=== PATIENT | male | born 1965 | race African-American/Black ===

== ENCOUNTER → 2017-07-27 | Outpatient (CLI) | payer OTHER ==
[~2017-07-27] MED LIST: ASPCH81X PO; CLB/200 PO; FENT50DI19 TD; INSDGI SC; LISI-787 PO; METF-384 PO; NAPR-1169 PO; NVLGI SC; SIMV20TA2 PO; TRAM-10 PO
[2017-07-27 13:02] LABS: ESTIMATED AVERAGE GLUCOSE 214 mg/dl; HA1C FLAG Normal (Normal)
[2017-07-27 13:26] LABS: BLOOD UREA NITROGEN 13 mg/dl (7-18); BUN/CREATININE RATIO 11.4 (10-20); CALCIUM 9.1 mg/dl (8.5-10.1); CARBON DIOXIDE 29 mmol/L (21-32); CHLORIDE 100 mmol/L (98-107); GLUCOSE 325 mg/dl (70-99); POTASSIUM 4.3 mmol/L (3.5-5.1); SODIUM 135 mmol/L (136-145)
== END | disposition home or self-care (01) ==
LOC: C.LABPVFM 09:07
PROVIDERS: ATTEND Nurse Practitioner
DX: E11.65 Type 2 diabetes mellitus with hyperglycemia (principal); I10 Essential (primary) hypertension

== ENCOUNTER → 2017-08-10 | Outpatient (CLI) | payer OTHER ==
[~2017-08-10] VITALS: Ht 170.2 cm; Wt 92.4 kg
[2017-08-10 15:05] VITALS: Ht 170.2 cm; Wt 92.4 kg
--- NOTE | 2017-08-10 15:28 | PAT Medication Instructions ---
Service Date Aug 10, 2017. 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 Instructions For Your Scheduled Surgery - Hold the following medications 48 hours prior to surgery: Metformin Hcl (Glucophage), 1,000 MG PO BID - Hold the following medications the morning of surgery: Celecoxib (CeleBREX), 200 MG PO QAM (otherwise okay to continue per surgeon) Insulin Aspart (Novolog), 1 DOSE SC AC PRN for SLIDING SCALE Lisinopril/Hctz (Zestoretic 20MG/12.5MG), 1 TAB PO QAM - Take the following medications the morning of surgery with a sip of water OTHERWISE NOTHING TO EAT OR DRINK AFTER MIDNIGHT: Tramadol (Ultram), 100 MG PO Q6H PRN (may take if needed up to 4 hours prior to surgery) Simvastatin (Zocor), 20 MG PO QAM - For Insulin Dependent Diabetic patients: Test blood sugar A.M. of surgery. - If Blood Sugar is GREATER THAN 150, take HALF of your regular dose of: Insulin Glargine (Lantus) - If Blood Sugar is LESS THAN 150, do not take any: Insulin Glargine ( Lantus) - Take the following medications as scheduled the night before surgery: Tramadol (Ultram), 100 MG PO Q6H PRN Insulin Aspart (Novolog), 1 DOSE SC AC PRN for SLIDING SCALE If you have any questions please call us at [phone] or [phone] or [phone]
[2017-08-10 16:15] LABS: BASO % 0.2 %; BASO ABS # 0.02 K/uL (0-0.2); COMPLETE YES; EOS % 1.1 %; HEMATOCRIT 41.5 % (42-52); IG% 0.6 %; LYMPH % 30.1 %; LYMPH ABS # 3.26 K/uL (1.2-3.4); MEAN CORPUSCULAR HEMOGLOBIN 27.9 pg (25-34); MEAN CORPUSCULAR HGB CONC 32.8 g/dl (32-36); MEAN PLATELET VOLUME 10.8 fL (7.4-10.4); MONO % 6.2 %; NEUT % 61.8 %; PLATELET COUNT 278 K/uL (130-400); RED BLOOD COUNT 4.88 M/uL (4.7-6.1); WHITE BLOOD COUNT 10.82 K/uL (4.8-10.8)
[2017-08-10 16:28] LABS: PARTIAL THROMBOPLASTIN RATIO 1.1; PROTHROMBIN TIME (PATIENT) 10.5 SECONDS (9.0-12.0)
--- NOTE | 2017-08-10 19:30 | DIAGNOSTIC IMAGING REPORT ---
CHEST 2 VIEWS ROUTINE HISTORY: Preop. COMPARISON: Chest 03/03/2016. FINDINGS: The lungs are clear. Cardiac silhouette is normal in size. No pleural effusions. No pneumothorax. IMPRESSION: No acute process. Electronically signed by: Christian Mitchell M.D. 08/10/2017 7:28 PM Dictated Date/Time: 08/10/2017 4:05 PM
[2017-08-11 06:12] LABS: ESTIMATED AVERAGE GLUCOSE 200 mg/dl; HA1C FLAG Normal (Normal)
--- NOTE | 2017-10-05 09:22 | CODING QUERY MEDICAL NECESSITY ---
SUPPORTING DIAGNOSIS NEEDED A supporting diagnosis is required for the test/procedure performed on this patient in order for us to be reimbursed by the patient's insurance. Please provide a supporting diagnosis for the following test/procedure listed below next to the test name along with your signature. *If there is no additional diagnosis for this patient that would support the following test/procedure please document that below next to the test/procedure. Test(s)/Procedure(s) that require a supporting diagnosis: * HEMOGLOBIN A1C DIAGNOSIS: Provider Signature: Date: Thank you Mitra Jarquin [employer] Once completed, please kindly fax back to [phone] For questions please call [phone]
== END | disposition home or self-care (01) ==
LOC: C.LAB 08:00 → EDSTATUS 08-19 13:00
DX: Z01.810 Encounter for preprocedural cardiovascular examination (principal); Z01.811 Encounter for preprocedural respiratory examination; Z01.812 Encounter for preprocedural laboratory examination; M17.12 Unilateral primary osteoarthritis, left knee; R94.31 Abnormal electrocardiogram [ECG] [EKG]

== ENCOUNTER 2017-11-27 16:44 | Emergency (ER) | payer OTHER ==
[~2017-11-27] VITALS: Ht 170.2 cm; Wt 89.4 kg
[~2017-11-27 16:44] MED LIST changes: -ASPCH81X PO; -FENT50DI19 TD; -NAPR-1169 PO
[2017-11-27 16:53] VITALS: TEMP 36.7; Ht 170.2 cm; Wt 89.4 kg
[2017-11-27] MEDS ORDERED: INSDGIPEN SQ (17:04)
[2017-11-27] MEDS ORDERED: SIMV-151 (17:04)
[2017-11-27] MEDS ORDERED: NVLGI/PEN SQ (17:04)
[2017-11-27] MEDS ORDERED: AMPICILLIN/SULBACTAM SOD INJ 3,000 MG in SODIUM CHLORIDE 0.9% 100ML 100 ML IV STA (17:13)
[2017-11-27] MEDS ORDERED: KETOROLAC TROMETHAMINE 30 MG/ML VIAL IV STA (17:13)
[2017-11-27] MEDS ORDERED: LIDOCAINE/EPINEPH/TETRACAINE 1 EA SYR EXT STA (17:23)
--- NOTE | 2017-11-27 17:24 | EMERGENCY ROOM VISIT NOTE ---
ED Visit Note First contact with patient: 16:57 CHIEF COMPLAINT: Toothache HISTORY OF PRESENT ILLNESS: This 52-year-old male patient presented to the emergency department with a progressive toothache for past 1 week. The patient believes it is coming from the upper left teeth. The pain is now steady and severe and radiates to the face. The patient states he has "bad teeth and they need to be pulled" but does not have a dentist appointment set up and states he has been having trouble getting set up because of problems with his insurance. They rate their pain a 8/10. He states he has not tried any [id number] medications for the pain, but does admit to taking "a pain pill that someone gave me, I know it's illegal, but I just needed something for the pain" He reports the past 2 days that he has had a "bad taste" in his mouth and has noticed pus drainage from around the painful teeth. He has also noticed some increased swelling of his upper lip and cheek. He denies any fevers, chills, headache, vision changes, neck pain or stiffness, difficulty swallowing, sore throat, ear pain, cough, congestion, chest pain, SOB, nausea or vomiting, urinary symptoms, or rash. Patient is a diabetic, on metformin and insulin, and states that he does not check his blood sugars often, but states "they are always high." REVIEW OF SYSTEMS: A complete 10 point review of systems was reviewed with the patient with pertinent positives and negatives as per history of present illness. All else were negative. ALLERGIES: No known allergies MEDICATIONS: Reviewed in chart PMH: Insulin-dependent diabetic, hypertension, hyperlipidemia, chronic pain SOCIAL HISTORY: Lives at home. Current every day smoker. PHYSICAL EXAM: Vitals are noted on the nurse's note and reviewed by myself. Vital signs stable , afebrile. CONSTITUTIONAL: Pleasant and cooperative. No acute distress, but does appear to be in pain. Mild dehydrated. Disheveled appearance with strong smell of cigarette smoke. HEENT: Normocephalic, atraumatic. Pupils equal, round and reactive to light, EOMI, normal conjunctiva bilaterally. TMs normal. Pharynx normal. Dry mucous membranes. MOUTH: Poor dentition noted throughout the mouth with several broken and carious teeth. 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 No discharge noted. The airway is patent. There is mild left upper lip swelling, with tenderness extending up toward the cheek. NECK: Supple, full active range of motion without discomfort.There is no cervical or submandibular lymphadenopathy. RESPIRATORY: Clear to auscultation bilaterally with no wheezing, crackles, rhonchi or stridor. Equal expansion bilaterally. CARDIOVASCULAR: Regular rate and rhythm with no murmurs, rubs or gallops. Normal peripheral perfusion. No edema. GASTROINTESTINAL: Soft, nontender, nondistended. No palpable masses or HSM. Bowel sounds present in all quadrants. MUSCULOSKELETAL: Full range of motion of all joints without discomfort. INTEGUMENTARY: No rash or other significant dermatologic conditions noted. NEUROLOGIC: Alert and oriented X 4 with normal affect. Cranial nerves II-XII grossly intact. No focal neurologic deficits noted. Normal strength and sensation of all 4 extremities. Normal gait observed. Normal speech. Finger- nose-finger testing normal. ED COURSE: I examined the patient. Differential diagnosis includes dental pain , gingivitis, dental caries, periapical abscess, dental fracture, facial cellulitis, hyperglycemia, DKA, poor compliance with medications, among others. Patient has very poor dentition throughout the mouth. There is evidence of a moderate left upper periapical abscess near teeth #11 and 12. There is mild swelling and tenderness of the upper lip, there is no significant facial pain or swelling. Given patient's history of diabetes, labs were assessed, noting significant hyperglycemia with associated hyponatremia/hypochloremia. Labs are otherwise consistent with previous baseline. Patient was given Toradol for pain. 1 L normal saline IV and 10 units regular insulin subcutaneous treat his hyperglycemia. On repeat check, patients' blood glucose was 411. The patient states his blood sugars always this high and he declined any further insulin treatment at this time. The patient was strongly encouraged to monitor his blood sugar at home and take his sliding scale as directed, as well as follow- up with his primary care provider regarding his blood sugars. I discussed risks and benefits of the procedure with the patient, he verbalized understanding. Verbal consent was obtained prior to performing the procedure. The abscess was numbed with LET gel, cleansed with saline and Betadine. A #15 blade scalpel, the abscess drained large amount of bloody and purulent drainage. The abscess cavity was then irrigated with saline, and a gauze roll was placed between the lip and the teeth to apply pressure, with good hemostasis achieved. The patient tolerated the procedure well with no known complications. Medication Reconciliation: I attest that I have personally reviewed the patient' s current medication list. Blood pressure screening: The patient was found to have an elevated blood pressure and was referred to their primary doctor for recheck and further treatment. Patient was discussed with Dr. Crabtree, who also independently examined the patient and agreed with my assessment and plan. Problem List Medical Problems: (1) Arthroscopy of knee joint Status: Resolved (2) Chronic low back pain Status: Chronic (3) Diabetes mellitus, adult onset, with hyperosmolar coma Status: Resolved Current/Historical Medications Scheduled Amoxicillin & Pot Clavulanate (Augmentin 875-125 mg), 1 TAB PO BID Celecoxib (CeleBREX), 200 MG PO QAM Insulin Glargine (Lantus Solostar), 50 UNITS SQ DAILY Lisinopril/Hctz (Zestoretic 20MG/12.5MG), 1 TAB PO QAM Metformin Hcl (Glucophage), 1,000 MG PO BID Simvastatin (Zocor), 20 MG PO QAM Scheduled PRN Insulin Aspart (Novolog Flexpen), SQ AC PRN for HYPERGLYCEMIA Allergies Coded Allergies: No Known Allergies (Unverified , 11/27/17) Vital Signs Date Time Temp Pulse Resp B/P (MAP) Pulse Ox O2 Delivery O2 Flow Rate FiO2 11/27/17 20:16 11/27/17 20:04 85 18 139/94 94 Room Air 11/27/17 18:34 92 154/101 95 Room Air 11/27/17 16:53 36.7 94 18 171/105 97 Room Air Laboratory Results 11/27/17 17:33 Red Blood Count 5.46, Mean Corpuscular Volume 81.5, Mean Corpuscular Hemoglobin 26.6, Mean Corpuscular Hemoglobin Concent 32.6, Mean Platelet Volume 11.3, Neutrophils (%) (Auto) 72.4, Lymphocytes (%) (Auto) 21.9, Monocytes (%) (Auto) 4.6, Eosinophils (%) (Auto) 0.5, Basophils (%) (Auto) 0.2, Neutrophils # (Auto) 6.14, Lymphocytes # (Auto) 1.86, Monocytes # (Auto) 0.39, Eosinophils # (Auto) 0.04, Basophils # (Auto) 0.02 11/27/17 17:33 Test 11/27/17 17:33 11/27/17 19:46 White Blood Count 8.48 K/uL (4.8-10.8) Red Blood Count 5.46 M/uL (4.7-6.1) Hemoglobin 14.5 g/dL (14.0-18.0) Hematocrit 44.5 % (42-52) Mean Corpuscular Volume 81.5 fL (80-100) Mean Corpuscular Hemoglobin 26.6 pg (25-34) Mean Corpuscular Hemoglobin Concent 32.6 g/dl (32-36) Platelet Count 250 K/uL (130-400) Mean Platelet Volume 11.3 fL (7.4-10.4) Neutrophils (%) (Auto) 72.4 % Lymphocytes (%) (Auto) 21.9 % Monocytes (%) (Auto) 4.6 % Eosinophils (%) (Auto) 0.5 % Basophils (%) (Auto) 0.2 % Neutrophils # (Auto) 6.14 K/uL (1.4-6.5) Lymphocytes # (Auto) 1.86 K/uL (1.2-3.4) Monocytes # (Auto) 0.39 K/uL (0.11-0.59) Eosinophils # (Auto) 0.04 K/uL (0-0.5) Basophils # (Auto) 0.02 K/uL (0-0.2) RDW Standard Deviation 35.4 fL (36.4-46.3) RDW Coefficient of Variation 12.0 % (11.5-14.5) Immature Granulocyte % (Auto) 0.4 % Immature Granulocyte # (Auto) 0.03 K/uL (0.00-0.02) Anion Gap 7.0 mmol/L (3-11) Est Creatinine Clear Calc Drug Dose 55.3 ml/min Estimated GFR () 54.5 Estimated GFR (Non- 47.1 BUN/Creatinine Ratio 12.2 (10-20) Lactic Acid Level 1.4 mmol/L (0.4-2.0) Calcium Level 9.1 mg/dl (8.5-10.1) Beta-Hydroxybutyric Acid 4.35 mg/dL (0.2-2.81) Bedside Glucose 411 mg/dl (70-99) Medications Administered Medications (Trade) Dose Ordered Sig/Brittaney Route Start Time Stop Time Status Last Admin Dose Admin Ampicillin Sodium/ Sulbactam Sodium 3000 mg/Sodium Chloride 108 ml @ 200 mls/hr NOW STAT IV 11/27/17 17:13 11/27/17 17:45 DC 11/27/17 17:47 200 MLS/HR Ketorolac Tromethamine (Toradol Inj) 15 mg NOW STAT IV 11/27/17 17:13 11/27/17 17:18 DC 11/27/17 17:45 15 MG Tetracaine/ Epinephrine/ Lidocaine (L.e.t. Gel 4%/ 1:100/0.5%) 1 ea UD STAT EXT 11/27/17 17:23 11/27/17 17:24 DC 11/27/17 18:32 1 EA Sodium Chloride 1,000 ml @ 999 mls/hr Q1H1M STAT IV 11/27/17 17:37 11/27/17 18:37 DC 11/27/17 17:37 999 MLS/HR Insulin Human Regular (novoLIN-R) 10 units NOW STAT SC 11/27/17 17:37 11/27/17 17:41 DC 11/27/17 17:37 10 UNITS Amoxicillin/ Clavulanate Potassium (Augmentin Tab) 875 mg BID PO 11/27/17 21:00 11/27/17 21:00 DC 11/27/17 20:08 875 MG Departure Information Impression Primary Impression: Abscess, dental Additional Impressions: Poor dentition Hyperglycemia Dispostion Home / Self-Care Condition GOOD Prescriptions Amoxicillin & Pot Clavulanate (Augmentin 875-125 mg) 1 Tab Tab 1 TAB PO BID for 9 Days, #18 TAB Prov: Becca Conner CRNP 11/27/17 Referrals Mine Maxwell C.R.N.P (PCP) Mark Hampton D.M.D Patient Instructions ED Abscess Dental, [facility] Additional Instructions You have been seen in the emergency department for your dental abscess. You were also found to have a very high blood sugar today. You were prescribed Augmentin to be taken twice a day for 10 days. This is an antibiotic to treat your dental infection. All antibiotics have the potential to cause diarrhea, you should eat yogurt or take it daily probiotic to help prevent this. Stop this medication and contact a medical provider if you were to develop any significant adverse side effects including: wheezing, shortness of breath, passing out, vomiting, or a diffuse rash. Always take antibiotics as directed and COMPLETE the ENTIRE course regardless of the improvement of your symptoms. For pain control, you may take the following ixiq-gmi-zjnfrha medications: - Extra strength Tylenol (500 mg) 1-2 tablets every 6-8 hours as needed for pain. Do not take more than 3000 mg of Tylenol in 24 hours. - Ibuprofen (200 mg) 2-3 tablets every 6-8 hours as needed for pain. Do not take more than 2400 mg of ibuprofen in 24 hours. - For this pain results, you may alternate between ibuprofen and Tylenol every 3 -4 hours. Swish and spit with warm saltwater 4 times a day for the next 3 days. Call the dentist (information provided to you today) first thing Wednesday to get set up with an appointment for follow-up. Follow up with your PCP in the next week to have your blood sugar rechecked. Take your insulin as prescribed. Please return to the emergency department immediately for any worsening symptoms , including severe worsening pain, increased facial swelling, redness, difficulty swallowing or breathing, severe headaches, vision changes, persistent nausea or vomiting, fever/chills/feeling ill, or any other concerns. Problem Qualifiers
[2017-11-27] MEDS ORDERED: INSULIN HUMAN REGULAR SC STA (17:37)
[2017-11-27] MEDS ORDERED: SODIUM CHLORIDE 0.9% 1000ML 1,000 ML IV STA (17:37)
--- NOTE | 2017-11-27 17:40 | EMERGENCY ROOM VISIT NOTE ---
ED Visit Note First contact with patient: 16:57 This Patient was discussed with the nurse practitioner, Becca Conner NP. The pertinent historical and physical exam findings were confirmed. I agree with the studies ordered and with the interpretations of these studies. I agree with the disposition and care plan.
[2017-11-27 17:54] LABS: BASO % 0.2 %; BASO ABS # 0.02 K/uL (0-0.2); EOS % 0.5 %; EOS ABS # 0.04 K/uL (0-0.5); HEMATOCRIT 44.5 % (42-52); HEMOGLOBIN 14.5 g/dL (14.0-18.0); IG# 0.03 K/uL (0.00-0.02); LYMPH % 21.9 %; LYMPH ABS # 1.86 K/uL (1.2-3.4); MEAN CELL VOLUME 81.5 fL (80-100); MEAN CORPUSCULAR HEMOGLOBIN 26.6 pg (25-34); MEAN CORPUSCULAR HGB CONC 32.6 g/dl (32-36); MEAN PLATELET VOLUME 11.3 fL (7.4-10.4); MONO % 4.6 %; MONO ABS # 0.39 K/uL (0.11-0.59); NEUT % 72.4 %; NEUT ABS # 6.14 K/uL (1.4-6.5); PLATELET COUNT 250 K/uL (130-400); RED CELL DISTRIBUTION WIDTH SD 35.4 fL (36.4-46.3); WHITE BLOOD COUNT 8.48 K/uL (4.8-10.8)
[2017-11-27 18:23] LABS: CALCIUM 9.1 mg/dl (8.5-10.1); CREATININE 1.63 mg/dl (0.60-1.40); POTASSIUM 4.3 mmol/L (3.5-5.1)
[2017-11-27] MEDS ORDERED: AMOX875T PO (20:02)
[2017-11-27 20:04] VITALS: BP 139/94; PULSE 85; O2SAT 94
[2017-11-27] MEDS ORDERED: AMOXICILLIN/CLAVULANATE TAB 875 MG TAB PO SCH (21:00)
== END 2017-11-27 20:17 | disposition home or self-care (01) ==
LOC: C.EDB 16:45 → C.EDC 20:17
DX: K04.7 Periapical abscess without sinus (principal); R73.9 Hyperglycemia, unspecified; E11.9 Type 2 diabetes mellitus without complications; I10 Essential (primary) hypertension; E78.5 Hyperlipidemia, unspecified; F17.200 Nicotine dependence, unspecified, uncomplicated; Z79.4 Long term (current) use of insulin

== ENCOUNTER 2018-01-02 06:46 | Emergency (ER) | payer OTHER ==
[~2018-01-02] VITALS: Ht 170.2 cm; Wt 100.0 kg
[~2018-01-02 06:46] MED LIST changes: -INSDGI SC; +INSDGIPEN SQ; -NVLGI SC; +NVLGI/PEN SQ; -TRAM-10 PO
[2018-01-02 06:49] VITALS: TEMP 37.1; Ht 170.2 cm; Wt 100.0 kg
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
[2018-01-02] MEDS ORDERED: KETO10TA PO (09:45)
[2018-01-02 10:02] VITALS: BP 130/89; PULSE 91; O2SAT 97
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
== END 2018-01-02 10:03 | disposition home or self-care (01) ==
LOC: C.EDB 06:47
DX: M54.2 Cervicalgia (principal); M54.5 Low back pain; M25.551 Pain in right hip; V49.50XA Passenger injured in collision with unspecified motor vehicles in traffic accident, initial encounter; G89.29 Other chronic pain; M16.11 Unilateral primary osteoarthritis, right hip; M85.88 Other specified disorders of bone density and structure, other site; E11.9 Type 2 diabetes mellitus without complications; F17.200 Nicotine dependence, unspecified, uncomplicated; K02.9 Dental caries, unspecified

== ENCOUNTER → 2018-01-07 | Outpatient (CLI) | payer OTHER ==
[~2018-01-07] MED LIST changes: -CLB/200 PO; +KETO10TA PO
[2018-01-07 17:42] LABS: ALBUMIN 3.5 gm/dl (3.4-5.0); ALT/SGPT 33 U/L (12-78); BLOOD UREA NITROGEN 8 mg/dl (7-18); CALCIUM 8.7 mg/dl (8.5-10.1); CARBON DIOXIDE 29 mmol/L (21-32); CHOLESTEROL 213 mg/dl (0-200); CREATININE 1.05 mg/dl (0.60-1.40); GLUCOSE 150 mg/dl (70-99); POTASSIUM 4.5 mmol/L (3.5-5.1); SODIUM 133 mmol/L (136-145)
[2018-01-07 17:45] LABS: ALKALINE PHOSPHATASE 83 U/L (45-117); AST/SGOT 17 U/L (15-37); LDL CHOLESTEROL CALCULATED 153 mg/dl; TOTAL PROTEIN 6.9 gm/dl (6.4-8.2)
[2018-01-08 06:52] LABS: HEMOGLOBIN A1C 11.8 % (4.5-5.6)
== END | disposition home or self-care (01) ==
LOC: C.LABPVFM 11:13
PROVIDERS: ATTEND Nurse Practitioner
DX: E11.65 Type 2 diabetes mellitus with hyperglycemia (principal); I10 Essential (primary) hypertension

== ENCOUNTER → 2018-07-08 | Outpatient (CLI) | payer OTHER ==
[~2018-07-08] MED LIST changes: -KETO10TA PO
== END | disposition home or self-care (01) ==
LOC: C.LAB 22:16
DX: Z02.83 Encounter for blood-alcohol and blood-drug test (principal)

== ENCOUNTER 2019-11-21 14:00 | Inpatient (IN) ==
[2019-11-21] MEDS ORDERED: MoRPHine SULFATE 10 MG/ML CARP/VIAL IV STA (14:35)
--- NOTE | 2019-11-21 14:53 | XRay Report ---
XR chest 1V portable HISTORY: 54 years-old Male Fall, central chest pain acute atypical chest pain with fall COMPARISON: Chest CT 05/29/2019, chest radiographs 10/30/2013 TECHNIQUE: Portable AP view of the chest FINDINGS: Cardiac silhouette is upper limits of normal in size, likely accentuated by technique. Mild hypoinfla tion with right hemidiaphragmatic elevation. Minimal bibasilar opacities suggest atelectasis. No pneu mothorax, large pleural effusion or overt pulmonary edema. Mild degenerative changes of the shoulders and spine. IMPRESSION: No acute process. ACT 112: Negative or not required by law. The above report was generated using voice recognition software. It may contain grammatical, syntax o r spelling errors. Electronically signed by: Yousuf Tavarez M.D. 11/21/2019 2:52 PM
--- NOTE | 2019-11-21 14:54 | XRay Report ---
XR knee LT 3V HISTORY: 54 years-old Male fall, elft knee pain acute left knee pain status post fall COMPARISON: Left knee radiographs 05/29/2019 TECHNIQUE: 3 views of the left knee FINDINGS: Severe medial and patellofemoral with moderate lateral compartment osteoarthritis. No acute fracture, dislocation or opaque foreign body identified. Mild prepatellar soft tissue swelling with small join t effusion suspected. IMPRESSION: 1. No acute fracture or dislocation. 2. Severe osteoarthritis as above. ACT 112: Negative or not required by law. The above report was generated using voice recognition software. It may contain grammatical, syntax o r spelling errors. Electronically signed by: Yousuf Tavarez M.D. 11/21/2019 2:53 PM
--- NOTE | 2019-11-21 14:54 | XRay Report ---
XR hip LT 2V w pelvis CLINICAL HISTORY: fall, left hip pain COMPARISON: CT of the abdomen and pelvis May 29, 2019. Pelvis radiograph January 02, 2018. FINDINGS: Sacroiliac joints and symphysis pubis are intact. There is complete loss of the superior l eft hip joint space with mild sclerosis and extensive subchondral cystic change. This is similar to p rior CT. Moderate right hip osteoarthritis noted. There is no acute fracture or osseous lesion within the pelvis or hips. IMPRESSION: 1. No acute fracture within the pelvis or hips. 2. Severe left hip osteoarthritis. Moderate right hip osteoarthritis. ACT 112: Negative or not required by law. Electronically signed by: Arcadio Godfrey M.D. 11/21/2019 2:53 PM
[2019-11-21 15:23] LABS: Basophils # (auto) 0.01 K/uL (0-0.2); Basophils % (auto) 0.2 %; Eosinophils # (auto) 0.03 K/uL (0-0.5); Eosinophils % (auto) 0.5 %; Hematocrit (blood only) 36.1 % (42-52); Hemoglobin 11.8 g/dL (14.0-18.0); Immature Granulocytes # (auto) 0.05 K/uL (0.00-0.02); Immature Granulocytes % (auto) 0.8 %; Lymphocytes # (auto) 1.66 K/uL (1.2-3.4); Lymphocytes % (auto) 25.4 %; Mean Corpuscular Hemoglobin 28.2 pg (25-34); Mean Corpuscular Hgb Conc 32.7 g/dL (32-36); Mean Corpuscular Volume 86.2 fL (80-100); Mean Platelet Volume 9.9 fL (7.4-10.4); Monocytes # (auto) 0.34 K/uL (0.11-0.59); Monocytes % (auto) 5.2 %; Neutrophils # (auto) 4.45 K/uL (1.4-6.5); Neutrophils % (auto) 67.9 %; Platelet Count 274 K/uL (130-400); RDW Coefficient of Variation 12.3 % (11.5-14.5); RDW Standard Deviation 38.9 fL (36.4-46.3); Red Blood Count 4.19 M/uL (4.7-6.1); White Blood Count 6.54 K/uL (4.8-10.8)
[2019-11-21] MEDS ORDERED: SODIUM CHLORIDE 0.9% 1000ML 1,000 ML IV ONE ×2 (15:28→15:59)
[2019-11-21 15:40] LABS: Alanine Aminotransferase 24 U/L (12-78); Albumin Level 3.6 gm/dl (3.4-5.0); Aspartate Aminotransferase 16 U/L (15-37); BUN Creatinine Ratio 27.4 (10-20); Bilirubin Direct 0.2 mg/dl (0-0.2); Blood Urea Nitrogen 78 mg/dl (7-18); Carbon Dioxide 28 mmol/L (21-32); Chloride 96 mmol/L (98-107); Est GFR (African American) 27.5; Est GFR (Non-African American) 23.7; Glucose 259 mg/dl (70-99); Lipase 129 U/L (73-393); Potassium 5.1 mmol/L (3.5-5.1); Sodium 131 mmol/L (136-145)
[2019-11-21 15:45] LABS: Alkaline Phosphatase 84 U/L (45-117); Bilirubin,Total 0.7 mg/dl (0.2-1); Total Protein 7.8 gm/dl (6.4-8.2); Troponin I < 0.015 ng/ml (0-0.045)
[2019-11-21 17:13] LABS: Appearance Urine Clear (Clear); Bilirubin Urine Negative (Negative); Blood Urine Negative (Negative); Color Urine Yellow; Glucose Urine UA 2+ (Negative); Ketones Urine Negative (Negative); Leukocyte Esterase Urine Negative (Negative); Nitrite Urine Negative (Negative); Protein Urine Negative (Negative); Specific Gravity Urine 1.012 (1.000-1.030); Urobilinogen Urine Negative (Negative); pH Urine 5.5 (4.5-7.5)
--- NOTE | 2019-11-21 17:27 | History & Physical Report ---
Date of Service November 21, 2019 Assessment & Plan (1) Acute kidney injury: Suspect this is multifactorial, including recent viral syndrome with decreased p.o. intake, medications (hydrochlorothiazide, lisinopril, Celebrex), along with a degree of chronic renal insufficiency per lab work. Plan to continue gentle IV hydration. Hold off on medications as noted. Check renal ultrasound. Bladder scan to ensure no urine retention. (2) Uncontrolled diabetes mellitus: Recheck hemoglobin A1c. Continue Basaglar per outpatient medications, patient does note that he is not always compliant with this. Start sliding scale insulin. Will hold metformin till renal function improves. (3) Hypertension: Blood pressure mildly elevated, may need to adjust medications depending on improvement in renal function. (4) Osteoarthritis: Hold off on NSAIDs. Will try tramadol along with Tylenol. PT/OT evaluation. Patient does have plans to discuss with joint replacement with orthopedics near future, but he is working on his poor dentition first History of Present Illness Primary Care Provider: VANNESSA Wolfe This is a 54-year-old male with past medical history of uncontrolled insulin- dependent diabetes and severe left knee and hip osteoarthritis that presents today complaining of pain. Patient is accompanied by and son, all are good historians. Patient tells me that he recently recovered from a flulike syndrome that lasted approximately 48 hours. Patient with including significant nausea and vomiting along with decreased p.o. intake. Patient did not seek medical attention at this time but he recovered. However, he has been having ongoing weakness since this. He has been compliant with his medications. Last night he states that due to his weakness he fell down some stairs. He struck his left side but not his head. He had no loss of consciousness. He felt that his knee hip is giving out on him. The pain is been persistent which prompted him to seek medical attention today. In the ER, x-rays were essentially negative for significant trauma. However, patient was found to be in worsening renal failure when compared to old lab work. While patient admits to generalized weakness, he denies any dysuria, hematuria, urinary retention, flank pain, fever, or other symptoms. Patient did have some trouble adjusting himself in the ER stretcher secondary to this pain. He does note that he is previously narcotics was because approximately year ago as he was running out early. He has been using Celebrex at home as needed. Allergies Allergy/AdvReac Type Severity Reaction Status Date / Time NovoLOG SOLN Allergy Unknown Cramping Uncoded 11/21/19 15:28 of the Muscles Home Medications Home Medications Medication Instructions Recorded Confirmed Type lisinopril-hydrochlorothiazide 1 tab PO DAILY 05/29/19 11/21/19 History metformin 1,000 mg PO BID 05/29/19 11/21/19 History cyclobenzaprine 10 mg tablet 10 mg PO TID PRN #60 tab 08/31/19 11/21/19 Rx Accu-Chek Fastclix Lancet Drum #300 ea NS 11/09/19 Rx blood-glucose meter #1 ea 11/09/19 Rx insulin glargine [Basaglmichael JacksonikPen 56 unit SUBCUT QAM 11/21/19 11/21/19 History U-100 Insulin] Past Med/Surg History Medical History (Updated 11/21/19 @ 17:52 by Jc Hale MD) Chronic back pain (Chronic) Chronic hip pain (Chronic) Chronic knee pain (Chronic) Diabetes mellitus Hyperlipidemia (Chronic) Hypertension (Chronic) Surgical History History of surgical removal of meniscus of knee Family History Other Diabetes Hypertension Social History Preferred Language: Jamaican Communication Ability: Effective Safety Companion Required: No Beliefs That Will Affect Care: None marital status: Current Living Situation: Spouse and Family Other Information That Helps Us Care for You: No Feels Safe at Home: Yes Safety Concerns: Feels Safe At This Time Smoking Status: Current every day smoker Tobacco Type: cigarettes ; Cigarettes Per Day: 20 ; Do You Dip or Chew Tobacco: No ; Smoking End Date: quit and restarted ; Second Hand Exposure: No ; Tobacco Cessation Education Requested by Patient: No Hx Alcohol Use: No Hx Substance Use: No Review of Systems Constitutional: + body aches, + fatigue and + anorexia; no fever Ear, Nose, Mouth, Throat: as per Subjective / HPI Respiratory: no cough, no change in sputum, no dyspnea and no wheezing Cardiovascular: no chest pain, no dyspnea, no orthopnea and no lightheadedness Gastrointestinal: + nausea and + vomiting; no coffee ground emesis, no dysphagia, no constipation and no diarrhea/loose stools Genitourinary: no dysuria, no difficulty urinating, no urinary frequency, no urinary hesitancy, no decreased urination, no hematuria and no flank pain Musculoskeletal: + joint pain Integumentary: as per Subjective / HPI Neurologic: as per Subjective / HPI Psychiatric: as per Subjective / HPI Endocrine: no fatigue, no polydipsia, no polyphagia and no polyuria Physical Exam Constitutional: well nourished; no acute distress ENMT: Mouth: + dry oral mucous membranes; no lip abnormality, no oral mucosal abnormality and no tongue abnormality Neck: trachea midline, no thyromegaly Respiratory: Auscultation: lungs clear to auscultation bilaterally; no crackles, no rales and no wheezes Cardiovascular: Rate/Rhythm: regular rate and regular rhythm Heart Sounds: normal S1 and normal S2 Vessels: no JVD Gastrointestinal (Abdomen): Inspection/Auscultation: abdomen normal to inspection Percussion/Palpation: abdomen soft; abdomen nontender and no guarding Musculoskeletal: Extremities: extremities normal to inspection Skin: no rashes, warm and dry Neurologic: PERRL, EOMI, accommodation nl, no face palsy, no dysarthria Psychiatric: A+Ox3, euthymic affect Results & Data Vital Signs (Past 12 Hours) Vital Signs Temp Pulse Resp BP Pulse Ox 11/21/19 16:31 92 H 18 95 11/21/19 16:30 94 H 25 H 140/80 90 11/21/19 16:10 97 H 32 H 117/76 97 11/21/19 16:01 87 14 94/67 L 11/21/19 16:00 86 24 11/21/19 15:37 93 H 27 H 96 11/21/19 15:30 89 17 93/59 L 95 11/21/19 14:08 36.5 C 69 18 97/70 L 98 Laboratory Results Labs reviewed. Patient is mildly anemic with a hemoglobin of 0.8, hematocrit of 36.1. Sodium is 131. Creatinine is 2.84 with a BUN of 78, both significantly elevated from 12/06/2018 labs of 10/1.34. Glucose is 259. Last hemoglobin A1c is from 12/06/2018 which was 10.8. LFTs are normal, UA shows glucose but is otherwise bland. Diagnostic Findings XR chest 1V portable HISTORY: 54 years-old Male Fall, central chest pain acute atypical chest pain with fall COMPARISON: Chest CT 05/29/2019, chest radiographs 10/30/2013 TECHNIQUE: Portable AP view of the chest FINDINGS: Cardiac silhouette is upper limits of normal in size, likely accentuated by technique. Mild hypoinflation with right hemidiaphragmatic elevation. Minimal bibasilar opacities suggest atelectasis. No pneumothorax, large pleural effusion or overt pulmonary edema. Mild degenerative changes of the shoulders and spine. IMPRESSION: No acute process. -- XR hip LT 2V w pelvis CLINICAL HISTORY: fall, left hip pain COMPARISON: CT of the abdomen and pelvis May 29, 2019. Pelvis radiograph January 02, 2018. FINDINGS: Sacroiliac joints and symphysis pubis are intact. There is complete loss of the superior left hip joint space with mild sclerosis and extensive subchondral cystic change. This is similar to prior CT. Moderate right hip osteoarthritis noted. There is no acute fracture or osseous lesion within the pelvis or hips. IMPRESSION: 1. No acute fracture within the pelvis or hips. 2. Severe left hip osteoarthritis. Moderate right hip osteoarthritis. --- XR knee LT 3V HISTORY: 54 years-old Male fall, elft knee pain acute left knee pain status post fall COMPARISON: Left knee radiographs 05/29/2019 TECHNIQUE: 3 views of the left knee FINDINGS: Severe medial and patellofemoral with moderate lateral compartment osteoarthritis. No acute fracture, dislocation or opaque foreign body identified. Mild prepatellar soft tissue swelling with small joint effusion suspected. IMPRESSION: 1. No acute fracture or dislocation. 2. Severe osteoarthritis as above. PG Care Time/CCT Total # of Minutes Spent Total Time Spent with Patient: Total time spent is greater than 50% in coordination of care (as documented) at patient's floor/unit and/or counseling patient:
--- NOTE | 2019-11-21 17:53 | Emergency Department Note ---
Entered by Sirena Zepeda acting as a scribe for ED Provider Note Name: NGA SHAVER Age: 54 Arrives Via: Walk-In Informant: Patient CC: Fall HPI: 54M arrives for evaluation of an episode of a fall occurring yesterday. The patient reports that his left hip gave out and he tumbled down some steps. He states that he is unsure if he hit his chest and head, but he notes that she started experiencing substernal chest pain immediately. He indicates that his pain worsens with eating, coughing, and sneezing. The patient otherwise denies any headaches, neck pain, shoulder pain, abdominal pain, back pain, nausea, and knee swelling. He mentions that he is in need of a left hip and left knee r eplacement and that they are always painful. He adds that Dr. Monson is his PCP, although he has not seen him in a while. ROS: See above HPI for pertinent positives & negatives. A total of 10 systems reviewed and were otherwise negative. Past Medical History:Hypertension, hyperlipidemia, chronic back pain, chronic hip pain, chronic knee pain, diabetes Past Surgical History:Bilateral meniscus surgery Family History:Hypertension, diabetes Social History:Marshallese, , smoker Home Medications:Cyclobenzaprine, insulin glargine, Lisinopril- Hydrochlorothiazide, Metformin Allergies: Novolog Vitals:BP 97/70, P 69, R 18, T 97.7F, O2 Sat 98 Physical Exam: GENERAL: Patient is uncomfortable appearing and in moderate distress. Dehydrated appearing EYES: No scleral icterus, unremarkable pupils. ENT: Mucous membranes dry, no nasal congestion. NECK: No masses appreciated, nomeningismus, trachea is midline. CHEST: Mild tenderness over the mid lower chest. RESPIRATORY: No dyspnea. Clear to auscultation and equal bilaterally. No wheeze, no rhonchi. CARDIOVASCULAR: Regular rate and rhythm.No murmurs, rubs, gallops appreciated. GASTROINTESTINAL: Abdomen soft, non-tender, no peritonitis.Bowel sounds positive.No masses appreciated. BACK: No midline tenderness, no CVA tenderness EXTREMITIES: Normal motion all extremities, no cyanosis, no edema. Tenderness over the left knee and left hip. NEUROLOGIC: Alert and oriented, no acute motor or sensory deficits, no focal weakness, cranial nerves grossly intact. SKIN: No rash, no jaundice, no diaphoresis. ED Course: Prior Medical Record, Triage/Nursing Notes, Medications, Allergies reviewed by Aldo erwin Vital Signs: reviewed and remarkable for hypotension Labs:Reviewed and remarkable for elevated Cr Interventions: Saline lock, morphine 8mg IV, NSS Bolus 2L IV Imaging:See below EKG:Per My Interpretation: Indication Chest Pain: NSR 91 bpm, qtc 400. No Ectopy. No Ischemia. No previous for comparison Reassessments/Times: 1427: The patient was evaluated in room B7, and a complete history and physical examination were performed. 1632: The [facility] hospitalist was paged at this time. 1656: I reviewed the patient's case with Dr. Guerrero - Hospitalist, [facility]. Dr. Guerrero will evaluate the patient for further management. Blood pressure:Hypotension Disposition:Hospitalization Differentials:Contusion, Fracture, Dehydration, sepsis, ACS, PE, Dissection, amongst other pathologies. Medical Decision Makin yr old male with DM, HTN, DLP history with long osteoporisis arrives after fall down stairs without head/neck injury. He is quite dehydrated on arrival and uncomfortable. CXR and leg xrays negative acute findings. He is hypotensive on arrival and thus fluids ordered while awaiting labs. No evidence ACS. Symptoms note consistent with Dissection nor PE. He has evidence of acute renal failure by labs. This is likely cause of hypotension secondary to dehydration. BSG mildly elevated though not in DKA. Hospitalist in to evaluate further. I do not feel there is any significant injury besides superficial contusion to chest. No indication for CT nor trauma eval at this time. Impression: Acute Renal Failure Acute Dehydration Fall Chest Wall Contusion The scribe's documentation has been prepared under my direction and personally reviewed by me in its entirety. I confirm that the note above accurately reflects all work, treatment, procedures, and medical decision making performed by me. Jc Hale MD Impression & Plan Acute renal failure, Acute dehydration, Fall, Chest wall contusion Past Med/Surg History Medical History (Updated 11/21/19 @ 17:52 by Jc Hale MD) Chronic back pain (Chronic) Chronic hip pain (Chronic) Chronic knee pain (Chronic) Diabetes mellitus Hyperlipidemia (Chronic) Hypertension (Chronic) Surgical History History of surgical removal of meniscus of knee Family History Other Diabetes Hypertension Social History Preferred Language: Marshallese Communication Ability: Effective School Nurse Required: No Beliefs That Will Affect Care: None marital status: Current Living Situation: Spouse and Family Other Information That Helps Us Care for You: No Feels Safe at Home: Yes Safety Concerns: Feels Safe At This Time Smoking Status: Current every day smoker Tobacco Type: cigarettes ; Cigarettes Per Day: 20 ; Do You Dip or Chew Tobacco: No ; Smoking End Date: quit and restarted ; Second Hand Exposure: No ; Tobacco Cessation Education Requested by Patient: No Hx Alcohol Use: No Hx Substance Use: No Results & Data Vital Signs Vital Signs - 24 hr 11/21/19 14:08 11/21/19 15:30 11/21/19 15:37 Temperature 36.5 C Temperature Source Oral Pulse Rate 69 89 93 H Pulse Rate from SpO2 Sensor 89 93 H Pulse Rhythm Regular Respiratory Rate 18 17 27 H Respiratory Effort / Characteristics Non-Labored Respiratory Depth Normal Respiratory Pattern Regular Blood Pressure 97/70 L 93/59 L Blood Pressure Mean 79 63 Blood Pressure Position Sitting Pulse Oximetry 98 95 96 Oxygen Delivery Method Room Air Sepsis Recent Fever Within 48 Hours No Sepsis New/Unexplained Change in Mental Status No Sepsis Action Taken by Nursing No Action Required 11/21/19 16:00 11/21/19 16:01 11/21/19 16:10 Temperature Temperature Source Pulse Rate 86 87 97 H Pulse Rate from SpO2 Sensor 98 H Pulse Rhythm Respiratory Rate 24 14 32 H Respiratory Effort / Characteristics Respiratory Depth Respiratory Pattern Blood Pressure 94/67 L 117/76 Blood Pressure Mean 80 81 Blood Pressure Position Pulse Oximetry 97 Oxygen Delivery Method Sepsis Recent Fever Within 48 Hours Sepsis New/Unexplained Change in Mental Status Sepsis Action Taken by Nursing 11/21/19 16:30 11/21/19 16:31 Temperature Temperature Source Pulse Rate 94 H 92 H Pulse Rate from SpO2 Sensor 93 H 94 H Pulse Rhythm Respiratory Rate 25 H 18 Respiratory Effort / Characteristics Respiratory Depth Respiratory Pattern Blood Pressure 140/80 Blood Pressure Mean 93 Blood Pressure Position Pulse Oximetry 90 95 Oxygen Delivery Method Sepsis Recent Fever Within 48 Hours Sepsis New/Unexplained Change in Mental Status Sepsis Action Taken by Intermediate Medications Current Medication List: was personally reviewed by me Laboratory Data Attestation: I reviewed the patient's lab results. Result diagrams: 11/21/19 15:14 11/21/19 15:14 Lab Results 11/21/19 11/21/19 11/21/19 Range/Units 15:14 15:14 17:02 WBC 6.54 (4.8-10.8) K/uL RBC 4.19 L (4.7-6.1) M/uL Hgb 11.8 L (14.0-18.0) g/dL Hct 36.1 L (42-52) % MCV 86.2 (80-100) fL MCH 28.2 (25-34) pg MCHC 32.7 (32-36) g/dL RDW Std Deviation 38.9 (36.4-46.3) fL RDW Coeff of Mayur 12.3 (11.5-14.5) % Plt Count 274 (130-400) K/uL MPV 9.9 (7.4-10.4) fL Immature Gran % (Auto) 0.8 % Neut % (Auto) 67.9 % Lymph % (Auto) 25.4 % Christian % (Auto) 5.2 % Eos % (Auto) 0.5 % Baso % (Auto) 0.2 % Immature Gran # (Auto) 0.05 H (0.00-0.02) K/uL Neut # (Auto) 4.45 (1.4-6.5) K/uL Lymph # (Auto) 1.66 (1.2-3.4) K/uL Christian # (Auto) 0.34 (0.11-0.59) K/uL Eos # (Auto) 0.03 (0-0.5) K/uL Baso # (Auto) 0.01 (0-0.2) K/uL Sodium 131 L (136-145) mmol/L Potassium 5.1 (3.5-5.1) mmol/L Chloride 96 L (98-107) mmol/L Carbon Dioxide 28 (21-32) mmol/L Anion Gap 7.0 (3-11) BUN 78 H (7-18) mg/dl Creatinine 2.84 H (0.6-1.4) mg/dl Est Cr Clr Drug Dosing Not Reportable Est GFR ( Amer) 27.5 Est GFR (Non-Af Amer) 23.7 BUN/Creatinine Ratio 27.4 H (10-20) Glucose 259 H (70-99) mg/dl Calcium 9.0 (8.5-10.1) mg/dl Total Bilirubin 0.7 (0.2-1) mg/dl Direct Bilirubin 0.2 (0-0.2) mg/dl AST 16 (15-37) U/L ALT 24 (12-78) U/L Alkaline Phosphatase 84 (45-117) U/L Troponin I < 0.015 (0-0.045) ng/ml Total Protein 7.8 (6.4-8.2) gm/dl Albumin 3.6 (3.4-5.0) gm/dl Lipase 129 (73-393) U/L Urine Color Yellow Urine Appearance Clear (Clear) Urine pH 5.5 (4.5-7.5) Ur Specific [place] 1.012 (1.000-1.030) Urine Protein Negative (Negative) Urine Glucose (UA) 2+ H (Negative) Urine Ketones Negative (Negative) Urine Blood Negative (Negative) Urine Nitrite Negative (Negative) Urine Bilirubin Negative (Negative) Urine Urobilinogen Negative (Negative) Ur Leukocyte Esterase Negative (Negative) Administered Medications Discontinued Medications Sodium Chloride (Nss 1000ml) 1,000 mls @ 999 mls/hr IV .Q1H1M ONE Stop: 11/21/19 16:28 Last Infusion: 11/21/19 16:40 Dose: 0 mls/hr Documented by: [id number] Admin: 11/21/19 15:46 Dose: 999 mls/hr Documented by: [id number] Sodium Chloride (Nss 1000ml) 1,000 mls @ 999 mls/hr IV .Q1H1M ONE Stop: 11/21/19 16:59 Last Infusion: 11/21/19 17:32 Dose: 0 mls/hr Documented by: [id number] Admin: 11/21/19 16:37 Dose: 999 mls/hr Documented by: [id number] Morphine Sulfate (Morphine Sulfate) 8 mg IV NOW STA Stop: 11/21/19 14:36 Last Admin: 11/21/19 16:37 Dose: 8 mg Documented by: [id number] Imaging Data Radiologist's Impression: Radiology results as stated below per my review and the radiologist's interpretation: XR chest 1V portable HISTORY: 54 years-old Male Fall, central chest pain acute atypical chest pain with fall COMPARISON: Chest CT 05/29/2019, chest radiographs 10/30/2013 TECHNIQUE: Portable AP view of the chest FINDINGS: Cardiac silhouette is upper limits of normal in size, likely accentuated by technique. Mild hypoinflation with right hemidiaphragmatic elevation. Minimal bibasilar opacities suggest atelectasis. No pneumothorax, large pleural effusion or overt pulmonary edema. Mild degenerative changes of the shoulders and spine. IMPRESSION: No acute process. ACT 112: Negative or not required by law. The above report was generated using voice recognition software. It may contain grammatical, syntax or spelling errors. Electronically signed by: Yousuf Tavarez M.D. 11/21/2019 2:52 PM XR hip LT 2V w pelvis CLINICAL HISTORY: fall, left hip pain COMPARISON: CT of the abdomen and pelvis May 29, 2019. Pelvis radiograph January 02, 2018. FINDINGS: Sacroiliac joints and symphysis pubis are intact. There is complete loss of the superior left hip joint space with mild sclerosis and extensive subchondral cystic change. This is similar to prior CT. Moderate right hip osteoarthritis noted. There is no acute fracture or osseous lesion within the pelvis or hips. IMPRESSION: 1. No acute fracture within the pelvis or hips. 2. Severe left hip osteoarthritis. Moderate right hip osteoarthritis. ACT 112: Negative or not required by law. Electronically signed by: Arcadio Godfrey M.D. 11/21/2019 2:53 PM XR knee LT 3V HISTORY: 54 years-old Male fall, elft knee pain acute left knee pain status post fall COMPARISON: Left knee radiographs 05/29/2019 TECHNIQUE: 3 views of the left knee FINDINGS: Severe medial and patellofemoral with moderate lateral compartment osteo arthritis. No acute fracture, dislocation or opaque foreign body identified. Mild prepatellar soft tissue swelling with small joint effusion suspected. IMPRESSION: 1. No acute fracture or dislocation. 2. Severe osteoarthritis as above. ACT 112: Negative or not required by law. The above report was generated using voice recognition software. It may contain grammatical, syntax or spelling errors. Electronically signed by: Yousuf Tavarez M.D. 11/21/2019 2:53 PM Discharge Plan Visit Data Chief Complaint: Fall Stated Complaint: CHEST AND LEG PAIN ED Provider: Jc Hale Discharge Problem: Acute renal failure, Acute dehydration, Fall, Chest wall contusion Patient Disposition: Admitted As Inpatient Forms Stand Alone Forms: My [facility] Prescriptions Prescriptions: No Action cyclobenzaprine 10 mg tablet 10 mg PO TID PRN (Reason: Muscle Spasm) Qty: 60 RF: 2 (DME) blood-glucose meter [Accu-Chek Guide Glucose Meter] misc See Rx Instructions .ROUTE .MEDSUPPLY Qty: 1 RF: 0 (DME) lancets [Accu-Chek Fastclix Lancet Drum] misc See Rx Instructions .ROUTE .MEDSUPPLY Qty: 300 RF: 1 lisinopril-hydrochlorothiazide 20-12.5 mg tablet 1 tab PO DAILY RF: 0 metformin 1,000 mg tablet 1,000 mg PO BID RF: 0 Basaglar KwikPen U-100 Insulin 100 unit/mL (3 mL) insulin pen 56 unit subcut QAM RF: 0 Referrals Referrals: Mine Maxwell CRNP [Primary Care Provider] - Discharge Problem: Acute renal failure Qualifiers: Acute renal failure type: unspecified Qualified Code(s): N17.9 - Acute kidney failure, unspecified Fall Qualifiers: Encounter type: initial encounter Qualified Code(s): W19.XXXA - Unspecified fall, initial encounter Chest wall contusion Qualifiers: Encounter type: initial encounter Laterality: unspecified laterality Qualified Code(s): S20.219A - Contusion of unspecified front wall of thorax, initial encounter The scribe's documentation has been prepared under my direction and personally reviewed by me in its entirety. I confirm that the note above accurately reflects all work, treatment, procedures, and medical decision making performed by me.
[2019-11-21] MEDS ORDERED: CYCLOBENZAPRINE HCL 10 MG TAB PO PRN (18:41)
[2019-11-21] MEDS ORDERED: CARBOHYDRATES FOR HYPOGLYCEMIA PO PRN (19:11)
[2019-11-21] MEDS ORDERED: GLUCAGON FOR INJ 1 MG VIAL SQ PRN (19:11)
[2019-11-21] MEDS ORDERED: ACETAMINOPHEN 325 MG TAB PO PRN (19:11)
[2019-11-21] MEDS ORDERED: GLUCOSE 40% GEL 15 GM TUBE PO PRN (19:11)
[2019-11-21] MEDS ORDERED: DEXTROSE 50% 50 ML SYRINGE IV PRN (19:11)
[2019-11-21] MEDS ORDERED: GLUCOSE 10 TABS/TUBE PO PRN (19:11)
[2019-11-21] MEDS ORDERED: PHARMACY GLYCEMIC MGMT CONSULT PRN (19:23)
[2019-11-21] MEDS: SODIUM CHLORIDE 0.9% 1000ML 1,000 ML IV SCH (19:30)
[2019-11-21] MEDS ORDERED: INSULIN ASPART 100 UNITS/ML 3 ML PEN SC SCH (19:45)
--- NOTE | 2019-11-21 20:00 | Pharmacy Report ---
Glycemic Control Consultation - Date of Service November 21, 2019 - Scope Scope: Glycemic Pharmacist consulted by Dr. Guerrero on 11/21/19 for glycemic control and to write orders per [facility] inpatient glycemic control protocol - Objective Weight: 106.5 kg Accuchecks BSG (last 24hrs): 11/21/19 11/21/19 15:14 19:22 Glucose 259 H POC Glucose 212 H Laboratory Data (last 24hrs): 11/21/19 15:14 Potassium 5.1 Carbon Dioxide 28 Anion Gap 7.0 Creatinine 2.84 H Est Cr Clr Drug Dosing Not Reportable - Recent Pertinent Medications Outpatient Anti-diabetic Regimen: * Metformin 1,000 mg PO BID * Basaglar 56 units SC QAM * A1c = 10.8% on 12/06/18 * A1c ordered for morning of 11/22/19 The patient is currently receiving: * Basal insulin: Lantus 56 units every 24 hours * Correctional Insulin: None * Prandial insulin: None * Pt is maintained on oral antidiabetic agents as an outpatient * Oral agents are not recommended for inpatient use d/t drug interactions, changing PO intake, and difficulty titrating for acute hyper/hypoglycemia. ADA recommends re-initiating outpatient oral agents 1-2 days prior to discharge if/when appropriate if they were held on admission. * Will hold oral agents for admission and utilize SQ basal bolus insulin regimen which is the recommended regimen for inpatient glycemic control. * Will initiate weight based insulin dosing for insulin mac patient and titrate based on BSG trends. Risk Factors for Insulin Resistance: * Infection: * Possibly recovering from viral illness over the past 48 hours * IVF: * NSS at 100 mL/hr * Diet: * T2DM - Assessment & Plan Assessment & Plan: ASSESSMENT: * 54 yo M admitted for acute on chronic pain s/p fall at home * PMHx significant for Chronic pain, T2DM, HTN, HLD * T2DM uncontrolled on outpatient basis according to most recent A1c * Patient admits to some degree of non-compliance * Received Basaglar dose (56 units) at home this AM (11/21) * Listed allergy to Novolog but appears to be "psychological reaction" secondary to high drug cost (Fiasp) * Patient appears to be dehydrated and will be gently fluid resuscitated PLAN FOR INPATIENT GLYCEMIC CONTROL: * Holding outpatient oral diabetes medications * Basal insulin * Lantus 56 units SQ QAM * Bolus insulin * NovoLog per scale ACHS or Q6hrs while NPO * Will add overnight checks tonight to trend BSG closely * Goal Range: Low 110 mg/dL - High 140 mg/dL * Correction Factor: 20 mg/dL/unit * Nutritional / Prandial insulin per carb ratio of 1 unit per 7 grams CHO consumed DISCHARGE RECOMMENDATIONS: * Pending at this time * Given renal dysfunction, may need to reassess outpatient oral antidiabetic regimen * Please note that the plan above was derived based on current level of insulin resistance and hospital stress. These recommendations are appropriate for inpatient admission only. Plan of care upon discharge will need to be reassessed to avoid potential outpatient hypo/hyperglycemia. Thank you.
--- NOTE | 2019-11-21 21:31 | Ultrasound Report ---
ULTRASOUND KIDNEYS AND BLADDER CLINICAL HISTORY: Acute on chronic renal insufficiency. COMPARISON STUDY: Abdominal CT dated 05/29/2019. TECHNIQUE: Real-time, grayscale, and color flow sonography of the kidneys and bladder is performed. I mages are reviewed in the transverse and longitudinal planes. FINDINGS: Kidneys: The kidneys are normal in size and echotexture. The right kidney measures 11.0 cm in length and the left kidney measures 11.1 cm in length. There is mild bilateral hydronephrosis. This persiste d post void. No shadowing renal calculi are identified. A 9 mm cyst is noted in the right lower pole. There is no sonographic evidence of contour deforming renal mass lesion. No perinephric fluid is dayami ntified. Bladder: The bladder is distended. The bladder wall appears thickened and trabeculated indicating chr onic outlet obstruction. The post void residual volume measures 190 cc. Bilateral ureteral jets were seen. IMPRESSION: 1. There is mild bilateral hydronephrosis which persists on the post void imaging. This may be relate d to bladder outlet obstruction. 2. The bladder is distended and there is evidence of chronic outlet obstruction. 3. Both ureteral jets were seen. 4. The post void residual measures 190 cc. ACT 112: Positive. There are findings on this exam that require communication between the performing entity and the patient following Patient Test Result Information Act ([place] Act 112) guidelines. Electronically signed by: Dmitri Farrell M.D. 11/21/2019 9:30 PM
[2019-11-21] MEDS: TRAMADOL HCL 50 MG TABLET PO PRN (21:38)
[2019-11-21] MEDS: INSULIN ASPART 100 UNITS/ML 3 ML PEN SC SCH (22:11)
[2019-11-22] MEDS: INSULIN ASPART 100 UNITS/ML 3 ML PEN SC SCH ×6 (00:25→20:33)
[2019-11-22] MEDS: SODIUM CHLORIDE 0.9% 1000ML 1,000 ML IV SCH ×3 (04:05→23:28)
[2019-11-22 07:11] LABS: Basophils # (auto) 0.02 K/uL (0-0.2); Basophils % (auto) 0.3 %; Eosinophils # (auto) 0.07 K/uL (0-0.5); Eosinophils % (auto) 1.1 %; Hematocrit (blood only) 31.5 % (42-52); Hemoglobin 9.9 g/dL (14.0-18.0); Immature Granulocytes # (auto) 0.03 K/uL (0.00-0.02); Immature Granulocytes % (auto) 0.5 %; Lymphocytes # (auto) 1.46 K/uL (1.2-3.4); Lymphocytes % (auto) 22.6 %; Mean Corpuscular Hemoglobin 27.5 pg (25-34); Mean Corpuscular Hgb Conc 31.4 g/dL (32-36); Mean Corpuscular Volume 87.5 fL (80-100); Mean Platelet Volume 9.8 fL (7.4-10.4); Monocytes # (auto) 0.39 K/uL (0.11-0.59); Neutrophils # (auto) 4.49 K/uL (1.4-6.5); Neutrophils % (auto) 69.5 %; Platelet Count 269 K/uL (130-400); RDW Coefficient of Variation 12.2 % (11.5-14.5); RDW Standard Deviation 39.5 fL (36.4-46.3); White Blood Count 6.46 K/uL (4.8-10.8)
[2019-11-22 07:22] LABS: Estimated Average Glucose 194 mg/dl; Hemoglobin A1C 8.4 % (4.5-5.6)
[2019-11-22 08:25] LABS: BUN Creatinine Ratio 35.5 (10-20); Calcium 8.4 mg/dl (8.5-10.1); Creatinine Clr Calc Pharmacy 60.1 ml/min; Est GFR (African American) 56.3; Est GFR (Non-African American) 48.6; Potassium 4.6 mmol/L (3.5-5.1)
[2019-11-22] MEDS ORDERED: INSULIN GLARGINE SOLOSTAR 100 UNITS/ML 3 ML PEN SQ SCH ×2 (09:00)
[2019-11-22] MEDS: DICLOFENAC SOD 1% GEL 100 GM TUBE EXT SCH ×4 (11:37→20:34)
--- NOTE | 2019-11-22 12:28 | Pharmacy Report ---
Pharmacy Glycemic Short Note 2 - Date of Service November 22, 2019 - Glycemic Short BSG Results (Last 24 hours): 11/21/19 11/21/19 11/22/19 15:14 19:22 00:23 Glucose 259 H POC Glucose 212 H 245 H 11/22/19 11/22/19 11/22/19 03:47 04:02 06:53 Glucose 178 H POC Glucose 56 L* 136 H 11/22/19 11/22/19 07:11 11:27 Glucose POC Glucose 162 H 108 H ASSESSMENT: * Pt had a low BSG overnight, 56mg/dL. 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 Diet continues PLAN FOR INPATIENT GLYCEMIC CONTROL: * Hold outpatient oral diabetes medications * Basal insulin * Lantus 47u daily. I lowered his home Rx by 15% to help mitigate any further lows * Bolus insulin * NovoLog per scale ACHS or Q6hrs while NPO * Goal Range: Low 110 mg/dL - High 140 mg/dL * Correction Factor: 20 mg/dL/unit * Nutritional / Prandial insulin per carb ratio of 1 unit per 7 grams CHO consumed * No further overnight checks
[2019-11-22] MEDS: TAMSULOSIN HCL 0.4 MG CAP PO SCH (13:24)
[2019-11-22] MEDS: TRAMADOL HCL 50 MG TABLET PO PRN ×2 (13:34→23:27)
--- NOTE | 2019-11-22 15:26 | Discharge Summary ---
Date of Service November 22, 2019 Admission HPI Per Admitting Provider This is a 54-year-old male with past medical history of uncontrolled insulin- dependent diabetes and severe left knee and hip osteoarthritis that presents today complaining of pain. Patient is accompanied by and son, all are good historians. Patient tells me that he recently recovered from a flulike syndrome that lasted approximately 48 hours. Patient with including significant nausea and vomiting along with decreased p.o. intake. Patient did not seek medical attention at this time but he recovered. However, he has been having ongoing weakness since this. He has been compliant with his medications. Last night he states that due to his weakness he fell down some stairs. He struck his left side but not his head. He had no loss of consciousness. He felt that his knee hip is giving out on him. The pain is been persistent which prompted him to seek medical attention today. In the ER, x-rays were essentially negative for significant trauma. However, patient was found to be in worsening renal failure when compared to old lab work. While patient admits to generalized weakness, he denies any dysuria, hematuria, urinary retention, flank pain, fever, or other symptoms. Patient did have some trouble adjusting himself in the ER stretcher secondary to this pain. He does note that he is previously narcotics was because approximately year ago as he was running out early. He has been using Celebrex at home as needed. Admission Exam Per Admitting Provider Constitutional: well nourished; no acute distress ENMT: Mouth: + dry oral mucous membranes; no lip abnormality, no oral mucosal abnormality and no tongue abnormality Neck: trachea midline, no thyromegaly Respiratory: Auscultation: lungs clear to auscultation bilaterally; no crackles, no rales and no wheezes Cardiovascular: Rate/Rhythm: regular rate and regular rhythm Heart Sounds: normal S1 and normal S2 Vessels: no JVD Gastrointestinal (Abdomen): Inspection/Auscultation: abdomen normal to inspection Percussion/Palpation: abdomen soft; abdomen nontender and no guarding Musculoskeletal: Extremities: extremities normal to inspection Skin: no rashes, warm and dry Neurologic: PERRL, EOMI, accommodation nl, no face palsy, no dysarthria Psychiatric: A+Ox3, euthymic affect Principal Diagnosis Dehydration Acute Kidney Injury Discharge Exam General: In NAD, pleasant HEENT: somewhat dry oral mucosa Neuro: A&O x 4 Pulm: CTAB equal breath sounds bilaterally CV: RRR, 2/6 systolic murmur, no r/g, R sided chest wall TTP Abdomen:+BS, no TTP in all quadrants, non-distended LE: L knee mildly edematous, no TTP, tenderness reported on flexion and extension; no pretibial edema or calf TTP Discharge Data Allergies Allergy/AdvReac Type Severity Reaction Status Date / Time insulin aspart Allergy Unknown Cramping Verified 11/21/19 19:26 [From Novolog U-100 Insulin of the aspart] Muscles Consultations 11/21/19 16:54 ED Decision to Admit Stat Ordered Studies 11/21/19 19:11 US renal/blad retro comp Routine Hospital Course (1) Acute renal failure: Acute kidney injury: Likely in the setting of recent viral syndrome (nausea/vomiting) with decreased p.o. intake, and being on medications (hydrochlorothiazide-lisinopril, Celebrex), along with a degree of chronic renal insufficiency per lab work. BUN/Cr elevated to 78/2.8 - improved to Renal ultrasound: Mild bilateral hydronephrosis persists post void concerning for chronic bladder outlet obstruction; bladder distention, postvoid residual 190 cc Received IVFs NS 100cc/hr Encouraged to stay well hydrated Diabetes mellitus: HgbA1c 8.4 improved from A1c of 10.8 on 12/06/18 Continue home Basaglar and metformin Hypertension: Patient remained normotensive in the setting of Hydralazine-Lisinopril being held for LORNA Changed Lisinopril-HCTZ 20mg-12.5mg daily to Lisinopril 20mg daily only to reduce renal impact Advised to closely monitor BP at home and follow up with PCP for medication adjustments as needed L knee and hip pain in the setting of severe osteoarthritis: Received tramadol along with Tylenol in the setting of LORNA Started on Diclofenac/voltaren gel 1% QID 6 grams apply to knee and hip Advised to take Celebrex as needed if voltaren not helping with pain Seen ortho and plan for joint replacement in the near future, but he is working on his poor dentition first Concern for BPH Report symptoms consistent with BPH Renal ultrasound: Mild bilateral hydronephrosis persists post void concerning for chronic bladder outlet obstruction; bladder distention, postvoid residual 190 cc Started on Tamsulosin 0.4mg daily Recommend outpt RITA by PCP: pt denied at this time and PSA testing (2) Acute dehydration: (3) Osteoarthritis: (4) Hypertension: (5) Uncontrolled diabetes mellitus: (6) BPH (benign prostatic hyperplasia): Discharge Plan Discharge Items Patient Disposition: Home - Self-Care Reason For Visit: LORNA Discharge Diagnosis: LORNA Dehydration L hip and Knee pain Activity: Resume your previous activity Non-emergency contact: Primary Care Provider Call non-emergency contact if: you have any medication questions, your symptoms worsen and you have a fever Follow-up/Referrals: Mine Maxwell CRNP [Primary Care Provider] - Diet: Carb Consistent or DM2 Addtl Attending Provider Instructions: Mr. Riddle you were admitted for concern of weakness and found to have dehydration and worsening kidney function likely from not being able to eat and drink in light of your recent flu-like symptoms (nausea, vomiting). You received IV fluids and felt better prior to being discharged. Please follow the instructions below after your discharge: -Stay well hydrated. Drink 8 glasses of 8oz water per day -You have been prescribed voltaren gel (diclofenac) to apply to your left knee and hip about 4grams three to four times a day to help with the pain. Diclofenac/Voltaren is a local non-steroidal anti-inflammatory drug like ce lebrex or motrin which does not hurt your kidneys as much. You can continue taking celebrex as needed -You were also precribed Tamsulosin (flomax) 0.4mg daily to help shrink your prostate and empty your bladder completely -We stopped your lisinopril-hydrochlorotiazide combination pill as it can be harder on your kidneys and prescribed you just lisinopril as a blood pressure medication. Follow up with your primary care doctor closely to adjust your blood pressure medications as needed and monitor your blood pressure at home. -Monitor your sugars regularly at least 2-3 times per day and take your home regimen -Continue your remaining home medications as prescribed -Follow up with your primary care doctor in 2-3 days to ensure you are continuing to improve Pending Studies at Discharge: No Stand-Alone Forms: [employer], Smoking Cessation Medications and DC Order Prescriptions: New tamsulosin 0.4 mg Capsule 0.4 mg PO QAM Qty: 30 RF: 1 diclofenac sodium [Voltaren] 1 % Gel 8 g EXT QID Qty: 100 RF: 2 lisinopril 20 mg tablet 20 mg PO DAILY Qty: 30 RF: 1 Continued cyclobenzaprine 10 mg tablet 10 mg PO TID PRN (Reason: Muscle Spasm) Qty: 60 RF: 2 (DME) blood-glucose meter [Accu-Chek Guide Glucose Meter] misc See Rx Instructions .ROUTE .MEDSUPPLY Qty: 1 RF: 0 (DME) lancets [Accu-Chek Fastclix Lancet Drum] misc See Rx Instructions .ROUTE .MEDSUPPLY Qty: 300 RF: 1 metformin 1,000 mg tablet 1,000 mg PO BID RF: 0 Basaglar KwikPen U-100 Insulin 100 unit/mL (3 mL) insulin pen 56 unit subcut QAM RF: 0 Discontinued lisinopril-hydrochlorothiazide 20-12.5 mg tablet 1 tab PO DAILY RF: 0 Admission Data Admit Date/Time: 11/21/19 17:57 Attending Provider: Wilbert Black Admit Provider: Moe Guerrero Primary Care Provider: Mine Maxwell Other Providers: Moe Guerrero Resident Activity Tracking Resident Involvement: Resident Care Provided Care Provided: Adult Hospital Medicine
[2019-11-22 16:39] LABS: Calcium 8.1 mg/dl (8.5-10.1); Creatinine Clr Calc Pharmacy 60.1 ml/min; Est GFR (African American) 56.3; Est GFR (Non-African American) 48.6; Potassium 4.9 mmol/L (3.5-5.1)
[2019-11-22 16:49] LABS: Beta-Hydroxybutyrate 0.89 mg/dl (0.2-2.81)
--- NOTE | 2019-11-22 17:37 | Hospitalist Progress Note ---
Date of Service November 22, 2019 Assessment & Plan (1) Acute renal failure: Acute kidney injury: Likely in the setting of recent viral syndrome (nausea/vomiting) with decreased p.o. intake, and being on medications (hydrochlorothiazide-lisinopril, Celebrex), along with a degree of chronic renal insufficiency per lab work. BUN/Cr elevated to 78/2.8 - improved to 44/1.57 Renal ultrasound: Mild bilateral hydronephrosis persists post void concerning for chronic bladder outlet obstruction; bladder distention, postvoid residual 190 cc Continue IVFs NS 100cc/hr Diabetes mellitus: HgbA1c 8.4 improved from A1c of 10.8 on 12/06/18 Continue glargine and SSI Hold home metformin in the setting of LORNA Hypertension: Patient remains normotensive in the setting of Hydralazine-Lisinopril being held for LORNA Consider changing Lisinopril-HCTZ 20mg-12.5mg daily to Lisinopril 20mg daily only to reduce renal impact on discharge L knee and hip pain in the setting of severe osteoarthritis: On tramadol along with Tylenol PRN in the setting of LORNA Started on Diclofenac/voltaren gel 1% QID 6 grams apply to knee and hip Seen ortho and plan for joint replacement in the near future, but he is working on his poor dentition first Concern for BPH Report symptoms consistent with BPH Renal ultrasound: Mild bilateral hydronephrosis persists post void concerning for chronic bladder outlet obstruction; bladder distention, postvoid residual 190 cc Started on Tamsulosin 0.4mg daily Recommend outpt RITA by PCP: pt denied at this time and PSA testing FEN/GI: DM2 diet, NS 100cc/hr DVT prop: low risk encourage ambulation, SCDs Code: Full Dispo: telemetry (2) Acute dehydration: (3) Osteoarthritis: (4) Hypertension: (5) Uncontrolled diabetes mellitus: (6) BPH (benign prostatic hyperplasia): Supervising Physician Co-Signing Physician Notes Resident Physician Supervision Note: I was present with PGY3 Dr. Al Corley during the history and exam. I discussed the case with the resident and agree with the findings and plan as documented in the note. Any exceptions or clarifications are listed here: none. During bedside rounds pt states he feels much better. Anxious to go home. No nausea/emesis. Eating/drinking fine. c/o left knee pain but no worse than baseline; denies swelling/heat/redness of left knee. Tele stable overnight. VSS afebrile gen - NAD mouth - MMM neck - no JVD heart - RRR, s1 s2 lungs - CTA b/l abd - soft NT ND BS+ no flank tenderness ext - no edema musculo - left knee - crepitus present w/ passive ROM; scant effusion; no warmth/redness skin - eczema type rash over the knees, other locations labs - Cr 1.57 A/P: 1. acute kidney injury - multifactorial - improving. Also element of obstructive uropathy likely from BPH. Agree w/ flomax. Cont gentle fluids. Hold nephrotoxic agents (LOUISE, etc). Repeat bmp am. 2. uncontrolled T2DM - adjust insulin; hold metformin due to LORNA. Pt had cinnamon bun treat in the afternoon driving BSG to 350. Consider channel cementer outsole machine consult. 3. probable BPH - start alpha eva; needs RITA. 4. recent N/V - resolved; has not recurred. 5. ?CKD - cont hydration, see where Cr settles following fluids and alpha blockade. If obstruction was playing large role in elevated creatinine the creatinine may take a little longer than average to improve. Either way BMP in am. 6. left knee OA - voltaren gel qid; ice. No signs of complicating inflammatory process (septic knee, gout, etc) of knee on physical exam. hopefully home tomorrow Documented By: Wilbert Black MD Subjective This AM pt reports having nausea/vomiting only about 4 days ago with decreased P O intake. After the viral episode he felt very weak and fell 2 days ago. He has chronic L hip and knee pain from severe osteoarthritis. He denies hitting his head or losing consciousness. He reports some R sided chest wall discomfort after the fall as well. He reports feeling better now with improved appetite and weakness also improved after receiving IVFs Review of Systems Review of Systems: Mild R sided chest wall discomfort Denies any fever, chills, sob, abdominal pain, nausea, vomiting, diarrhea, hematuria, dysuria Physical Exam Physical Exam: General: In NAD, pleasant HEENT: somewhat dry oral mucosa Neuro: A&O x 4 Pulm: CTAB equal breath sounds bilaterally CV: RRR, 2/6 systolic murmur, no r/g, R sided chest wall TTP Abdomen:+BS, no TTP in all quadrants, non-distended LE: L knee mildly edematous, no TTP, tenderness reported on flexion and extension; no pretibial edema or calf TTP Results & Data Vital Signs (Past 12 Hours) Vital Signs Temp Pulse Pulse Resp BP BP Pulse Ox 11/22/19 15:10 36.7 C 92 H 20 128/76 99 11/22/19 11:38 37 C 87 20 111/72 95 11/22/19 06:57 36.7 C 92 H 19 106/66 94 Laboratory Results Abnormal lab results 11/21/19 11/22/19 11/22/19 Range/Units 19:22 00:23 03:47 RBC (4.7-6.1) M/uL Hgb (14.0-18.0) g/dL Hct (42-52) % MCHC (32-36) g/dL Immature Gran # (Auto) (0.00-0.02) K/uL Sodium (136-145) mmol/L BUN (7-18) mg/dl Creatinine (0.6-1.4) mg/dl BUN/Creatinine Ratio (10-20) Glucose (70-99) mg/dl POC Glucose 212 H 245 H 56 L* (70-99) Hemoglobin A1c (4.5-5.6) % Calcium (8.5-10.1) mg/dl Triglycerides (0-150) mg/dl 11/22/19 11/22/19 11/22/19 Range/Units 04:02 06:53 06:53 RBC 3.60 L (4.7-6.1) M/uL Hgb 9.9 L (14.0-18.0) g/dL Hct 31.5 L (42-52) % MCHC 31.4 L (32-36) g/dL Immature Gran # (Auto) 0.03 H (0.00-0.02) K/uL Sodium 135 L (136-145) mmol/L BUN 56 H (7-18) mg/dl Creatinine 1.57 H D (0.6-1.4) mg/dl BUN/Creatinine Ratio 35.5 H (10-20) Glucose 178 H (70-99) mg/dl POC Glucose 136 H (70-99) Hemoglobin A1c (4.5-5.6) % Calcium 8.4 L (8.5-10.1) mg/dl Triglycerides 179 H (0-150) mg/dl 11/22/19 11/22/19 11/22/19 Range/Units 06:53 07:11 11:27 RBC (4.7-6.1) M/uL Hgb (14.0-18.0) g/dL Hct (42-52) % MCHC (32-36) g/dL Immature Gran # (Auto) (0.00-0.02) K/uL Sodium (136-145) mmol/L BUN (7-18) mg/dl Creatinine (0.6-1.4) mg/dl BUN/Creatinine Ratio (10-20) Glucose (70-99) mg/dl POC Glucose 162 H 108 H (70-99) Hemoglobin A1c 8.4 H (4.5-5.6) % Calcium (8.5-10.1) mg/dl Triglycerides (0-150) mg/dl 11/22/19 11/22/19 11/22/19 Range/Units 15:53 16:14 16:20 RBC (4.7-6.1) M/uL Hgb (14.0-18.0) g/dL Hct (42-52) % MCHC (32-36) g/dL Immature Gran # (Auto) (0.00-0.02) K/uL Sodium 134 L (136-145) mmol/L BUN 44 H (7-18) mg/dl Creatinine 1.57 H (0.6-1.4) mg/dl BUN/Creatinine Ratio 28.0 H (10-20) Glucose 333 H* (70-99) mg/dl POC Glucose 337 H* 350 H* (70-99) Hemoglobin A1c (4.5-5.6) % Calcium 8.1 L (8.5-10.1) mg/dl Triglycerides (0-150) mg/dl Diagnostic Findings ULTRASOUND KIDNEYS AND BLADDER CLINICAL HISTORY: Acute on chronic renal insufficiency. COMPARISON STUDY: Abdominal CT dated 05/29/2019. TECHNIQUE: Real-time, grayscale, and color flow sonography of the kidneys and bladder is performed. Images are reviewed in the transverse and longitudinal planes. FINDINGS: Kidneys: The kidneys are normal in size and echotexture. The right kidney measures 11.0 cm in length and the left kidney measures 11.1 cm in length. There is mild bilateral hydronephrosis. This persisted post void. No shadowing renal calculi are identified. A 9 mm cyst is noted in the right lower pole. There is no sonographic evidence of contour deforming renal mass lesion. No perinephric fluid is identified. Bladder: The bladder is distended. The bladder wall appears thickened and trabeculated indicating chronic outlet obstruction. The post void residual volume measures 190 cc. Bilateral ureteral jets were seen. IMPRESSION: 1. There is mild bilateral hydronephrosis which persists on the post void imagi ng. This may be related to bladder outlet obstruction. 2. The bladder is distended and there is evidence of chronic outlet obstruction. 3. Both ureteral jets were seen. 4. The post void residual measures 190 cc. XR chest 1V portable HISTORY: 54 years-old Male Fall, central chest pain acute atypical chest pain with fall COMPARISON: Chest CT 05/29/2019, chest radiographs 10/30/2013 TECHNIQUE: Portable AP view of the chest FINDINGS: Cardiac silhouette is upper limits of normal in size, likely accentuated by technique. Mild hypoinflation with right hemidiaphragmatic elevation. Minimal bibasilar opacities suggest atelectasis. No pneumothorax, large pleural effusion or overt pulmonary edema. Mild degenerative changes of the shoulders and spine. IMPRESSION: No acute process. XR hip LT 2V w pelvis CLINICAL HISTORY: fall, left hip pain COMPARISON: CT of the abdomen and pelvis May 29, 2019. Pelvis radiograph January 02, 2018. FINDINGS: Sacroiliac joints and symphysis pubis are intact. There is complete loss of the superior left hip joint space with mild sclerosis and extensive subchondral cystic change. This is similar to prior CT. Moderate right hip osteoarthritis noted. There is no acute fracture or osseous lesion within the pelvis or hips. IMPRESSION: 1. No acute fracture within the pelvis or hips. 2. Severe left hip osteoarthritis. Moderate right hip osteoarthritis. XR knee LT 3V HISTORY: 54 years-old Male fall, elft knee pain acute left knee pain status post fall COMPARISON: Left knee radiographs 05/29/2019 TECHNIQUE: 3 views of the left knee FINDINGS: Severe medial and patellofemoral with moderate lateral compartment osteoarthritis. No acute fracture, dislocation or opaque foreign body identified. Mild prepatellar soft tissue swelling with small joint effusion suspected. IMPRESSION: 1. No acute fracture or dislocation. 2. Severe osteoarthritis as above. Resident Activity Tracking Resident Involvement: Resident Care Provided Care Provided: Adult Hospital Medicine (1) Acute renal failure Acute renal failure type: unspecified Qualified Code(s): N17.9 - Acute kidney failure, unspecified
--- NOTE | 2019-11-22 20:33 | Billing Data ---
Date of Service November 22, 2019 Coding Level of Care Code 23807 Subseq Hosp Care Lvl 3
[2019-11-23 06:51] LABS: Basophils # (auto) 0.01 K/uL (0-0.2); Basophils % (auto) 0.2 %; Eosinophils # (auto) 0.06 K/uL (0-0.5); Eosinophils % (auto) 0.9 %; Hemoglobin 10.5 g/dL (14.0-18.0); Immature Granulocytes # (auto) 0.04 K/uL (0.00-0.02); Immature Granulocytes % (auto) 0.6 %; Lymphocytes # (auto) 2.04 K/uL (1.2-3.4); Lymphocytes % (auto) 31.4 %; Mean Corpuscular Hemoglobin 27.7 pg (25-34); Mean Corpuscular Hgb Conc 31.8 g/dL (32-36); Mean Corpuscular Volume 87.1 fL (80-100); Mean Platelet Volume 10.3 fL (7.4-10.4); Monocytes # (auto) 0.39 K/uL (0.11-0.59); Neutrophils # (auto) 3.96 K/uL (1.4-6.5); Neutrophils % (auto) 60.9 %; Platelet Count 280 K/uL (130-400); RDW Coefficient of Variation 12.2 % (11.5-14.5); RDW Standard Deviation 39.3 fL (36.4-46.3); Red Blood Count 3.79 M/uL (4.7-6.1)
[2019-11-23 07:11] LABS: BUN Creatinine Ratio 24.7 (10-20); Calcium 8.5 mg/dl (8.5-10.1); Creatinine Clr Calc Pharmacy 76.4 ml/min; Est GFR (African American) 75.6; Est GFR (Non-African American) 65.2; Potassium 4.4 mmol/L (3.5-5.1)
[2019-11-23] MEDS: INSULIN ASPART 100 UNITS/ML 3 ML PEN SC SCH (07:53)
[2019-11-23] MEDS: TAMSULOSIN HCL 0.4 MG CAP PO SCH (07:54)
[2019-11-23] MEDS: DICLOFENAC SOD 1% GEL 100 GM TUBE EXT SCH (07:58)
[2019-11-23] MEDS: TRAMADOL HCL 50 MG TABLET PO PRN (08:00)
--- NOTE | 2019-11-23 08:26 | Pharmacy Report ---
Glycemic Control Progress Note - Date of Service November 23, 2019 - Scope Glycemic Pharmacist consulted for glycemic control to write orders per [facility] inpatient glycemic control protocol. - Objective Accuchecks BSG(last 24 hours):: 11/22/19 11/22/19 11/22/19 06:53 11:27 15:53 Glucose 178 H 333 H* POC Glucose 108 H 11/22/19 11/22/19 11/22/19 16:14 16:20 19:51 Glucose POC Glucose 337 H* 350 H* 186 H 11/23/19 11/23/19 05:51 07:35 Glucose 87 POC Glucose 130 H HbA1c:: Hemoglobin A1c 8.4 % (4.5-5.6) H 11/22/19 06:53 - Recent Pertinent Medications The patient is currently receiving: * Basal insulin: Lantus 47 units every 24 hours * Correctional Insulin: Novolog Correction per scale ACHS Goal Range: Low 110 mg/dL - High 140 mg/dL Correction Factor: 20 mg/dL/unit * Prandial insulin: Per carb ratio of 1 unit per 7 grams CHO consumed - Outpatient Anti-Diabetic Meds metformin 1 gm PO BID + Basaglar 56 units qAM - Assessment & Plan ASSESSMENT: * See progress note from 11/22/19 for more background info, in short: * Pt receiving SQ basal bolus insulin regimen for hyperglycemia secondary to baseline DM (outpatient regimen on hold). Patient's acute kidney injury resolving * Patient is currently receiving an average of 81 units of insulin per day * 47 units of basal insulin * 34 units of prandial/correctional insulin * BSGs ranging 56 - 350 mg/dl over the past 24hrs * Changes needed to insulin regimen: * AM Fasting BSG = 130 mg/dl. This is in goal range for patient based on inpatient targets and co-morbidities. Patient's PRP glucose was 84 mg/dL. Decrease Lantus a touch to 45 units. * Post-prandial BSGs were elevated. Patient had a blood sugar > 300 mg/dL due to cinnamon bun treat. Novolog was subsequently tightened. Will loosen this for lunch a touch because not certain that patient requires that aggressive control. * Total daily dose = 80-90 units. * Additional notes / comments: continue to hold metformin in light of kidney function PLAN FOR INPATIENT GLYCEMIC CONTROL: * Decreasing Lantus to 45 units SQ daily * LOOSENING correction factor to 20 mg/dl/unit * LOOSENING carb ratio to 1 unit per 6 grams CHO consumed * Continuing goal range of Low 110 mg/dL - High 140 mg/dL RECOMMENDATIONS FOR DISCHARGE: * Patient's HbA1C is much more controlled than in November. Recommend continuing to work with outpatient provider. * To obtain goal closer to 8% and reduce basal heavy load of Basaglar would consider one of the following: * Novolog with largest meal of the day (could consider starting with 5 units and titrating upwards) * once weekly Ozempic could be considered since patient has h/o hypertension * Please note that the plan above was derived based on current level of insulin resistance and hospital stress. These recommendations are appropriate for inpatient admission only. Plan of care upon discharge will need to be reassessed to avoid potential outpatient hypo/hyperglycemia. Thank you.
[2019-11-23] MEDS ORDERED: INSULIN GLARGINE SOLOSTAR 100 UNITS/ML 3 ML PEN SQ SCH (09:00)
[2019-11-23] MEDS: SODIUM CHLORIDE 0.9% 1000ML 1,000 ML IV SCH (09:10)
--- NOTE | 2019-11-23 09:14 | Discharge Summary ---
Date of Service November 23, 2019 Admission HPI Per Admitting Provider This is a 54-year-old male with past medical history of uncontrolled insulin- dependent diabetes and severe left knee and hip osteoarthritis that presents today complaining of pain. Patient is accompanied by and son, all are good historians. Patient tells me that he recently recovered from a flulike syndrome that lasted approximately 48 hours. Patient with including significant nausea and vomiting along with decreased p.o. intake. Patient did not seek medical attention at this time but he recovered. However, he has been having ongoing weakness since this. He has been compliant with his medications. Last night he states that due to his weakness he fell down some stairs. He struck his left side but not his head. He had no loss of consciousness. He felt that his knee hip is giving out on him. The pain is been persistent which prompted him to seek medical attention today. In the ER, x-rays were essentially negative for significant trauma. However, patient was found to be in worsening renal failure when compared to old lab work. While patient admits to generalized weakness, he denies any dysuria, hematuria, urinary retention, flank pain, fever, or other symptoms. Patient did have some trouble adjusting himself in the ER stretcher secondary to this pain. He does note that he is previously narcotics was because approximately year ago as he was running out early. He has been using Celebrex at home as needed. Admission Exam Per Admitting Provider Constitutional: well nourished; no acute distress ENMT: Mouth: + dry oral mucous membranes; no lip abnormality, no oral mucosal abnormality and no tongue abnormality Neck: trachea midline, no thyromegaly Respiratory: Auscultation: lungs clear to auscultation bilaterally; no crackles, no rales and no wheezes Cardiovascular: Rate/Rhythm: regular rate and regular rhythm Heart Sounds: normal S1 and normal S2 Vessels: no JVD Gastrointestinal (Abdomen): Inspection/Auscultation: abdomen normal to inspection Percussion/Palpation: abdomen soft; abdomen nontender and no guarding Musculoskeletal: Extremities: extremities normal to inspection Skin: no rashes, warm and dry Neurologic: PERRL, EOMI, accommodation nl, no face palsy, no dysarthria Psychiatric: A+Ox3, euthymic affect Principal Diagnosis LORNA Dehydration Discharge Exam General: In NAD, pleasant HEENT: moist oral mucosa Neuro: A&O x 4 Pulm: CTAB equal breath sounds bilaterally CV: RRR, 2/6 systolic murmur, no r/g Abdomen:+BS, no TTP in all quadrants, non-distended LE: L knee mildly edematous, no pretibial edema or calf TTP Discharge Data Allergies Allergy/AdvReac Type Severity Reaction Status Date / Time insulin aspart Allergy Unknown Cramping Verified 11/21/19 19:26 [From Novolog U-100 Insulin of the aspart] Muscles Consultations 11/21/19 16:54 ED Decision to Admit Stat Ordered Studies 11/21/19 19:11 US renal/blad retro comp Routine Hospital Course (1) Acute renal failure: Acute kidney injury: Likely in the setting of recent viral syndrome (nausea/vomiting) with decreased p.o. intake, and being on medications (hydrochlorothiazide-lisinopril, Celebrex), along with a degree of chronic renal insufficiency per lab work. BUN/Cr elevated to 78/2.8 - improved to 30/1.23 Renal ultrasound: Mild bilateral hydronephrosis persists post void concerning for chronic bladder outlet obstruction; bladder distention, postvoid residual 190 cc Received IVFs Advised to stay well hydrated and drink at least 2L daily Diabetes mellitus: HgbA1c 8.4 improved from A1c of 10.8 on 12/06/18 Continue home glargine and metformin Hypertension: Patient remained normotensive in the setting of Hydralazine-Lisinopril being held for LORNA Changed Lisinopril-HCTZ 20mg-12.5mg daily to Lisinopril 20mg daily only to reduce renal impact Advised to obtain BP cuff and check BP twice daily. [place] to have BP 130/80 or less however advised to see PCP if BP 140/90 or higher for changes in medication regimen L knee and hip pain in the setting of severe osteoarthritis: Received tramadol along with Tylenol PRN in the setting of LORNA Started on Diclofenac/voltaren gel 1% QID 6 grams apply to knee and hip Seen ortho and plan for joint replacement in the near future, but he is working on his poor dentition first Concern for BPH Reported symptoms consistent with BPH Renal ultrasound: Mild bilateral hydronephrosis persists post void concerning for chronic bladder outlet obstruction; bladder distention, postvoid residual 190 cc Started on Tamsulosin 0.4mg daily Recommend outpt RITA by PCP: pt denied at this time and PSA testing Code: Full (2) Acute dehydration: (3) Osteoarthritis: (4) Hypertension: (5) Uncontrolled diabetes mellitus: (6) BPH (benign prostatic hyperplasia): Total Time Total Time Spent Total Time Spent (In Minutes): <30 Discharge Plan Discharge Items Patient Disposition: Home - Self-Care Reason For Visit: LORNA Discharge Diagnosis: LORNA Dehydration L hip and Knee pain Activity: Resume your previous activity Non-emergency contact: Primary Care Provider Call non-emergency contact if: you have any medication questions, your symptoms worsen and you have a fever Follow-up/Referrals: Mine Maxwell CRNP [Primary Care Provider] - 11/30/19 10:30 am (Please, follow up at [facility] with Mine HURD on November 30 at 10:30 am. *If you need to change this appointment, call the office at [phone].) Diet: Carb Consistent or DM2 Addtl Attending Provider Instructions: Mr. Riddle you were admitted for concern of weakness and found to have dehydration and worsening kidney function likely from not being able to eat and drink in light of your recent flu-like symptoms (nausea, vomiting). You received IV fluids and felt better prior to being discharged. Please follow the instructions below after your discharge: -Stay well hydrated. Drink at least 2L of water per day (you can take 500cc water glass given to you in the hospital and drink 4 of them a day). You should drink more if you have a caffeinated beverage like coffee, tea or soda -You have been prescribed voltaren gel (diclofenac) to apply to your left knee and hip about 4grams three to four times a day to help with the pain. Diclofenac/Voltaren is a local non-steroidal anti-inflammatory drug like celebrex or motrin which does not hurt your kidneys as much. You can continue taking celebrex as needed -You were also precribed Tamsulosin (flomax) 0.4mg daily to help shrink your prostate and empty your bladder completely -We stopped your lisinopril-hydrochlorotiazide combination pill as it can be harder on your kidneys and prescribed you just lisinopril 20mg daily as a blood pressure medication. Follow up with your primary care doctor closely to adjust your blood pressure medications as needed and monitor your blood pressure at home. Ideally we want your blood pressure to be 130/80 or less however if at any point you note your blood pressure to be greater than 140/90 please call your doctor to adjust your blood pressure regimen -Monitor your sugars regularly at least 2-3 times per day and take your home regimen -Continue your remaining home medications as prescribed -Follow up with your primary care doctor in 2-3 days to ensure you are continuing to improve. Our nurse navigator will help make an appointment for you -Please follow up with urology regarding your prostate enlargement. Our nurse navigator will help make an appointment for you and get back to you Pending Studies at Discharge: No Stand-Alone Forms: My [facility], Smoking Cessation Medications and DC Order Prescriptions: New tamsulosin 0.4 mg Capsule 0.4 mg PO QAM Qty: 30 RF: 1 diclofenac sodium [Voltaren] 1 % Gel 8 g EXT QID Qty: 100 RF: 2 lisinopril 20 mg tablet 20 mg PO DAILY Qty: 30 RF: 1 Continued cyclobenzaprine 10 mg tablet 10 mg PO TID PRN (Reason: Muscle Spasm) Qty: 60 RF: 2 (DME) blood-glucose meter [Accu-Chek Guide Glucose Meter] misc See Rx Instructions .ROUTE .MEDSUPPLY Qty: 1 RF: 0 (DME) lancets [Accu-Chek Fastclix Lancet Drum] misc See Rx Instructions .ROUTE .MEDSUPPLY Qty: 300 RF: 1 metformin 1,000 mg tablet 1,000 mg PO BID RF: 0 Basaglar KwikPen U-100 Insulin 100 unit/mL (3 mL) insulin pen 56 unit subcut QAM RF: 0 Discontinued lisinopril-hydrochlorothiazide 20-12.5 mg tablet 1 tab PO DAILY RF: 0 Discharge Orders: Discharge Order (Routine); Ordered 11/23/19 Ordered By: Al Corley Admission Data Admit Date/Time: 11/21/19 17:57 Attending Provider: Blake Augustine Admit Provider: Moe Guerrero Primary Care Provider: Mine Maxwell Other Providers: Moe Guerrero ; Wilbert Black Other Interventions: Discharge Summary Assessment (RN) Last Done: 11/23/19 09:45 DC Date/Time DO NOT enter until pt leaves facility: 11/23/19 11:30 Supervising Physician Co-Signing Physician Notes Resident Physician Supervision Note: I personally examined the patient and verified all gordon points of history and exam, discussed case, and agree with decision making with Dr Corley. feeling good. wants to go home. no new complaints. updated on changes in meds - pt expressed good understanding. discussed follow up plans. no questions. vitals noted nad heent nc at mmm breathing unlabored no accessory muscles good effort skin no rashes no pallor or icterus. A/P: 1. acute kidney injury - multifactorial (but acutely heavily prerenal w chronic obstructive component present at baseline) - improving. Started flomax. Anticipate proscar or avodart in near future. reasonable to establish with urology. stable for home - resume ACEi but not thiazide. BMP ~1wk -avoid NSAIDs outside of topicals - d/w pt 2. uncontrolled T2DM - better than he's been most A1c's previously but still not to goal. Safe for home, PCP f/u 3. probable BPH - start alpha eva; outpt f/u. 4. recent N/V - resolved; has not recurred. 5. ?CKD - see above, follow BMP as outpt. 6. left knee OA - voltaren gel qid; tylenol prn. stop NSAIDs safe for home Resident Activity Tracking Resident Involvement: Resident Care Provided Care Provided: Adult Hospital Medicine
--- NOTE | 2019-11-23 16:07 | Billing Data ---
Date of Service November 23, 2019 Coding Level of Care Code D/C Day Management <30 mins
== END 2019-11-23 11:30 | disposition home or self-care (01) | DRG 684 ==
LOC: ED 14:00 → 2S 17:57 → SUATTDRO 17:57 → 2S 18:25

== ENCOUNTER 2021-03-04 08:33 | Observation (INO) ==
--- NOTE | 2021-02-18 09:51 | Anesthesiology Consultation ---
Date of Service February 18, 2021 Assessment & Plan (1) Encounter for pre-operative examination: Chart Review Chart Review: Pending: Refer to Additional Notes / Consult section (pending response from PCP, DOS CXR and preop Covid testing results ) and Patient NOT seen in Pre Admission Testing -Will order CXR for DOS due to previous CXR showing possible pneumonitis. -Note also sent to PCP re: pt's decreased in kidney function- will await response. - Check BSG AM DOS Per nursing assessment 02/11/2021, patient resides in [facility]. Denies recent travel. Uses PPE. No known Covid infection in the past 90 days. No known Covid positive contacts or Covid related symptoms. Preop Covid testing scheduled 02/25/21 at [facility]= will await results. Last seen by diabetes clinic 01/23/2021 = initially diagnosed with type 2 diabetes in 2009. In 2013 patient had weight loss and A1c greater than 16% with blood glucose near 900hospitalized and now calling type 1 diabetes but can see DKA anteriorly controlled type II. Diabetes clinic aware of upcoming surgery in February1A1c 7.4 on 01/06/2021 which is dramatic improvement. "Ultimately your overall fitness for surgery is up to her surgeon and the extended care team." Recommend keeping preprandial blood sugars <140 and postprandial blood sugars <180 to reduce the risk of postsurgical complications. Patient currently applying for sherman to ease burden. Kidney function stable. BP well controlled. History Surgery Operation Date: 03/03/21 09:10 Proposed Procedures p Left Anterior Total Hip Arthroplasty - Kar Fagan DO Height/Weight Height: 5 ft 7 in Weight: 108.862 kg Allergies Allergy/AdvReac Type Severity Reaction Status Date / Time No Known Drug Allergies Allergy Verified 02/11/21 11:53 Medications Home Medications Medication Instructions Recorded Confirmed Last Taken diclofenac sodium [Voltaren] 8 g EXT QID #100 gm 11/22/19 02/11/21 Unknown metformin 1,000 mg tablet 1,000 mg PO BID #60 tab 01/30/20 02/11/21 Unknown insulin glargine 100 unit/mL (3 65 unit SUBCUT QAM #20 ml 09/17/20 02/11/21 Unknown mL) subcutaneous pen naproxen 500 mg tablet 500 mg PO BID #60 tab 09/17/20 02/11/21 Unknown Accu-Chek Guide test strips #300 ea NS 10/31/20 01/23/21 Unknown lancets #300 ea 10/31/20 01/23/21 Unknown blood-glucose meter ea 01/06/21 01/23/21 Unknown tamsulosin 0.4 mg capsule 0.4 mg PO QAM cap 01/06/21 02/11/21 Unknown atorvastatin 20 mg PO QAM 02/11/21 02/11/21 Unknown cyclobenzaprine 10 mg PO TID PRN 02/11/21 02/11/21 Unknown insulin aspart U-100 [Novolog 10 - 15 units SQ TID 02/11/21 02/11/21 Unknown Flexpen U-100 Insulin] lisinopril 20 mg PO QAM 02/11/21 02/11/21 Unknown Past Medical History Medical History Chronic back pain Chronic hip pain Chronic knee pain Diabetes mellitus Hx of peripheral neuropathy Hx of proteinuria syndrome Hyperlipidemia Hypertension Osteoarthritis Polysubstance abuse heroin and cocaine abuse - been clean for over a year Past Family History Family History Brother Bipolar disorder Depression Diabetes Hypertension Father Diabetes Hypertension Kidney disease Myocardial infarction Denies family history of Ovarian cancer Prostate cancer Breast cancer Past Surgical History Surgical History History of surgical removal of meniscus of knee right and left Hx of repair of rotator cuff Social History Smoking Status: Current every day smoker tobacco type: cigarettes Smoking cigarettes per day: 1ppd Do You Dip or Chew Tobacco: No Hx Alcohol Use: No Hx Substance Use: Yes substance use type: crack/cocaine and heroin Last Used Substance Other:: been clean for over a year Testing Laboratory Results Laboratory Tests 02/13/21 02/13/21 02/13/21 12:43 12:43 12:43 WBC 7.01 Hgb 13.3 L Hct 41.5 L Plt Count 284 PT 9.8 INR 1.0 APTT 27.3 Sodium 134 L Potassium 4.5 Chloride 101 Carbon Dioxide 25 BUN 33 H Creatinine 1.67 H Glucose 275 H Hemoglobin A1c 02/13/21 12:43 WBC Hgb Hct Plt Count PT INR APTT Sodium Potassium Chloride Carbon Dioxide BUN Creatinine Glucose Hemoglobin A1c 6.4 H Surgeons office informed of glucose 02/13/2021 = UA: 1+ urine protein, 2+ urine glucose Electrocardiogram Date: 11/20/20 Findings: + NSR @ (70 bpm) Left axis deviation. Possible old anterior infarct (cited on or before November 21, 2019). Minor chronic ST elevation in lateral leads. When compared to EKG from November 21, 2019no significant change was found per cardio. Chest X-Ray Date: 11/20/20 Findings: + cardiomegaly (Mild) Mild bibasilar opacities suggest probable atelectasis. A subtle pneumonitis could appear similarly.
--- NOTE | 2021-03-01 09:53 | History & Physical Report ---
Date of Service March 04, 2021 Assessment & Plan (1) Degenerative joint disease of left hip: I have indicated the patient for left anterior total hip replacement. The risks, benefits and complications of surgery were explained to the patient which include but not limited to infection, acute blood loss, DVT/PE, injury to nerves, vessels, bone, soft tissue, arthrofibrosis, chronic pain, failure of the prosthesis, hip dislocation, leg length discrepancy, need for additional surgery, cardiac and pulmonary events and . The patient wished to proceed with surgery and informed consent was obtained at this time. We will plan for 81mg ASA BID post-operatively for DVT prophylaxis. Upon discharge the patient will be discharged home with home health services. Appropriate clearances by PCP were obtained. History of Present Illness Chief Complaint: Left hip pain/DJD Primary Care Provider: Topher Simmons DO The patient is a 55 year old male who presents with complaints of severe left hip pain and DJD. The patient has failed outpatient conservative treatments to this point which included NSAIDs, IA corticosteroid injection, HEP. The patient's pain and limited function have progressed to the point where they severely hinder their activities of daily living and they no longer tolerate exercise programs. They are requesting to proceed with total hip replacement surgery. Allergies Allergy/AdvReac Type Severity Reaction Status Date / Time No Known Drug Allergies Allergy Verified 02/26/21 12:16 Home Medications Medication Instructions Recorded Confirmed Type naproxen 500 mg tablet 500 mg PO BID #60 tab 09/17/20 02/26/21 Rx lancets #300 ea 10/31/20 02/26/21 Rx tamsulosin 0.4 mg capsule 0.4 mg PO QAM cap 01/06/21 02/26/21 History cyclobenzaprine 10 mg PO TID PRN 02/11/21 02/26/21 History blood-glucose meter #1 ea 02/24/21 02/26/21 Rx Accu-Chek Guide test strips #300 ea NS 02/26/21 02/26/21 Rx atorvastatin 20 mg tablet 20 mg PO QAM #90 tab 02/26/21 02/26/21 Rx diclofenac sodium 1 % topical gel 8 g EXT QID #100 gm 02/26/21 02/26/21 Rx insulin aspart U-100 100 unit/mL 10 - 15 unit SQ TID #15 ml 02/26/21 02/26/21 Rx (3 mL) subcutaneous pen insulin glargine 100 unit/mL (3 65 unit SUBCUT QAM #20 ml 02/26/21 02/26/21 Rx mL) subcutaneous pen lisinopril 20 mg tablet 20 mg PO QAM #90 tab 02/26/21 02/26/21 Rx tadalafil 10 mg tablet 10 mg PO DAILY PRN #30 tab 02/26/21 02/26/21 Rx Past Med/Surg History Medical History Chronic back pain Chronic hip pain Chronic knee pain Diabetes mellitus Hx of peripheral neuropathy Hx of proteinuria syndrome Hyperlipidemia Hypertension Osteoarthritis Polysubstance abuse heroin and cocaine abuse - been clean for over a year Surgical History History of surgical removal of meniscus of knee right and left Hx of repair of rotator cuff Family History Brother Bipolar disorder Depression Diabetes Hypertension Father Diabetes Hypertension Kidney disease Myocardial infarction Denies family history of Ovarian cancer Prostate cancer Breast cancer Social History Smoking Status: Current every day smoker Tobacco Type: Cigarettes Cigarettes Per Day: 1ppd; Second Hand Exposure: No; Do You Dip or Chew Tobacco: No; Tobacco Cessation Education Requested by Patient: No Hx Alcohol Use: No Hx Substance Use: Yes Last Used Substance Other:: been clean for over a year Preferred Language: Bruneian Communication Ability: Effective Network Support Technician Required: No Beliefs That Will Affect Care: None marital status: Current Living Situation: Spouse current occupational status: unemployed Other Information That Helps Us Care for You: No Feels Safe at Home: Yes Safety Concerns: Feels Safe At This Time Childhood Exposure to Second-Hand Smoke: No caffeine: Yes Dental Care, Regularly: No Physical Activity Frequency: Does not Exercise Physical Activity Frequency Comment: Exercise limited by physical condition. Seatbelt Use: sometimes Sunscreen Use: No Assistive Devices: Denture - Upper Review of Systems Review of Systems: All systems reviewed & are unremarkable except as noted in HPI & below Constitutional: as per Subjective / HPI Physical Exam Physical Exam: LLE NVSI +EHL/FHL/TA/GS SILT grossly, +2 DP pulse, compartments soft NT, limited painful ROM of the hip, antalgic gait. Constitutional: WD/WN, vitals as above Eyes: PERRL, conjunctivae normal, anicteric sclerae ENMT: external ear and nose normal, oropharynx normal Neck: trachea midline, no thyromegaly Respiratory: normal respiratory effort, lungs clear to auscultation Cardiovascular: RRR, no murmur, no edema Gastrointestinal (Abdomen): normal bowel sounds, soft, nontender, no hepatosplenomegaly Musculoskeletal: no cyanosis or clubbing, extremities motor strength 5/5 Skin: no rashes, warm and dry Neurologic: patellar DTR's 2+ bilat, sensation intact Psychiatric: A+Ox3, euthymic affect Lymphatic: no cervical or axillary lymphadenopathy Results & Data Results & Data ([facility]) Diagnostic Findings Multiple views of the hip demonstrates severe DJD with complete loss of the joint space. +osteophytes, +sclerosis, +subchondral cysts.
[~2021-03-04 08:33] MED LIST changes: +ACETAMINOPHEN 500 MG TAB PO SCH; +BUPIVACAINE 0.5 % 5 MG/1 ML PF 10ML VIAL ONE; +CeleBREX 200 MG CAP PO SCH; +FAMOTIDINE 20 MG TAB PO SCH; +GABAPENTIN 600 MG DOSE PO SCH; -INSDGIPEN SQ; -LISI-787 PO; +LR 500ML BOLUS, THEN 15ML/HR IV SCH; -METF-384 PO; +METOCLOPRAMIDE HCL 10 MG TABLET PO SCH; -NVLGI/PEN SQ; +ROPIVACAINE 0.5% HCL/PF 150 MG, BUPIVACAINE 0.75% MPF 20 ML, EPINEPHrine 30MG/30ML (OR ... INSTIL SCH; -SIMV20TA2 PO; +TRANEXAMIC ACID 1,000 MG **IV Intra-op IV SCH; +TRANEXAMIC ACID 1,000 MG **IV Pre-op IV SCH; +ceFAZolin 2000MG 2,000 MG/15 ML SYR IV SCH; +dexAMETHasone 4 MG TAB PO SCH
[2021-03-04] MEDS ORDERED: KETAMINE 50 MG/5 ML SYRINGE ONE ×2 (08:47→13:33)
[2021-03-04] MEDS ORDERED: MIDAZOLAM HCL 1 MG/ML 2ML VIAL ONE ×3 (08:47→13:33)
--- NOTE | 2021-03-04 09:00 | History & Physical Bridge Note ---
Date of Service March 04, 2021 History & Physical Bridge Note I have examined the patient, reviewed the History & Physical and in the interval since the performance of the History & Physical I have noted the following changes of clinical significance: no changes noted
--- NOTE | 2021-03-04 09:23 | XRay Report ---
TWO VIEW CHEST CLINICAL HISTORY: Preoperative examination. Hip arthroplasty.. FINDINGS: PA and lateral chest radiographs are compared to study dated 11/20/2020. The cardiomediasti nal silhouette is unremarkable. Linear atelectasis is present at the left lung base. No airspace cons olidation or pleural effusion is identified. There is no pneumothorax. The bony thorax appears intact . IMPRESSION: No active disease in the chest. ACT 112: Negative or not required by law. Electronically signed by: Dmitri Farrell M.D. 03/04/2021 9:22 AM
[2021-03-04] MEDS ORDERED: PROPOFOL IV EMULSION 10 MG/ML 20 ML VIAL IV ONE (13:32)
[2021-03-04] MEDS ORDERED: LIDOCAINE HCL 2% 2 ML VIAL/AMP(20MG/ML) INFIL ONE (13:32)
[2021-03-04] MEDS ORDERED: fentaNYL citrate 100 MCG/2 ML VIAL IV PRN (14:25)
[2021-03-04] MEDS ORDERED: ePHEDrine sulfate 50 MG/ML AMP IV PRN (14:25)
[2021-03-04] MEDS ORDERED: ONDANSETRON INJ 2 MG/ML 2 ML VIAL IV PRN ×2 (14:25→19:47)
[2021-03-04] MEDS ORDERED: ATROPINE SULFATE 0.1 MG/ML 10ML SYR IV PRN (14:25)
[2021-03-04] MEDS ORDERED: BACITRACIN INJ 50,000 UNIT VIAL ONE (14:37)
[2021-03-04] MEDS ORDERED: ORTHO JOINT ANESTHETIC ONE (14:37)
[2021-03-04] MEDS ORDERED: ePHEDrine sulfate 50 MG/ML AMP ONE (15:21)
[2021-03-04] MEDS ORDERED: PHENYLEPHRINE HCL 10 MG/ML VIAL ONE (15:56)
--- NOTE | 2021-03-04 16:54 | Post Operative Brief Note ---
Immediate Post Op Note v1 Date of Surgery March 04, 2021 Pre & Post Diagnosis Operation Date: 03/04/21 11:00 Pre-Op Diagnosis: Osteoarthritis left Hip Post-Op Diagnosis: Osteoarthritis left Hip I identified the patient and participated in the time-out.: Yes Procedure Operation Date: 03/04/21 11:00 Actual Procedures p Left Anterior Total Hip Arthroplasty(Left) - Kar Fagan DO Surgeon Kar Fagan DO Farm Service Consultant Michel Shah Estimated Blood Loss 250 Findings Consistent with Post-Op Diagnosis Fluids See anesthesia report Specimens Femoral head Drains Hemovac Drain Anesthesia Type Spinal MAC Complications none Disposition Disposition: Recovery Room Overlapping Procedure I was present for: the critical portions of procedure. I was immediately available: during the entire case. Back up surgeon: was not required during procedure.
--- NOTE | 2021-03-04 16:55 | Operative Report ---
Post Operative Report Pre & Post Diagnosis Operation Date: 03/04/21 11:00 Pre-Op Diagnosis: Osteoarthritis left Hip Post-Op Diagnosis: Osteoarthritis left Hip I identified the patient and participated in the time-out.: Yes Procedure Operation Date: 03/04/21 11:00 Actual Procedures p Left Anterior Total Hip Arthroplasty(Left) - Kar Fagan DO Surgeon Kar Fagan DO Sales Negotiator Michel Shah Estimated Blood Loss 250 Findings Consistent with Post-Op Diagnosis Fluids See anesthesia report Specimens Femoral head Anesthesia Type Spinal MAC Complications none Disposition Disposition: Recovery Room Indications The patient is a 48-year-old male who presents with severe progressive low hip DJD who has failed outpatient conservative treatments. I indicated the patient for a anterior total hip replacement and the risks and benefits were explained in detail which include but not limited to infection, bleeding, blood clot, damage to surrounding bone, nerves, vessels, soft tissue, hip dislocation, failure of the prosthesis, leg length discrepancy, need for additional surgery and . The patient agreed to proceed with replacement of the hip and informed consent was obtained. Appropriate clearances were obtained. Description of Procedure COMPONENTS USED: [employer] hip system: Acetabulum size 54, femur size 5 AFIT high offset, femoral head 36+0, liner 54x36, acetabular screw 25 mm x 1. DESCRIPTION OF PROCEDURE: Following satisfactory spinal anesthesia, the patient was placed supine on the OR table. The right leg was placed in the well leg nava and the left leg in the traction device. The left leg was prepared with ChloraPrep and draped sterilely. A surgical timeout was performed, patient identified and site doug verified. Appropriate antibiotics were given. A standard anterior approach in the interval between the sartorius and tensor muscles was performed. Dissection was carried down through subcutaneous tissues. Electrocautery was utilized for hemostasis. Circumflex femoral vessels were identified, tied and ligated. The anterior capsular fat pad was removed and the capsulotomy was performed revealing the arthritic femoral neck and head. A femoral neck cut was made with reciprocating saw and the bone fragments removed. The acetabular self-retraining retractor was placed. Acetabular reaming was completed under fluoroscopic guidance, a 54 shell was impacted into an anatomic position and secured with a acetabular screw. Local anesthetic was placed and following irrigation, the polyethylene liner was placed. The femur was placed into position of external rotation, extension and adduction. Femoral canal was prepared up to the size 5 high offset. Trial reduction with a 36+0 neck length head showed good soft tissue tension, leg lengths restored, and good fit and fill of the proximal canal using fluoroscopic landmarks. The hip was dislocated. The trial component was removed. The final implant was placed. The hip was irrigated with sterile saline solution and reduced. A Betadine soak was performed. After 3 minutes, the hip was once more irrigated with copious sterile saline solution with bacitracin. Claudia-incisional soft tissue was injected utilizing [place] [employer] which includes a combination of Ropivicaine 0.5% 150mg, Bupivicaine 0.5%/Epinephrine 1:200,000 30ml, Toradol 30mg, Dexamethasone 4mg, Ketamine 10mg, Clonidine 100mcg and NSS 30ml solution. The capsule was then closed with 1-0 Vicryl interrupted figure of eight sutures. The fascia was closed with a running suture of #1 Vicryl, Hemovac drain placed superficial to fascia, the subcutaneous tissues with 2-0 Vicryl and the skin was closed with yudelka. A sterile dry dressing was applied which included brice incisional VAC, drain sponge and tape. The patient tolerated the procedure well and was transported to PACU in stable condition. Due to the complex nature of the procedure, the entire surgery was performed with the operational assistance of Michel Shah PA-C. The porcelain buildup assistant, under direct supervision, was involved in the actual performance of all aspects of the surgical procedure including patient positioning, hemostasis, tissue retraction, instrument management and wound closure. I attest to the content of the Intraoperative Record and any orders documented therein. Any exceptions are noted below.
--- NOTE | 2021-03-04 17:03 | Fluoroscopy Report ---
FL hip LT 1V HISTORY: 55 years-old Male LT ANTERIOR TOTAL left hip total joint arthroplasty. Chronic left hip niurka n COMPARISON: Pelvis and left hip radiographs 11/21/2019 TECHNIQUE: 5 spot fluoroscopic images of the left hip were obtained utilizing 47.1 seconds fluoroscop y time FINDINGS: Left hip total joint arthroplasty demonstrates satisfactory alignment. No acute fracture or unexpecte d opaque foreign body. Expected postsurgical soft tissue swelling and deep tissue air. IMPRESSION: Fluoroscopic assistance as above. ACT 112: Negative or not required by law. The above report was generated using voice recognition software. It may contain grammatical, syntax o r spelling errors. Electronically signed by: Yousuf Tavarez M.D. 03/04/2021 5:01 PM
--- NOTE | 2021-03-04 17:24 | Anesthesiology Progress Note ---
Date of Service March 04, 2021 Anesthesia Post Procedure Vital Signs Vital Signs: Temp Pulse Resp BP Pulse Ox 03/04/21 14:05 102 H 20 163/100 H 93 03/04/21 08:50 36.7 C 102 H 20 173/111 H 98 Pain Intensity Left Hip: Pain Intensity: 5 Transfer of Care Handoff Completed per policy Notes Mental Status: alert / awake / arousable and participated in evaluation Patient Amnestic to Procedure: Yes Nausea / Vomiting: adequately controlled Pain: adequately controlled Airway Patency, RR, SpO2: stable & adequate BP & HR: stable & adequate Hydration State: stable & adequate Neuraxial Anesthesia: was administered and sensory block is resolving Anesthetic Complications: no major complications apparent and Pt Satisfied with anesthetic care
--- NOTE | 2021-03-04 17:44 | Orthopedic Progress Note ---
Date of Service March 04, 2021 Assessment & Plan (1) Degenerative joint disease of left hip: Status post left anterior total hip arthroplasty -Ancef x24 -DVT prophylaxis: SCDs, teds, 81 mg ASA twice daily -Weight-bear as tolerates left lower extremity -PT/OT -Postoperative x-ray demonstrates a well aligned well fixed prosthesis without fracture or dislocation -A.m. labs -DC planning Subjective Post Operative Progress Note Patient seen in PACU, comfortable, denies complaints, pain well controlled, no acute issues. Still feeling effects of spinal anesthesia. Review of Systems Review of Systems: All systems reviewed & are unremarkable except as noted in HPI & below Constitutional: as per Subjective / HPI Physical Exam Physical Exam: Limited physical exam secondary to spinal anesthesia, +2 dorsalis pedis pulse, compartment soft nontender, dressing clean dry and intact, Hemovac drain in place. Constitutional: WD/WN, vitals as above Results & Data ([facility]) Vital Signs (Past 12 Hours) Vital Signs Temp Pulse Pulse Resp BP BP Pulse Ox 03/04/21 17:30 98 H 18 121/88 96 03/04/21 17:20 91 H 20 125/83 95 03/04/21 17:13 36.2 C L 97 H 16 118/77 95 03/04/21 14:05 102 H 20 163/100 H 93 03/04/21 08:50 36.7 C 102 H 20 173/111 H 98
--- NOTE | 2021-03-04 17:46 | XRay Report ---
XR hip 1V LT w pelvis HISTORY: 55 years-old Male IN PACU - A/P PELVIS and LATERAL HIP left hip total joint arthroplasty COMPARISON: Pelvis and left hip radiographs 11/21/2019 TECHNIQUE: Portable AP view of the pelvis with crosstable lateral view of the left hip FINDINGS: Left hip total joint arthroplasty. Satisfactory alignment without acute fracture or retained foreign body. Lateral skin yudelka are noted along with surgical drainage catheter and expected postoperative soft tissue swelling with deep tissue air. Moderate right hip osteoarthritis. IMPRESSION: Left hip total joint arthroplasty with expected postoperative changes. ACT 112: Negative or not required by law. The above report was generated using voice recognition software. It may contain grammatical, syntax o r spelling errors. Electronically signed by: Yousuf Tavarez M.D. 03/04/2021 5:45 PM
[2021-03-04] MEDS ORDERED: ceFAZolin 2000MG 2,000 MG/15 ML SYR IV SCH (19:47)
[2021-03-04] MEDS ORDERED: HYDROmorphone INJ 0.5 MG/0.5 ML SYR IV PRN (19:47)
[2021-03-04] MEDS ORDERED: NALOXONE HCL 0.4 MG/1 ML VIAL/CARP IV PRN (19:47)
[2021-03-04] MEDS ORDERED: bisacodyL 10 MG SUPP PR PRN (19:47)
[2021-03-04] MEDS ORDERED: MAGNESIUM HYDROXIDE SUSP 30 ML UDC PO PRN (19:47)
[2021-03-04] MEDS ORDERED: diphenhydrAMINE Capsule 25 MG CAP PO PRN (19:47)
[2021-03-04] MEDS ORDERED: METOCLOPRAMIDE HCL INJ 5 MG/ML 2 ML VIAL IV PRN (19:47)
[2021-03-04] MEDS ORDERED: PHARMACY GLYCEMIC MGMT CONSULT PRN (20:09)
[2021-03-04] MEDS ORDERED: SODIUM CHLORIDE 0.9% 1000ML 1,000 ML IV SCH (20:15)
[2021-03-04] MEDS ORDERED: SENNA 8.6 MG TAB PO SCH (21:00)
[2021-03-04] MEDS: ceFAZolin 3,000 MG in DEXTROSE 5% 50 ML IV SCH (21:45)
[2021-03-04] MEDS: DOCUSATE SODIUM 100 MG CAP PO SCH (21:46)
[2021-03-04] MEDS: INSULIN ASPART 100 UNITS/ML 3 ML PEN SC SCH (21:47)
[2021-03-04] MEDS: ACETAMINOPHEN 500 MG TAB PO SCH (21:54)
[2021-03-04] MEDS: oxyCODONE HCL IR 5 MG TAB (IMMEDIATE RELEASE) PO PRN (22:04)
[2021-03-05] MEDS: INSULIN ASPART 100 UNITS/ML 3 ML PEN SC SCH ×4 (00:02→12:59)
[2021-03-05] MEDS ORDERED: INSULIN ASPART 100 UNITS/ML 3 ML PEN SC SCH (02:00)
[2021-03-05] MEDS: oxyCODONE HCL IR 5 MG TAB (IMMEDIATE RELEASE) PO PRN ×3 (04:12→12:21)
[2021-03-05] MEDS: ceFAZolin 3,000 MG in DEXTROSE 5% 50 ML IV SCH (04:16)
[2021-03-05] MEDS: ACETAMINOPHEN 500 MG TAB PO SCH (04:55)
[2021-03-05 06:30] LABS: Hematocrit (blood only) 34.3 % (42-52); Hemoglobin 11.2 g/dL (14.0-18.0); Mean Corpuscular Hemoglobin 27.9 pg (25-34); Mean Corpuscular Hgb Conc 32.7 g/dL (32-36); Mean Corpuscular Volume 85.3 fL (80-100); RDW Standard Deviation 40.9 fL (36.4-46.3); Red Blood Count 4.02 M/uL (4.7-6.1); White Blood Count 12.03 K/uL (4.8-10.8)
[2021-03-05 06:31] LABS: Immature Granulocytes # (auto) 0.02 K/uL (0.00-0.02); Immature Granulocytes % (auto) 0.2 %; Lymphocytes # (auto) 0.84 K/uL (1.2-3.4); Mean Platelet Volume 10.4 fL (7.4-10.4); Monocytes # (auto) 0.48 K/uL (0.11-0.59); Neutrophils # (auto) 10.69 K/uL (1.4-6.5); Neutrophils % (auto) 88.8 %; Platelet Count 251 K/uL (130-400); RDW Coefficient of Variation 13.1 % (11.5-14.5)
[2021-03-05 07:05] LABS: BUN Creatinine Ratio 15.4 (10-20); Calcium 8.2 mg/dl (8.5-10.1); Creatinine Clr Calc Pharmacy 59.6 ml/min; Est GFR (African American) 53.8; Est GFR (Non-African American) 46.4; Potassium 4.5 mmol/L (3.5-5.1)
[2021-03-05] MEDS ORDERED: lisinopril 20 MG TAB PO SCH (09:00)
[2021-03-05] MEDS ORDERED: ASPIRIN 81 MG ECTAB PO SCH (09:00)
[2021-03-05] MEDS ORDERED: ATORVASTATIN 20 MG TAB PO SCH (09:00)
[2021-03-05] MEDS ORDERED: MULTIVITAMIN TAB PO SCH (09:00)
[2021-03-05] MEDS ORDERED: INSULIN GLARGINE SOLOSTAR 100 UNITS/ML 3 ML PEN SC SCH (09:00)
[2021-03-05] MEDS: DOCUSATE SODIUM 100 MG CAP PO SCH (09:25)
--- NOTE | 2021-03-05 09:36 | Pharmacy Report ---
Pharmacy Glycemic Short Note 2 - Date of Service March 05, 2021 - Glycemic Short BSG Results (Last 24 hours): 03/04/21 03/04/21 03/04/21 14:18 17:17 21:32 Glucose POC Glucose 169 H 161 H 362 H* 03/04/21 03/04/21 03/05/21 21:34 23:50 04:01 Glucose POC Glucose 327 H* 281 H 201 H 03/05/21 03/05/21 06:05 08:10 Glucose 188 H POC Glucose 206 H OUTPATIENT ANTIDIABETIC REGIMEN: * Lantus 65 units SC qAM * Novolog 10-15 units SC TIDM * HbA1c: 6.4% (02/13/21) ASSESSMENT: * DB is a 55 year old female POD #1 s/p left total hip arthroplasty * received dexamethasone 8 mg PO x 1 + intra-articular ortho-mix containing dexamethasone * BSGs significantly elevated postoperatively - 161, 327, 281, and 201 mg/dL * Likely due to no additional insulin coverage for steroids in OR * Fasting BSG this morning of 206 mg/dL * Will continue patient's home dose of Lantus and continue with aggressive Novolog parameters PLAN FOR INPATIENT GLYCEMIC CONTROL: * Basal insulin * Lantus 65 units SC qAM * Bolus insulin * NovoLog per scale ACHS or Q6hrs while NPO * Goal Range: Low 110 mg/dL - High 140 mg/dL * Correction Factor: 15 mg/dL/unit * Nutritional / Prandial insulin per carb ratio of 1 unit per 5 grams CHO consumed PLAN FOR DISCHARGE: * HbA1c of 6.4% suggests excellent outpatient glycemic control * Provided that patient is not experiencing outpatient hypoglycemia, it is reasonable to continue current home regimen
--- NOTE | 2021-03-05 12:44 | Orthopedic Progress Note ---
Date of Service March 05, 2021 Assessment & Plan (1) Degenerative joint disease of left hip: Status post left anterior total hip arthroplasty POD#1 -Ancef x24 -DVT prophylaxis: SCDs, teds, 81 mg ASA twice daily -Weight-bear as tolerates left lower extremity -PT/OT -Postoperative x-ray demonstrates a well aligned well fixed prosthesis without fracture or dislocation -A.m. labs - as above, hgb 11.2 -DC planning - home with Admission and Anticipated Discharge Date Admission Date: March 04, 2021 Subjective Post Operative Progress Note Patient seen sitting in chair at bedside, comfortable, denies complaints, pain well controlled, no acute issues. Denies F/C/N/V/SOB/CP. Review of Systems Review of Systems: All systems reviewed & are unremarkable except as noted in HPI & below Physical Exam Physical Exam: LLE NVSI +EHL/FHL/TA/GS SILT grossly, +2 DP pulse, compartments soft NT, dressing cdi. Constitutional: WD/WN, vitals as above Results & Data ([facility]) Vital Signs (Past 12 Hours) Vital Signs Temp Pulse Resp BP BP Pulse Ox 03/05/21 11:39 37.3 C 112 H 16 127/78 96 03/05/21 08:06 36.7 C 100 H 18 123/78 94 03/05/21 04:08 36.8 C 103 H 22 128/83 96 Laboratory Results 03/05/21 03/05/21 03/05/21 Range/Units 11:50 08:10 06:05 WBC (4.8-10.8) K/uL RBC (4.7-6.1) M/uL Hgb (14.0-18.0) g/dL Hct (42-52) % MCV (80-100) fL MCH (25-34) pg MCHC (32-36) g/dL RDW Std Deviation (36.4-46.3) fL RDW Coeff of Mayur (11.5-14.5) % Plt Count (130-400) K/uL MPV (7.4-10.4) fL Immature Gran % (Auto) % Neut % (Auto) % Lymph % (Auto) % [place] % (Auto) % Eos % (Auto) % Baso % (Auto) % Neut # (Auto) (1.4-6.5) K/uL Lymph # (Auto) (1.2-3.4) K/uL [place] # (Auto) (0.11-0.59) K/uL Eos # (Auto) (0-0.5) K/uL Baso # (Auto) (0-0.2) K/uL Immature Gran # (Auto) (0.00-0.02) K/uL Sodium 134 L (136-145) mmol/L Potassium 4.5 (3.5-5.1) mmol/L Chloride 103 (98-107) mmol/L Carbon Dioxide 24 (21-32) mmol/L Anion Gap 8.0 (3-11) BUN 25 H (7-18) mg/dl Creatinine 1.62 H (0.6-1.4) mg/dl Est Cr Clr Drug Dosing 59.6 ml/min Est GFR ( Amer) 53.8 Est GFR (Non-Af Amer) 46.4 BUN/Creatinine Ratio 15.4 (10-20) Glucose 188 H (70-99) mg/dl POC Glucose 145 H 206 H (70-99) mg/dl Calcium 8.2 L (8.5-10.1) mg/dl 03/05/21 03/05/21 03/04/21 Range/Units 06:05 04:01 23:50 WBC 12.03 H (4.8-10.8) K/uL RBC 4.02 L (4.7-6.1) M/uL Hgb 11.2 L (14.0-18.0) g/dL Hct 34.3 L (42-52) % MCV 85.3 (80-100) fL MCH 27.9 (25-34) pg MCHC 32.7 (32-36) g/dL RDW Std Deviation 40.9 (36.4-46.3) fL RDW Coeff of Mayur 13.1 (11.5-14.5) % Plt Count 251 (130-400) K/uL MPV 10.4 (7.4-10.4) fL Immature Gran % (Auto) 0.2 % Neut % (Auto) 88.8 % Lymph % (Auto) 7.0 % [place] % (Auto) 4.0 % Eos % (Auto) 0.0 % Baso % (Auto) 0.0 % Neut # (Auto) 10.69 H (1.4-6.5) K/uL Lymph # (Auto) 0.84 L (1.2-3.4) K/uL [place] # (Auto) 0.48 (0.11-0.59) K/uL Eos # (Auto) 0.00 (0-0.5) K/uL Baso # (Auto) 0.00 (0-0.2) K/uL Immature Gran # (Auto) 0.02 (0.00-0.02) K/uL Sodium (136-145) mmol/L Potassium (3.5-5.1) mmol/L Chloride (98-107) mmol/L Carbon Dioxide (21-32) mmol/L Anion Gap (3-11) BUN (7-18) mg/dl Creatinine (0.6-1.4) mg/dl Est Cr Clr Drug Dosing ml/min Est GFR ( Amer) Est GFR (Non-Af Amer) BUN/Creatinine Ratio (10-20) Glucose (70-99) mg/dl POC Glucose 201 H 281 H (70-99) mg/dl Calcium (8.5-10.1) mg/dl 03/04/21 03/04/21 03/04/21 Range/Units 21:34 21:32 17:17 WBC (4.8-10.8) K/uL RBC (4.7-6.1) M/uL Hgb (14.0-18.0) g/dL Hct (42-52) % MCV (80-100) fL MCH (25-34) pg MCHC (32-36) g/dL RDW Std Deviation (36.4-46.3) fL RDW Coeff of Mayur (11.5-14.5) % Plt Count (130-400) K/uL MPV (7.4-10.4) fL Immature Gran % (Auto) % Neut % (Auto) % Lymph % (Auto) % [place] % (Auto) % Eos % (Auto) % Baso % (Auto) % Neut # (Auto) (1.4-6.5) K/uL Lymph # (Auto) (1.2-3.4) K/uL [place] # (Auto) (0.11-0.59) K/uL Eos # (Auto) (0-0.5) K/uL Baso # (Auto) (0-0.2) K/uL Immature Gran # (Auto) (0.00-0.02) K/uL Sodium (136-145) mmol/L Potassium (3.5-5.1) mmol/L Chloride (98-107) mmol/L Carbon Dioxide (21-32) mmol/L Anion Gap (3-11) BUN (7-18) mg/dl Creatinine (0.6-1.4) mg/dl Est Cr Clr Drug Dosing ml/min Est GFR ( Amer) Est GFR (Non-Af Amer) BUN/Creatinine Ratio (10-20) Glucose (70-99) mg/dl POC Glucose 327 H* 362 H* 161 H (70-99) mg/dl Calcium (8.5-10.1) mg/dl 03/04/21 Range/Units 14:18 WBC (4.8-10.8) K/uL RBC (4.7-6.1) M/uL Hgb (14.0-18.0) g/dL Hct (42-52) % MCV (80-100) fL MCH (25-34) pg MCHC (32-36) g/dL RDW Std Deviation (36.4-46.3) fL RDW Coeff of Mayur (11.5-14.5) % Plt Count (130-400) K/uL MPV (7.4-10.4) fL Immature Gran % (Auto) % Neut % (Auto) % Lymph % (Auto) % [place] % (Auto) % Eos % (Auto) % Baso % (Auto) % Neut # (Auto) (1.4-6.5) K/uL Lymph # (Auto) (1.2-3.4) K/uL [place] # (Auto) (0.11-0.59) K/uL Eos # (Auto) (0-0.5) K/uL Baso # (Auto) (0-0.2) K/uL Immature Gran # (Auto) (0.00-0.02) K/uL Sodium (136-145) mmol/L Potassium (3.5-5.1) mmol/L Chloride (98-107) mmol/L Carbon Dioxide (21-32) mmol/L Anion Gap (3-11) BUN (7-18) mg/dl Creatinine (0.6-1.4) mg/dl Est Cr Clr Drug Dosing ml/min Est GFR ( Amer) Est GFR (Non-Af Amer) BUN/Creatinine Ratio (10-20) Glucose (70-99) mg/dl POC Glucose 169 H (70-99) mg/dl Calcium (8.5-10.1) mg/dl
--- NOTE | 2021-03-05 19:23 | Discharge Summary ---
Date of Service March 05, 2021 Admission HPI Per Admitting Provider The patient is a 55 year old male who presents with complaints of severe left hip pain and DJD. The patient has failed outpatient conservative treatments to this point. The patient's pain and limited function have progressed to the point where they severely hinder their activities of daily living and they no longer tolerate exercise programs. They are requesting to proceed with total hip replacement surgery. Principal Diagnosis Left anterior total hip replacement Discharge Exam LLE NVSI +EHL/FHL/TA/GS SILT grossly, +2 DP pulse, compartments soft NT, dressing cdi. Constitutional WD/WN, vitals as above Discharge Data Allergies Allergy/AdvReac Type Severity Reaction Status Date / Time No Known Drug Allergies Allergy Verified 03/04/21 09:11 Procedures Performed Operation Date: 03/04/21 11:00 Actual Procedures p Left Anterior Total Hip Arthroplasty(Left) - Kar Fagan DO Ordered Studies 03/04/21 11:00 FL fluoroscopy <1hr Routine FL hip LT 1V Routine Hospital Course (1) Degenerative joint disease of left hip: The patient is a 55 -year-old male who presents with long standing history of severe left hip DJD and failed outpatient conservative treatments. The patient's symptoms have progressed to the point where it has been difficult to perform even normal activities of daily living. I indicated the patient for a left anterior total hip arthroplasty, the risks, benefits and complications of the procedure include but not limited to infection, bleeding, damage to bone, nerves, vessels, surrounding soft tissue, may develop blood clots, loss of function, leg length discrepancy, dislocation, failure of the components, loosening of the components, the need for additional surgery and . The patient wished to proceed with surgery at this time and informed consent was obtained. Hospital Course: On 03/04/21 the patient was taken to the operating room, adequate anesthesia administered and underwent a left anterior total hip arthroplasty. The patient tolerated the procedure well and was taken to the PACU in stable condition. Post-operatively the patient was started on a DVT ppx medication and given appropriate IV antibiotics. Consults were placed to physical therapy, occupational therapy and case management. On POD#1, the patient did well overnight and their pain was well controlled. Labs were drawn and the Hgb was 11.2. The patient progressed well with PT. Dressings were changed at this time and the incision was clean, dry and intact. The patients hospital stay was relatively uneventful and they were deemed stable by the orthopedic team and consultants to be discharged home with HH on 03/05/21. Discharge Instructions: Upon discharge the patient may weight bear as tolerates through their operative extremity. They were instructed to keep the incision clean and dry at all times. The patient may shower but should not submerge the incision, avoid bathing, pools and hot tubs. The patient was given a script for pain medication and should take as instructed. The patient was given a script for DVT ppx 81mg ASA BID and should take as directed. The patient was instructed to not drive or travel for long distances until cleared to do so. If the patient develops any symptoms of fevers, chills, nausea, vomiting, increased redness, swelling, pain or drainage from the surgical site, they should notify the office and/or proceed to the nearest emergency room. The patient should follow up in 10-14 days after surgery for their routine post-operative follow-up appointment and should call the office, to confirm the date and time. Status post left anterior total hip arthroplasty POD#1 -Ancef x24 -DVT prophylaxis: SCDs, teds, 81 mg ASA twice daily -Weight-bear as tolerates left lower extremity -PT/OT -Postoperative x-ray demonstrates a well aligned well fixed prosthesis without fracture or dislocation -A.m. labs - as above, hgb 11.2 -DC planning - home with Total Time Total Time Spent Total Time Spent (In Minutes): 30 Discharge Plan Discharge Items Patient Disposition: Home - Home Health Services Reason For Visit: Osteoarthritis left Hip Discharge Diagnosis: Left anterior total hip replacement Condition on Discharge: Good Activity: Per Instructions section Lifting: Wait until after follow-up appointment Bathing: Keep incision dry Bathing Comment: No bathing, pools or hot tubs. Sexual Activity: Wait until after follow-up appointment Exercise/Sports: Wait until after follow-up appointment Driving/Machine Use: No driving. Weightbearing: Full weightbearing Non-emergency contact: Primary Care Provider and Surgeon Call non-emergency contact if: you have any medication questions, your symptoms worsen, your pain is not controlled, your pain is worsening, your pain is unusual for you, your pain is concerning for you, you have a fever, your temperature is above 101, your wound has increased redness, your wound has increased drainage and your wound pain has increased Follow-up/Referrals: Topher Simmons DO [Primary Care Provider] - Diet: Carb Consistent or DM2 Addtl Attending Provider Instructions: ACTIVITY RECOMMENDATIONS: SELF CARE INSTRUCTIONS AFTER TOTAL HIP REPLACEMENT : Direct Anterior Approach Until the incision and soft tissues around your hip have healed, there is a possibility that the hip prosthesis could dislocate. A. Hip flexion ( Up & Down out of chair or steps ) may be difficult. This is normal. B. Numbness in front of the thigh is also normal for a few weeks. C. Use hand rails when walking on stairs. D. Wear low heeled shoes with non-slip soles. E. Be sure that your floors are free of things that could trip you - throw rugs, electrical cords, small objects. Avoid wet and waxed floors, especially with crutches and canes. F. Try to walk several times a day with rest periods between. G. Continue with all the exercises taught to you in the hospital. Again, make walking a part of your daily routine. SPECIAL CARE INSTRUCTIONS: VERY IMPORTANT TO READ AND REVIEW A. You may still be at risk for phlebitis and blood clots. 1. Wear surgical stockings (ERIC hose) for 2 weeks after surgery to improve circulation and reduce swelling. 2. Take Aspirin 81mg twice daily for 4 weeks or as directed by your doctor. This is your blood thinner. 3. High risk patients may be prescribed a stronger blood thinner if necessary. 4. If you are on Coumadin normally, your family doctor/social service liaison should monitor your blood work. Expect a phone call the day of or the day after bloodwork is drawn to adjust your dosage. B. You must take antibiotics before having dental work, bladder, bowel and other surgery. Your doctor will provide you with a permanent card to carry describing precautions. C. Call [facility] if you have a fever, redness or swelling around the incision, cloudy drainage from incision, or sudden increase in pain in your hip, not relieved by your regular pain medication. D. Please call the office at if you have any concerns or questions about your operation or recovery. * YOU MAY SHOWER, NO TUB BATHS UNTIL CLEARED BY YOUR DOCTOR. - Keep an extra close eye on the top portion of your incision. Be sure to keep clean & dry. * WEAR ERIC HOSE 20 HOURS PER DAY FOR 2 WEEKS. * YOU MAY PROGRESS FROM A WALKER, TO A CANE, TO INDEPENDENT AT YOUR OWN PACE. * MOST PATIENTS WILL HAVE HOME NURSING FOR THERAPY. IF YOU DECIDE TO DO OUTPATIENT PHYSICAL THERAPY, PLEASE SCHEDULE THIS 3 TIMES PER WEEK. *KIET incisional vac is a special dressing covering your incision. This dressing provides a sterile dry environment while you are healing. The dressing is to be left in place for 7 days post-operatively. Your home nurse or surgeon will remove. If you develop any redness or blisters or have any questions notify your surgeon immediately. FOLLOW UP VISIT: If appointment is not already scheduled: Please call [facility] to make a follow-up appointment for 2 weeks after your surgery at . Pending Studies at Discharge: No Stand-Alone Forms: My [facility], Smoking Cessation Medications and DC Order Prescriptions: New aspirin 81 mg Tablet,Delayed Release (Dr/Ec) 81 mg PO BID Qty: 56 RF: 0 acetaminophen 500 mg Tablet 1,000 mg PO Q8 PRN (Reason: pain/fevers) Qty: 90 RF: 0 oxycodone 5 mg Tablet 5 mg PO Q6H MDD 4 PRN (Reason: pain) Qty: 30 RF: 0 sennosides [Senokot] 8.6 mg Tablet 17.2 mg PO HS PRN (Reason: constipation) Qty: 28 RF: 0 Continued (DME) blood-glucose meter [Accu-Chek Guide Glucose Meter] Misc See Rx Instructions .ROUTE .MEDSUPPLY Qty: 1 RF: 0 (DME) lancets [Accu-Chek Fastclix Lancet Drum] Misc See Rx Instructions .ROUTE .MEDSUPPLY Qty: 300 RF: 5 atorvastatin 20 mg tablet 20 mg PO QAM Qty: 90 RF: 3 diclofenac sodium [Voltaren] 1 % gel 8 g EXT QID Qty: 100 RF: 5 insulin aspart U-100 [Novolog Flexpen U-100 Insulin] 100 unit/mL (3 mL) insulin pen 10 - 15 unit SQ TID Qty: 15 RF: 5 Basaglar KwikPen U-100 Insulin 100 unit/mL (3 mL) insulin pen 65 unit subcut QAM Qty: 20 RF: 5 (DME) Accu-Chek Guide test strips Strip See Rx Instructions .ROUTE .MEDSUPPLY Qty: 300 RF: 12 lisinopril 20 mg tablet 20 mg PO QAM Qty: 90 RF: 3 tadalafil 10 mg tablet 10 mg PO DAILY PRN (Reason: sexual activity) Qty: 30 RF: 5 cyclobenzaprine 10 mg tablet 10 mg PO TID PRN (Reason: Muscle Spasm) RF: 0 Discontinued naproxen 500 mg tablet 500 mg PO BID Qty: 60 RF: 5 Discharge Orders: Discharge Order (Routine); Ordered 03/05/21 Ordered By: Kar Pierson/Other Patient Handouts: Managing Post-Op Pain at Home Admission Data Admit Date/Time: 03/04/21 17:16 Attending Provider: Kar Fagan Admit Provider: Kar Fagan Primary Care Provider: Topher Simmons Other Providers: [facility],Home Healthcare Other Interventions: Discharge Summary Assessment (RN) Last Done: 03/05/21 13:13
== END 2021-03-05 14:00 | disposition home health service (06) ==
LOC: ASU 08:33 → 3E 08:33

== ENCOUNTER 2022-03-14 18:23 | Inpatient (IN) ==
[2022-03-14] MEDS ORDERED: LORazepam 2 MG/1 ML VIAL ONE ×2 (18:32→20:54)
[2022-03-14] MEDS ORDERED: SODIUM CHLORIDE 0.9% 500 ML IV ONE (18:41)
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
[2022-03-14 19:10] LABS: Basophils # (auto) 0.01 K/uL (0-0.2); Basophils % (auto) 0.1 %; Eosinophils # (auto) 0.01 K/uL (0-0.5); Eosinophils % (auto) 0.1 %; Hematocrit (blood only) 42.9 % (42-52); Hemoglobin 13.3 g/dL (14.0-18.0); Immature Granulocytes # (auto) 0.03 K/uL (0.00-0.02); Immature Granulocytes % (auto) 0.3 %; Lymphocytes # (auto) 1.07 K/uL (1.2-3.4); Lymphocytes % (auto) 10.7 %; Mean Corpuscular Hemoglobin 28.1 pg (25-34); Mean Corpuscular Volume 90.5 fL (80-100); Mean Platelet Volume 10.8 fL (7.4-10.4); Monocytes # (auto) 0.38 K/uL (0.11-0.59); Monocytes % (auto) 3.8 %; Neutrophils # (auto) 8.46 K/uL (1.4-6.5); Platelet Count 223 K/uL (130-400); RDW Coefficient of Variation 12.2 % (11.5-14.5); Red Blood Count 4.74 M/uL (4.7-6.1); White Blood Count 9.96 K/uL (4.8-10.8)
[2022-03-14 19:30] LABS: Albumin Globulin Ratio 1.8 (0.9-2); Albumin Level 4.5 gm/dl (3.4-5.0); BUN Creatinine Ratio 16.5 (10-20); Bilirubin,Total 0.6 mg/dl (0.2-1.0); Calcium 9.1 mg/dl (8.5-10.1); Creatinine Clr Calc Pharmacy 73.4 ml/min; Est GFR (African American) 71.7 ml/min; Est GFR (Non-African American) 61.9 ml/min; Globulin 2.5 gm/dl (2.5-4.0); Magnesium 2.1 mg/dl (1.7-2.4); Potassium 4.5 mmol/L (3.5-5.1)
--- NOTE | 2022-03-14 19:30 | CT Scan Report ---
CT head/brain wo con CLINICAL HISTORY: seizure like activity COMPARISON STUDY: 02/16/2022 CT DOSE: 537.48 mGy.cm TECHNIQUE: Standard CT of the Brain was performed without IV contrast. A dose lowering technique was utilized adhering to the principles of ALARA. FINDINGS: Extraaxial space: There is no evidence for subdural hematoma. There are no extra-axial fluid collecti ons. Ventricles and cisterns: The ventricles are normal in size and configuration. There is no evidence fo r midline shift or mass effect. Parenchyma: There is no subarachnoid or intraparenchymal hemorrhage. There is no evidence for an acut e infarct or cerebral edema. There is homogeneous attenuation of the brain parenchyma. There are no g ross mass lesions. Osseous structures: There is no evidence for an acute fracture. There is a 1.5 cm mucosal polyp versu s an inclusion cyst within the left maxillary antrum. The remaining visualized paranasal sinuses are clear. The mastoid air cells are clear bilaterally. Soft tissues: There is no evidence for focal soft tissue swelling. IMPRESSION: 1. No acute intracerebral pathology. 2. Chronic left maxillary sinusitis. ACT 112: Negative or not required by law. Electronically signed by: Raji Amaro M.D. 03/14/2022 7:29 PM
--- NOTE | 2022-03-14 19:41 | XRay Report ---
XR chest 1V portable CLINICAL HISTORY: Chest Pain. COMPARISON STUDY: 03/04/2021 TECHNIQUE: 1 view of the chest FINDINGS: Single frontal view of the chest demonstrates the cardiomediastinal silhouette to be within normal li mits. The lungs are clear of alveolar opacities. There is no evidence for pleural effusion. There is no evidence for vascular congestion. There is no acute osseous pathology. IMPRESSION: 1. No acute cardiopulmonary disease. ACT 112: Negative or not required by law. Electronically signed by: Raji Amaro M.D. 03/14/2022 7:39 PM
[2022-03-14] MEDS: LORazepam 2 MG/1 ML VIAL IV STA ×2 (21:37→23:03)
[2022-03-14 22:10] LABS: Prothrombin Time 10.9 Seconds (9.0-12.0)
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
[2022-03-15] MEDS ORDERED: LORazepam 2 MG/1 ML VIAL IV PRN ×2 (01:10→23:16)
[2022-03-15] MEDS ORDERED: PHARMACY GLYCEMIC MGMT CONSULT PRN (01:10)
[2022-03-15 01:18] LABS: Amphetamines+Metham, Urine Neg (Neg); Barbiturates, Urine Neg (Neg); Benzodiazepine, Urine Neg (Neg); Cocaine, Urine Neg (Neg); MDMA (Ecstacy), Urine Neg (Neg); Methadone, Urine Neg (Neg); Opiate, Urine Neg (Neg); Phencyclidine, Urine Neg (Neg)
[2022-03-15] MEDS ORDERED: CARBOHYDRATES FOR HYPOGLYCEMIA PO PRN (02:15)
[2022-03-15] MEDS ORDERED: GLUCOSE 40% GEL 15 GM TUBE PO PRN (02:15)
[2022-03-15] MEDS ORDERED: DEXTROSE 50% 50 ML SYRINGE IV PRN (02:15)
[2022-03-15] MEDS ORDERED: GLUCAGON FOR INJ 1 MG VIAL IM PRN (02:15)
[2022-03-15] MEDS ORDERED: GLUCOSE 10 TABS/TUBE PO PRN (02:15)
[2022-03-15 06:17] LABS: Hematocrit (blood only) 39.9 % (42-52); Hemoglobin 12.5 g/dL (14.0-18.0); Mean Corpuscular Hemoglobin 28.2 pg (25-34); Mean Corpuscular Hgb Conc 31.3 g/dL (32-36); Mean Corpuscular Volume 89.9 fL (80-100); Mean Platelet Volume 10.4 fL (7.4-10.4); Platelet Count 232 K/uL (130-400); RDW Coefficient of Variation 12.4 % (11.5-14.5); RDW Standard Deviation 40.6 fL (36.4-46.3); Red Blood Count 4.44 M/uL (4.7-6.1); White Blood Count 8.54 K/uL (4.8-10.8)
[2022-03-15 06:46] LABS: Albumin Globulin Ratio 1.9 (0.9-2); Albumin Level 3.8 gm/dl (3.4-5.0); BUN Creatinine Ratio 15.3 (10-20); Bilirubin,Total 0.8 mg/dl (0.2-1.0); Calcium 8.5 mg/dl (8.5-10.1); Creatinine Clr Calc Pharmacy 83.9 ml/min; Est GFR (African American) 84.4 ml/min; Est GFR (Non-African American) 72.8 ml/min; Potassium 3.4 mmol/L (3.5-5.1); Total Protein 5.8 gm/dl (6.0-8.3)
--- NOTE | 2022-03-15 07:32 | Electrocardiogram Report ---
Test Reason : Blood Pressure : / mmHG Vent. Rate : 072 BPM Atrial Rate : 072 BPM P-R Int : 160 ms QRS Dur : 096 ms QT Int : 392 ms P-R-T Axes : 063 -33 001 degrees QTc Int : 429 ms Normal sinus rhythm Left axis deviation Abnormal ECG When compared with ECG of 16-FEB-2022 17:32, No significant change was found Confirmed by Venkata Kumar ([id number]) on 03/15/2022 7:31:39 AM Referred By: REFERRED SELF Confirmed By:Too Kumar
[2022-03-15] MEDS ORDERED: POTASSIUM CHLORIDE CRTAB 20 MEQ TABCR PO STA (07:40)
[2022-03-15] MEDS: INSULIN ASPART PER UNIT SC SCH ×4 (08:06→21:18)
[2022-03-15] MEDS: ESCITALOPRAM OXALATE 20 MG TAB PO SCH (08:26)
[2022-03-15] MEDS: lisinopril 20 MG TAB PO SCH (08:26)
[2022-03-15] MEDS: BUPRENORPHINE/NALOXONE 8/2 MG TAB SL SCH (08:31)
[2022-03-15] MEDS ORDERED: BUPRENORPHINE/NALOXONE 8/2 MG TAB SL SCH (09:00)
[2022-03-15] MEDS ORDERED: NICOTINE 14 MG/24 HR PATCH TD SCH (09:00)
[2022-03-15] MEDS: levETIRAcetam 500 MG TAB PO SCH ×2 (10:20→21:17)
--- NOTE | 2022-03-15 13:50 | Pharmacy Report ---
Pharmacy Glycemic Short Note 2 - Date of Service March 15, 2022 - Glycemic Short BSG Results (Last 24 hours): 03/14/22 03/14/22 03/15/22 18:28 18:53 00:57 Glucose 163 H POC Glucose 188 H 70 03/15/22 03/15/22 03/15/22 03:55 06:00 07:24 Glucose 59 L POC Glucose 82 63 L* 03/15/22 03/15/22 07:25 11:22 Glucose POC Glucose 69 L* 106 H OUTPATIENT ANTIDIABETIC REGIMEN: * Basaglar 55 units Qam, Novolog 10-15 units TID * A1c 7.7% ASSESSMENT: * Patient admitted with seizure like activity, BSGs in the 30s prior to arrival. BSGs continue to be low this morning 50-60s, now trending up to 100s at lunch time. No PO intake noted. Plan to continue with novolog for now * May add scale for HS for basal insulin, however will be very conservative with dosing PLAN FOR INPATIENT GLYCEMIC CONTROL: * Hold outpatient oral diabetes medications * Basal insulin * Lantus 0-15 units HS * Bolus insulin * NovoLog per scale ACHS or Q6hrs while NPO * Goal Range: Low 110 mg/dL - High 140 mg/dL * Correction Factor: 30 mg/dL/unit * Nutritional / Prandial insulin per carb ratio of 1 unit per 10 grams CHO consumed
--- NOTE | 2022-03-15 16:32 | Hospitalist Progress Note ---
Date of Service March 15, 2022 Assessment & Plan (1) Observed seizure-like activity: Plan: 56 year old male w/ DM1, prior polysubstance abuse on suboxone, and years of undiagnosed seizure-like episodes who presents w/ several seizure-like episodes and hypoglycemia. Generalized seizures Initially reported with hypoglycemia, on review with patient and family he has had multiple observed episodes by family with normal blood sugars, patient does not remember these episodes. No family history of seizures Patient does endorse a use of a marijuana vape pen at home in addition to cigarette use. Discussed marijuana as a potential triggering factor for his seizures. He is not sure if his vape use has correlated to episodes of seizures. -Seizure protocol MRI brain and EEG pending Given that episodes have been recurrent, occur outside of upper glycemia, and h ad an observed episode which was severe enough to trigger a mild elevation in CK will continue Keppra 500 mg twice daily at this time - DOT report for seizure being completed - neuro consulted CThead without acute findings Sodium normal Magnesium normal Troponin normal Covid negative EKG: NSR, QTC 429 (2) Hypoglycemia: Plan: -Last A1c 7.7, Hypoglycemic to 60s on admission, pharmacy glycemic management consult placed on admission Somewhat labile blood sugars today, currently on basal bolus BSG goal range 339896, CF 30, ratio 10 Glargine scale to 0-15 units (3) Type 1 diabetes mellitus, uncontrolled: Plan: - see above (4) Hypertension: Plan: - continue home regimen (5) Elevated creatine kinase: Plan: -In the setting of observed seizure Trend, no renal impairment (6) Hypokalemia: Plan: - repleting. follow bmp (7) Tobacco use disorder: Plan: - nicotine patch - drug and alcohol counselor Plan: FEN/GI: HH, low Na SCDs code: full dispo: pcu Admission and Anticipated Discharge Date Admission Date: March 14, 2022 Subjective The Noble was seen at the bedside in the morning, and on reassessment in the afternoon. Patient is doing well. On further history with [id number] and with patient he has had multiple episodes which he does not remember in which have occurred with normal blood sugars. He does smoke, and also uses a marijuana vape pen. Is not sure if seizures are associated with episodes of vaping. Today he denies shortness of breath, difficulty breathing, lightheadedness, dizziness, loss of consciousness, shaking, tremor, weakness, confusion. Has not had chest pain, chest pressure Still awaiting MRI Peeing normally, light yellow urine Review of Systems Review of Systems: All systems reviewed & are unremarkable except as noted in Subjective Physical Exam Physical Exam: General: A&Ox3. NAD. Cooperative. HEENT: Atraumatic, normocephalic. Visual acuity and hearing grossly intact. Pulm: CTAB A&P. -wheezes, -rales, -rhonchi. Symmetrical chest rise. No increase in work of breathing. No respiratory distress. Cardiac: RRR, -mrg. Radial pulses intact and symmetrical. Abdominal: Nontender, nondistended, soft. BS present. CRANIAL NERVES: II: Pupils equal and reactive, no relative afferent pupillary defect, no VF cuts III, IV, : EOM intact, no gaze preference or deviation, no nystagmus. V: normal sensation in V1, V2, and V3 segments bilaterally VII: no asymmetry, no nasolabial fold flattening VIII: normal hearing to speech IX, X: normal palatal elevation, no uvular deviation XI: 5/5 head turn and 5/5 shoulder shrug bilaterally XII: midline tongue protrusion MOTOR: RUE: 5/5 Shoulder internal rotation, external rotation, flexion, extension, abduction, adduction 5/5 Elbow flexion/extension, wrist flexion/extension 5/5 funeral greeter strength, finger flexion/extension, interosseus LUE: 5/5 Shoulder internal rotation, external rotation, flexion, extension, abduction, adduction 5/5 Elbow flexion/extension, wrist flexion/extension 5/5 funeral greeter strength, finger flexion/extension, interosseus RLE: 5/5 to hip flexion ankle dorsiflexion/plantarflexion LLE: 5/5 to hip flexion, ankle dorsiflexion/plantarflexion SENSORY: Normal to touch upper and lower extremities without deficit or asymmetry Results & Data Results & Data ([facility]) Vital Signs (Past 12 Hours) Vital Signs Temp Pulse Pulse Resp BP Pulse Ox 03/15/22 15:22 37.0 C 80 22 133/83 90 03/15/22 11:59 36.9 C 70 22 100/59 L 96 03/15/22 11:46 82 03/15/22 07:57 37.0 C 83 24 121/79 93 PG Care Time/CCT Total # of Minutes Spent Total Time Spent with Patient: Total time spent is greater than 50% in coordination of care (as documented) at patient's floor/unit and/or counseling patient: Coding Level of Care Code 34883 Subseq Hosp Care Lvl 2 Diagnoses Observed seizure-like activity R56.9 Hypoglycemia E16.2 Type 1 diabetes mellitus, uncontrolled Hypertension I10 Elevated creatine kinase R74.8 Hypokalemia E87.6 Tobacco use disorder F17.200
[2022-03-15] MEDS ORDERED: NICOTINE POLACRILEX 2 MG GUM MT PRN (16:48)
[2022-03-15] MEDS: NICOTINE 14 MG/24 HR PATCH TD SCH (17:27)
[2022-03-15] MEDS ORDERED: INSULIN GLARGINE SOLOSTAR 100 UNITS/ML 3 ML PEN SC SCH (21:00)
[2022-03-15] MEDS ORDERED: LORazepam 2 MG/1 ML VIAL IV STA (23:17)
[2022-03-16] MEDS ORDERED: INSULIN ASPART PER UNIT SC SCH
--- NOTE | 2022-03-16 05:11 | Billing Data ---
Date of Service March 16, 2022 Coding Level of Care Code 81755 Initial Inpt Care Lvl 3
[2022-03-16 06:47] LABS: Basophils # (auto) 0.02 K/uL (0-0.2); Basophils % (auto) 0.3 %; Eosinophils # (auto) 0.12 K/uL (0-0.5); Eosinophils % (auto) 1.9 %; Hematocrit (blood only) 38.7 % (42-52); Hemoglobin 11.8 g/dL (14.0-18.0); Immature Granulocytes # (auto) 0.02 K/uL (0.00-0.02); Immature Granulocytes % (auto) 0.3 %; Lymphocytes # (auto) 2.38 K/uL (1.2-3.4); Lymphocytes % (auto) 37.5 %; Mean Corpuscular Hgb Conc 30.5 g/dL (32-36); Mean Corpuscular Volume 91.7 fL (80-100); Mean Platelet Volume 11.1 fL (7.4-10.4); Monocytes % (auto) 6.3 %; Neutrophils % (auto) 53.7 %; Platelet Count 196 K/uL (130-400); RDW Coefficient of Variation 12.3 % (11.5-14.5); RDW Standard Deviation 41.5 fL (36.4-46.3); Red Blood Count 4.22 M/uL (4.7-6.1); White Blood Count 6.34 K/uL (4.8-10.8)
[2022-03-16 07:08] LABS: BUN Creatinine Ratio 14.2 (10-20); Calcium 8.5 mg/dl (8.5-10.1); Creatinine Clr Calc Pharmacy 73.4 ml/min; Est GFR (African American) 71.7 ml/min; Est GFR (Non-African American) 61.9 ml/min; Potassium 4.8 mmol/L (3.5-5.1)
[2022-03-16] MEDS: INSULIN ASPART PER UNIT SC SCH ×2 (08:43→12:22)
[2022-03-16] MEDS: ESCITALOPRAM OXALATE 20 MG TAB PO SCH (08:44)
[2022-03-16] MEDS: levETIRAcetam 500 MG TAB PO SCH (08:44)
[2022-03-16] MEDS: NICOTINE 14 MG/24 HR PATCH TD SCH (08:45)
[2022-03-16] MEDS: lisinopril 20 MG TAB PO SCH (08:45)
[2022-03-16] MEDS: BUPRENORPHINE/NALOXONE 8/2 MG TAB SL SCH (08:47)
[2022-03-16] MEDS ORDERED: INSULIN GLARGINE SOLOSTAR 100 UNITS/ML 3 ML PEN SC SCH ×2 (09:20→21:00)
--- NOTE | 2022-03-16 09:30 | Magnetic Resonance Report ---
Brain MRI WITH AND WITHOUT CONTRAST HISTORY: seizure-like activity TECHNIQUE: Multiplanar multisequence MRI of the brain was performed without contrast. COMPARISON STUDY: Head CT 03/14/2022 FINDINGS: No areas restricted diffusion to suggest acute infarction. The midline structures are intac t. There is no mass, hematoma, midline shift. Mild mucosal thickening within the paranasal sinuses wi th small retention cyst within the maxillary sinuses. The mastoid air cells are clear. The major vasc ular flow-voids at the skull base are well-maintained. The ventricles and sulci are within normal easley its for age. The orbits are unremarkable. Mild asymmetric increased T2 signal and atrophy within the medial left temporal lobe at the level of the hippocampus. Therefore, this favors mesial temporal scl erosis. The right medial temporal lobe is unremarkable. Mild motion artifact. Mild patchy T2 hyperint ensity within the periventricular white matter favors mild microvascular ischemic change. IMPRESSION: 1. Mild asymmetric increased T2 signal and atrophy within the medial left temporal lobe at the level of the hippocampus. Therefore, this favors mesial temporal sclerosis. 2. No acute infarct or intracranial hemorrhage. ACT 112: Negative or not required by law. Electronically signed by: Christian Mitchell M.D. 03/16/2022 9:29 AM
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
--- NOTE | 2022-03-16 12:34 | Pharmacy Report ---
Pharmacy Glycemic Short Note 2 - Date of Service March 16, 2022 - Glycemic Short BSG Results (Last 24 hours): 03/15/22 03/15/22 03/16/22 16:09 21:17 00:42 Glucose POC Glucose 283 H 77 83 03/16/22 03/16/22 03/16/22 06:13 07:28 11:49 Glucose 155 H POC Glucose 163 H 158 H OUTPATIENT ANTIDIABETIC REGIMEN: * Basaglar 55 units Qam, Novolog 10-15 units TID * A1c 7.7% ASSESSMENT: 03/16: * BSGs over the last 24h: [id number]. Patient received 10 units of Novolog yesterday (no basal). * Tolerating diet * Lantus 8 units this AM (~AdjBW/stress 1) given consistent low BSGs with seiz ure activity and strictly controlled A1C. Plan for an HS scale tonight- 0/8units depending on BSG. Will titrate basal conservatively. * No change to Novolog parameters at this point. 03/15 * Patient admitted with seizure like activity, BSGs in the 30s prior to arrival. BSGs continue to be low this morning 50-60s, now trending up to 100s at lunch time. No PO intake noted. Plan to continue with novolog for now * May add scale for HS for basal insulin, however will be very conservative with dosing PLAN FOR INPATIENT GLYCEMIC CONTROL: * Hold outpatient oral diabetes medications * Basal insulin * Lantus 8 units qAM, HS scale * Bolus insulin * NovoLog per scale ACHS or Q6hrs while NPO * Goal Range: Low 110 mg/dL - High 140 mg/dL * Correction Factor: 30 mg/dL/unit * Nutritional / Prandial insulin per carb ratio of 1 unit per 10 grams CHO consumed
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
--- NOTE | 2022-03-16 17:03 | Electroencephalogram ---
EEG Procedure Note Date of Service March 16, 2022 Start / End Times Start Time: 11:19A End Time: 11:39A Referring Physician Young Minaya History Recurrent seizures Home Medication List Medication Instructions Recorded Confirmed Type Accu-Chek Guide test strips (blood #300 ea NS 02/26/21 03/14/22 Rx sugar diagnostic) atorvastatin 20 mg tablet 20 mg PO QAM #90 tab 02/26/21 03/14/22 Rx lisinopril 20 mg tablet 20 mg PO QAM #90 tab 02/26/21 03/14/22 Rx tadalafil 10 mg tablet 10 mg PO DAILY PRN #30 tab 02/26/21 03/14/22 Rx acetaminophen 500 mg tablet 1,000 mg PO Q8 PRN #90 tab 03/04/21 03/14/22 Rx pen needle, diabetic 32 gauge x #100 ea 06/17/21 03/14/22 Rx /16" blood-glucose meter (Accu-Chek #1 ea 06/18/21 03/14/22 Rx Guide Glucose Meter) blood-glucose meter (Blood Glucose #1 ea 11/27/21 03/14/22 Rx Monitoring) lancets (Accu-Chek Fastclix Lancet #300 ea 02/12/22 03/14/22 Rx Drum) diclofenac sodium 75 mg 75 mg PO BID #20 tab 02/13/22 03/14/22 Rx tablet,delayed release furosemide 20 mg tablet 20 mg PO DAILY 02/16/22 03/14/22 History cyclobenzaprine 10 mg tablet 10 mg PO BID PRN tab 02/25/22 03/14/22 History escitalopram oxalate 20 mg tablet 20 mg PO DAILY tab 02/25/22 03/14/22 History insulin aspart U-100 100 unit/mL 10 - 15 unit SQ TID ml 02/25/22 03/14/22 History (3 mL) subcutaneous pen (Novolog Flexpen U-100 Insulin aspart) buprenorphine 8 mg-naloxone 2 mg 2 tab SUBLINGUAL DAILY 03/14/22 03/14/22 Hist ory sublingual tablet flash glucose scanning reader #1 ea 03/16/22 Rx (FreeStyle Evelyn 14 [place]) flash glucose sensor (FreeStyle #1 ea 03/16/22 Rx Evelyn 14 Day Sensor) insulin glargine 100 unit/mL (3 See Rx Instructions .ROUTE 03/16/22 Rx mL) subcutaneous pen (Lantus .COMPLEX #3 ml Solostar U-100 Insulin) levetiracetam 500 mg tablet 500 mg PO BID #60 tab 03/16/22 Rx (Keppra) Inpatient Medication List Discontinued Medications Buprenorphine/Naloxone (Buprenorphine/Naloxone 8/2 Mg Tab) 2 tab SL DAILY DINA Stop: 04/14/22 08:59 Last Admin: 03/16/22 08:47 Dose: 2 tab Documented by: [id number] Admin: 03/15/22 08:31 Dose: 2 tab Documented by: [id number] Escitalopram Oxalate (Escitalopram Oxalate 20 Mg Tab) 20 mg PO DAILY DINA Stop: 04/14/22 08:59 Last Admin: 03/16/22 08:44 Dose: 20 mg Documented by: [id number] Admin: 03/15/22 08:26 Dose: 20 mg Documented by: [id number] Sodium Chloride (Nss) 500 mls @ 999 mls/hr IV .Q31M ONE Stop: 03/14/22 19:11 Last Infusion: 03/14/22 19:47 Dose: 0 mls/hr Documented by: [id number] Admin: 03/14/22 18:58 Dose: 999 mls/hr Documented by: [id number] Levetiracetam 2,000 mg/ Sodium (Chloride) 270 mls @ 999 mls/hr IV NOW STA Stop: 03/14/22 21:18 Last Infusion: 03/14/22 22:06 Dose: 0 mls/hr Documented by: [id number] Admin: 03/14/22 21:31 Dose: 999 mls/hr Documented by: [id number] Insulin Aspart (Insulin Aspart Per Unit) 0 units SC ACHS DINA Stop: 04/14/22 07:29 Last Admin: 03/16/22 12:22 Dose: 10 units Documented by: [id number] Cosigned by: [id number] Admin: 03/16/22 08:43 Dose: 4 units Documented by: [id number] Cosigned by: [id number] Admin: 03/15/22 21:18 Dose: Not Given Documented by: [id number] Admin: 03/15/22 17:27 Dose: 10 units Documented by: [id number] Cosigned by: [id number] Admin: 03/15/22 12:10 Dose: Not Given Documented by: [id number] Admin: 03/15/22 08:06 Dose: Not Given Documented by: [id number] Insulin Aspart (Insulin Aspart Per Unit) [address] SC [address] [place] [address] Stop: 03/16/22 00:01 Last Admin: 03/16/22 00:51 Dose: Not Given Documented by: [id number] Insulin Glargine (Insulin Glargine Solostar 100 Units/Ml 3 Ml Pen) 0 units SC [facility]; Protocol Stop: 04/14/22 20:59 Last Admin: 03/15/22 21:19 Dose: Not Given Documented by: [id number] Insulin Glargine (Insulin Glargine Solostar 100 Units/Ml 3 Ml Pen) 8 units SC [facility] Stop: 04/15/22 09:19 Last Admin: 03/16/22 10:02 Dose: 8 units Documented by: [id number] Cosigned by: [id number] Levetiracetam (Levetiracetam 500 Mg Tab) 500 mg PO BID [facility] Stop: 04/14/22 09:44 Last Admin: 03/16/22 08:44 Dose: 500 mg Documented by: [id number] Admin: 03/15/22 21:17 Dose: 500 mg Documented by: [id number] Admin: 03/15/22 10:20 Dose: 500 mg Documented by: [id number] Lisinopril (Lisinopril 20 Mg Tab) 20 mg PO [facility] Stop: 04/14/22 08:59 Last Admin: 03/16/22 08:45 Dose: 20 mg Documented by: [id number] Admin: 03/15/22 08:26 Dose: 20 mg Documented by: [id number] Lorazepam (Lorazepam 2 Mg/1 Ml Vial) Confirm Administered Dose 2 mg .ROUTE .STK- MED ONE Stop: 03/14/22 18:33 Last Admin: 03/14/22 20:52 Dose: Not Given Documented by: [id number] Lorazepam (Lorazepam 2 Mg/1 Ml Vial) Confirm Administered Dose 2 mg .ROUTE .STK- MED ONE Stop: 03/14/22 20:55 Last Admin: 03/14/22 21:01 Dose: Not Given Documented by: [id number] Lorazepam (Lorazepam 2 Mg/1 Ml Vial) 1 mg IV NOW [facility] Stop: 03/14/22 21:03 Last Admin: 03/14/22 23:03 Dose: 1 mg Documented by: [id number] Lorazepam (Lorazepam 2 Mg/1 Ml Vial) 1 mg IV NOW STA Stop: 03/15/22 23:18 Last Admin: 03/15/22 23:34 Dose: 1 mg Documented by: [id number] Miscellaneous (Remove Nicoderm Patch) 1 ea N/A DAILY@0859 [facility] Stop: 04/14/22 08:58 Last Admin: 03/15/22 08:27 Dose: Not Given Documented by: [id number] Miscellaneous (Remove Nicoderm Patch) 1 ea N/A DAILY@0859 [facility] Stop: 04/15/22 08:58 Last Admin: 03/16/22 08:51 Dose: 1 ea Documented by: [id number] Nicotine (Nicotine 14 Mg/24 Hr Patch) 14 mg TD QAM [facility] Stop: 04/14/22 08:59 Last Admin: 03/15/22 08:26 Dose: Not Given Documented by: [id number] Nicotine (Nicotine 14 Mg/24 Hr Patch) 14 mg TD QAM [facility] Stop: 04/14/22 16:59 Last Admin: 03/16/22 08:45 Dose: 14 mg Documented by: [id number] Admin: 03/15/22 17:27 Dose: 14 mg Documented by: [id number] Potassium Chloride (Potassium Chloride Crtab 20 Meq Tabcr) 40 meq PO NOW STA Stop: 03/15/22 07:41 Last Admin: 03/15/22 08:26 Dose: 40 meq Documented by: [id number] Description This is a 21 electrode EEG with a single channel dedicated to limited EKG. The electrodes were placed in accordance with the International 10-20 system. There is a posterior dominant rhythm of 11 Hz which is symmetrically distributed and attenuates with eye opening. There is a normal anterior to posterior organization. Photic stimulation is unremarkable. Hyperventilation was not performed. There is a moderate degree of admixed generalized polymorphic theta activity. There is intermittent movement artifact. There is no focal slowing. There are no epileptiform abnormalities. Interpretation Normal-appearing awake/drowsy EEG. A normal EEG does not completely exclude a diagnosis of epilepsy. Further clinical correlation may be needed. [facility] Procedure Codes Indication for Procedure (1) Seizure disorder: Neurology Neurology: [id number] EEG include record awake & drowsy
[2022-03-17] MEDS ORDERED: INSULIN GLARGINE SOLOSTAR 100 UNITS/ML 3 ML PEN SC SCH (09:00)
[2022-03-18 09:00] LABS: Marijuana Quant, GCMS Urine 436 ng/mL (<5)
== END 2022-03-16 16:29 | disposition home or self-care (01) | DRG 101 ==
LOC: ED 18:23 → 2E 23:16 → SUATTDRO 23:16 → 2E 03-15 00:05

== ENCOUNTER 2022-07-22 20:33 | Observation (INO) ==
[2022-07-22] MEDS ORDERED: SODIUM CHLORIDE 0.9% 1000ML 1,000 ML IV SCH (20:45)
[2022-07-22] MEDS ORDERED: LORazepam 2 MG/1 ML VIAL IV STA (20:48)
--- NOTE | 2022-07-22 20:50 | Emergency Department Note ---
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 He was unresponsive while he was having tonic-clonic movements per the [id number] and was confused and combative subsequently. On arrival to emergency department the patient is more redirectable. The patient's sister reports that he is frequently forgetting to take his medications and despite her attempts to text him/remind him this happens at times. She reports she texted him twice today but was unable to confirm that he had took taken his medications. He was last seen approximately 10 minutes prior to the episode. On arrival patient is no acute distress, afebrile with blood pressure 170/110s in the setting of his restlessness though he is redirectable. He is moving all extremities equally. He has dry mucous membranes though chronic bilateral lower extremity edema. Minor subacute abrasion to right elbow with range of motion intact. EKG without overt acute ischemia. Plain film of the right elbow was negative for fracture dislocation per my preliminary review. WBC and platelets within normal limits. H/H similar to prior values. Chemistry without metabolic acidosis. Creatinine 1.4 increased from recent though has had similar values in the past. Electrolytes without significant abnormality. AST and ALT slightly elevated at 113 and 73, respectively, nonspecific. CPK 4100 in the setting of the patient's seizure episode. COVID-19 RNA, GILES test was ne gative. The patient was loaded with 2000 mg of Keppra on arrival given it was suspected that he had missed his dosing today. He was additionally given 1 mg of IV Ativan for his agitation. Upon reevaluation the patient was resting comfortably. Given the patient's rhabdomyolysis, renal insufficiency in the setting of his prolonged seizure episode we will proceed with admission at this time. The patient's [id number] agrees with this plan. Case was discussed with GEOVANNA Pan hospitalist, who will evaluate the patient for admission. Triage Nursing notes reviewed and agree them. Prior medical records reviewed Vital Signs: reviewed and remarkable for hypertension. Differential diagnosis: Epilepsy, infection, hypoglycemia, electrolyte abnormalities, cardiac sources, intracerebral event, trauma, toxicologic, neurologic, syncope, as well as other pathologies. ER treatment provided: See below. Diagnostics interpreted by me: ECG: NSR, 61 bpm, no ectopy, LVH, TWI, no overt ST elevation or depression. Cardiac Monitoring: An order for continuous cardiac monitoring was placed and demonstrated NSR, 61 bpm, no ectopy. Laboratory studies: See below Imaging studies: See below Consultation(s): Case was discussed with GEOVANNA Pan hospitalist, who will evaluate the patient for admission. 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 He was unresponsive while he was having tonic-clonic movements per the ojkdjc-ue-sst and was confused and combative subsequently. On arrival to emergency department the patient is more redirectable. The patient's sister reports that he is frequently forgetting to take his medications and despite her attempts to text him/remind him this happens at times. She reports she texted him twice today but was unable to confirm that he had took taken his medications. He was last seen approximately 10 minutes prior to the episode. ROS: See above HPI for pertinent positives & negatives. A total of 10 systems reviewed and were otherwise negative. VITALS:See Below PHYSICAL EXAMINATION: GENERAL: Awake, alert, fatigue/restless-appearing, in no distress HENT: Normocephalic, atraumatic. Oropharynx with dry mucous membranes and otherwise unremarkable. EYES: Normal conjunctiva. Sclera non-icteric. NECK: Supple. No nuchal rigidity. FROM. No JVD. RESPIRATORY: Clear to auscultation. CARDIAC: Regular rate, normal rhythm. Extremities warm and well perfused. Pulses equal. ABDOMEN: Soft, non-distended. No tenderness to palpation. No rebound or guarding. No masses. RECTAL: Deferred. MUSCULOSKELETAL: Chest examination reveals no tenderness. The back is symmetrical on inspection without obvious abnormality. There is no CVA tenderness to palpation. Minor subacute abrasion to right elbow. FROM intact. LOWER EXTREMITIES: Calves are equal size bilaterally and non-tender. 1+ BLE pitting edema. No discoloration. NEURO: Mildly confused and restless/agitated but redirectable. No focal sensory or motor deficits noted. SKIN: No rash or jaundice noted. Laz Davidson MD Past Med/Surg History Medical History Chronic back pain Chronic hip pain Diabetes mellitus IDDM, Type 2 Hx of peripheral neuropathy feet Hyperlipidemia Hypertension Osteoarthritis Polysubstance abuse Hx heroin and cocaine abuse (denies use x 1 yr) Renal insufficiency Per records, pt denies Seizure disorder [place] [facility]. Per 03/27/22 office visit: "His most recent seizure-like episode occurred on March 14, 2022 in the setting of low blood s ugar, marijuana and Suboxone use" > placed on keppra 500mg po BID Surgical History History of surgical removal of meniscus of knee R/L Hx of repair of rotator cuff S/P total hip arthroplasty Left JOHANA (03/04/21): SAB at L4-L5 x 1. No issues reported on anesthesia progress note. Family History Brother Bipolar disorder Depression Diabetes Hypertension Father Diabetes Hypertension Kidney disease Myocardial infarction Denies family history of Ovarian cancer Prostate cancer Breast cancer Social History Smoking Status: Current every day smoker Tobacco Type: Cigarettes Age Started Using Tobacco: 16; Cigarettes Per Day: 15 cigs/day; Second Hand Exposure: Yes (SPOUSE SMOKES); Hx Alcohol Use: Yes Hx Substance Use: Yes Non-Prescribed Medications: Marijuana Non-Prescribed Medications Comment: vapes ~daily Substance Use Type Other:: NO ILLICIT DRUGS PAST YR PER YR/TAKES SUBOXONE DAILY Preferred Language: Indonesian Communication Ability: Effective Health Services Director Required: No Beliefs That Will Affect Care: None marital status: / Current Living Situation: Spouse current occupational status: unemployed How many Children do You have: 1 Feels Safe at Home: Yes Safety Concerns: Feels Safe At This Time Childhood Exposure to Second-Hand Smoke: No caffeine: Yes Dental Care, Regularly: No Physical Activity Frequency: Does not Exercise Physical Activity Frequency Comment: Exercise limited by physical condition. Seatbelt Use: sometimes Sunscreen Use: No Assistive Devices: Denture - Upper and Denture - Lower Allergies Allergies Allergy/AdvReac Type Severity Reaction Status Date / Time No Known Allergies Allergy Verified 07/22/22 20:47 Home Meds Home Medications Medication Instructions Recorded Confirmed escitalopram oxalate 20 mg tablet 20 mg PO QAM 02/25/22 07/22/22 insulin aspart U-100 100 unit/mL 10 - 15 unit subcut TID 02/25/22 07/22/22 (3 mL) subcutaneous pen (Novolog Flexpen U-100 Insulin aspart) buprenorphine 8 mg-naloxone 2 mg 2 tab sublingual QAM 03/14/22 07/22/22 sublingual tablet cyclobenzaprine 10 mg tablet 10 mg PO BID PRN Muscle Pain 05/05/22 07/22/22 diclofenac sodium 1 % topical gel 2 g topical QID PRN Pain 07/22/22 07/22/22 (Arthritis Pain (diclofenac)) furosemide 20 mg tablet 20 mg PO QAM PRN Fluid Retention 07/22/22 07/22/22 Previous Rx's Medication Instructions Recorded pen needle, diabetic 32 gauge x #100 ea 06/17/21 5/16" blood-glucose meter (Accu-Chek #1 ea 06/18/21 Guide Glucose Meter) blood-glucose meter (Blood Glucose #1 ea 11/27/21 Monitoring kit) lancets (Accu-Chek Fastclix Lancet #300 ea 02/12/22 Drum) flash glucose scanning reader #1 ea 03/16/22 (FreeStyle Evelyn 14 Day [place]) flash glucose sensor (FreeStyle #1 ea 03/16/22 Evelyn 14 Day Sensor kit) Accu-Chek Guide test strips (blood #300 ea 04/24/22 sugar diagnostic) atorvastatin 20 mg tablet 20 mg PO QAM #90 tabs 04/24/22 lisinopril 20 mg tablet 20 mg PO QAM #90 tabs 04/24/22 insulin glargine 100 unit/mL (3 15 unit (0.15 mL) subcut BID #15 mL 05/11/22 mL) subcutaneous pen (Basaglar KwikPen U-100 Insulin) levetiracetam 1,000 mg tablet 1,000 mg PO BID #60 tabs 07/03/22 Results & Data (ED) Vital Signs Vital Signs - 24 hr 07/22/22 20:37 07/22/22 20:44 07/22/22 20:44 Temperature 36.7 C 37.2 C Temperature Source Oral Oral Pulse Rate 73 Pulse Rate [Finger] 79 Pulse Rhythm [Finger] Pulse Strength [Finger] Respiratory Rate 17 19 Respiratory Effort / Characteristics Non-Labored Spontaneous Non-Labored Spontaneous Respiratory Depth Normal Normal Blood Pressure 172/117 H Blood Pressure [Right Arm] 172/117 H Blood Pressure Mean 135 Blood Pressure Mean [Right Arm] 135 Blood Pressure Position [Right Arm] Sitting Pulse Oximetry 96 96 96 Oxygen Delivery Method Room Air Room Air Room Air Oxygen Flow Rate 0 Sepsis Recent Fever Within 48 Hours No Sepsis New/Unexplained Change in Mental Status N/A Sepsis Action Taken by Nursing No Action Required 07/22/22 22:36 Temperature Temperature Source Pulse Rate Pulse Rate [Finger] 63 Pulse Rhythm [Finger] Regular Pulse Strength [Finger] Normal Respiratory Rate 17 Respiratory Effort / Characteristics Non-Labored Spontaneous Respiratory Depth Normal Blood Pressure Blood Pressure [Right Arm] 139/81 Blood Pressure Mean Blood Pressure Mean [Right Arm] 100 Blood Pressure Position [Right Arm] Sitting Pulse Oximetry 96 Oxygen Delivery Method Room Air Oxygen Flow Rate Sepsis Recent Fever Within 48 Hours Sepsis New/Unexplained Change in Mental Status Sepsis Action Taken by Nursing Laboratory Data Attestation: I reviewed the patient's lab results. Result diagrams: 07/22/22 20:20 07/22/22 20:20 Lab Results 07/22/22 07/22/22 07/22/22 Range/Units 20:20 20:20 23:19 WBC 7.14 (4.8-10.8) K/ul RBC 4.51 L (4.63-6.08) M/uL Hgb 12.6 L (14.0-18.0) g/dl Hct 40.4 (40.1-51.0) % MCV 89.6 (80.0-100.0) fL MCH 27.9 (25.0-34.0) pg MCHC 31.2 L (32.0-36.0) g/dL RDW Std Deviation 36.9 (36.4-46.3) fL RDW Coeff of Mayur 11.4 L (11.5-14.5) % Plt Count 218 (130-400) K/uL MPV 11.1 (9.4-12.4) fL Immature Gran % (Auto) 0.4 % Neut % (Auto) 64.5 % Lymph % (Auto) 24.1 % Menard % (Auto) 9.1 % Eos % (Auto) 1.3 % Baso % (Auto) 0.6 % Neut # (Auto) 4.61 (1.4-6.5) K/uL Lymph # (Auto) 1.72 (1.2-3.4) K/uL Menard # (Auto) 0.65 (0.24-0.82) K/uL Eos # (Auto) 0.09 (0-0.50) K/uL Baso # (Auto) 0.04 (0-0.2) K/uL Immature Gran # (Auto) 0.03 H (0.00-0.02) K/uL Sodium 135 L (136-145) mmol/L Potassium 4.2 (3.5-5.1) mmol/L Chloride 98 (98-107) mmol/L Carbon Dioxide 31 (21-32) mmol/L Anion Gap 6 (3-11) BUN 30 H (6-23) mg/dl Creatinine 1.41 H (0.6-1.4) mg/dl Est Cr Clr Drug Dosing Not Reportable Est GFR ( Amer) 63.2 ml/min Est GFR (Non-Af Amer) 54.5 ml/min BUN/Creatinine Ratio 21.3 H (10-20) Glucose 159 H (70-99(Fasting)) mg/dl POC Glucose 160 H (70-99) mg/dl Calcium 9.3 (8.5-10.1) mg/dl Phosphorus 3.8 (2.5-4.9) mg/dl Magnesium 2.0 (1.7-2.4) mg/dl Total Bilirubin 1.0 (0.2-1.0) mg/dl AST 113 H (13-39) U/L ALT 73 H (7-52) U/L Alkaline Phosphatase 73 (34-104) U/L Total Creatine Kinase 4166 H (30-223) U/L Total Protein 6.7 (6.0-8.3) gm/dl Albumin 4.3 (3.4-5.0) gm/dl Globulin 2.4 L (2.5-4.0) gm/dl Albumin/Globulin Ratio 1.8 (0.9-2) Administered Medications Lactated Ringer's (Lr) 1,000 mls @ 125 mls/hr IV .Q8H DINA Stop: 07/23/22 17:54 Last Admin: 07/23/22 03:46 Dose: 125 mls/hr Documented By: RADHA Discontinued Medications Sodium Chloride (Nss 1000ml) 1,000 mls @ 999 mls/hr IV .Q1H1M DINA Stop: 07/22/22 21:45 Last Infusion: 07/22/22 23:35 Dose: 0 mls/hr Documented By: JOSE ALFREDO Admin: 07/22/22 21:21 Dose: 999 mls/hr Documented By: JOSE ALFREDO Levetiracetam 2,000 mg/ Sodium (Chloride) 270 mls @ 999 mls/hr IV NOW STA Stop: 07/22/22 20:57 Last Infusion: 07/22/22 21:41 Dose: 0 mls/hr Documented By: JOSE ALFREDO Admin: 07/22/22 21:21 Dose: 999 mls/hr Documented By: JOSE ALFREDO Lorazepam (Lorazepam 2 Mg/1 Ml Vial) 1 mg IV NOW STA; Protocol Stop: 07/22/22 20:49 Last Admin: 07/22/22 20:57 Dose: 1 mg Documented By: JOSE ALFREDO Imaging Data Radiologist's Impression: STATRAD Preliminary Findings Only See Final Report For Complete Findings CT HEAD: No evidence of acute intracranial pathology. Small right choroid fissure cyst. Mild nonspecific white matter changes. Chronic left ethmoid sinusitis. Comparison made to prior head CT from March 14, 2022. Radiologist: Ella Slater MD Study ready at 22:15 and initial results transmitted at 22:30 Discharge Plan Visit Data Chief Complaint: Syncope Stated Complaint: SYNCOPE ED Provider: Laz Davidson Discharge Problem: Seizure, Renal insufficiency, Rhabdomyolysis, Noncompliance with medications Patient Disposition: Admitted As Inpatient Discharge Instructions Interventions: ED Discharge Assessment Last Done: 07/23/22 02:12
[2022-07-22 21:00] LABS: Basophils # (auto) 0.04 K/uL (0-0.2); Basophils % (auto) 0.6 %; Eosinophils # (auto) 0.09 K/uL (0-0.50); Eosinophils % (auto) 1.3 %; Hematocrit (blood only) 40.4 % (40.1-51.0); Hemoglobin 12.6 g/dl (14.0-18.0); Immature Granulocytes # (auto) 0.03 K/uL (0.00-0.02); Immature Granulocytes % (auto) 0.4 %; Lymphocytes # (auto) 1.72 K/uL (1.2-3.4); Lymphocytes % (auto) 24.1 %; Mean Corpuscular Hemoglobin 27.9 pg (25.0-34.0); Mean Corpuscular Hgb Conc 31.2 g/dL (32.0-36.0); Mean Corpuscular Volume 89.6 fL (80.0-100.0); Mean Platelet Volume 11.1 fL (9.4-12.4); Monocytes # (auto) 0.65 K/uL (0.24-0.82); Monocytes % (auto) 9.1 %; Neutrophils # (auto) 4.61 K/uL (1.4-6.5); Neutrophils % (auto) 64.5 %; Platelet Count 218 K/uL (130-400); RDW Coefficient of Variation 11.4 % (11.5-14.5); RDW Standard Deviation 36.9 fL (36.4-46.3); Red Blood Count 4.51 M/uL (4.63-6.08); White Blood Count 7.14 K/ul (4.8-10.8)
[2022-07-22 21:19] LABS: Anion Gap 6 (3-11); BUN Creatinine Ratio 21.3 (10-20); Blood Urea Nitrogen 30 mg/dl (6-23); Calcium 9.3 mg/dl (8.5-10.1); Carbon Dioxide 31 mmol/L (21-32); Chloride 98 mmol/L (98-107); Est GFR (African American) 63.2 ml/min; Est GFR (Non-African American) 54.5 ml/min; Glucose 159 mg/dl (70-99(Fasting)); Potassium 4.2 mmol/L (3.5-5.1); Sodium 135 mmol/L (136-145)
[2022-07-22 21:47] LABS: Alanine Aminotransferase 73 U/L (7-52); Albumin Globulin Ratio 1.8 (0.9-2); Albumin Level 4.3 gm/dl (3.4-5.0); Alkaline Phosphatase 73 U/L (34-104); Aspartate Aminotransferase 113 U/L (13-39); Creatine Kinase 4166 U/L (30-223); Globulin 2.4 gm/dl (2.5-4.0); Phosphorus 3.8 mg/dl (2.5-4.9); Total Protein 6.7 gm/dl (6.0-8.3)
--- NOTE | 2022-07-22 23:33 | History & Physical Report ---
Date of Service July 22, 2022 Assessment & Plan (1) Seizure: Plan: 56yo male with known seizure disorder presenting by EMS with seizure at home. Seizure partially witnessed by family. Extensive post-ictal period. Possibly secondary to medication non-adherence. -Observation to medical -Maintain seizure precautions -Resume Keppra 1000mg po BID -Ativan 2mg IV PRN seizure activity (2) Elevated CK: Plan: Patien twith elevated CK of 4166, most likely secondary to recent tonic-clonic seizure. Renal function is intact. -LR at 125mL/hr x 2 liters -Repeat CK in AM (3) Type 1 diabetes mellitus: Plan: Well controlled DM-I. Last ZusK2H=2.3 on 03/31/22. Patient follows with Endocrinology. Blood sugars checked by EMS in the field as well as ER have been adequate 150's - 160's. -Lantus 7u BID -ISS -Goal blood sugar 100 - 140 (4) Depression: Plan: Chronic. Patient recently lost his in November. He is currently living with his ytosqu-ef-cbq and brother-in law -Continue Lexapro 20mg po daily (5) Hypertension: Plan: Chronic -Hold Lisinopril for now -Repeat chemistry in AM to assess renal function (6) Polysubstance abuse: Plan: Patient denies recent substance use -Continue Suboxone -UTox sent in ER - will follow (7) Hyperlipidemia: Plan: Chronic -Continue Atorvastatin 20mg po daily F/E/N - LR at 125mL/hr x 2, electrolytes WNL, DM diet as tolerated Ppx - Low risk for DVT Code -Full Dispo - Observation to medical History of Present Illness Chief Complaint: Seizure Primary Care Provider: VANNESSA Wolfe Chung Riddle is a 56yo male with history of DM, HTN, HLP, Seizure disorder as well as prior opioid use disorder on Suboxone therapy presenting by EMS with suspected seizure. Patient is somnolent secondary to post-ictal state as well as administration of Ativan in the ER. History obtained by tvoqyi-mk-pgh who is at the bedside. Patient recently moved in with his kohrun-vh-trz and hfbgsvq-yx-yyh 2 weeks ago. His qodnqh-tg-iuw checks on him frequently, tries to ensure that he takes his medications and texts him frequently. Today she texted him to check in and did not receive a response. This afternoon the patient's nflmgcd-lt-bna was returning home from work. He was backing into the driveway and found the patient unresponsive in the driveway. He was rigid and unresponsive, similar to his prior seizure episodes. The seizure lasted several minutes which is longer than his typical seizures. Patient also unresponsive following the seizure for over 15 minutes which is also atypical. EMS was called. Blood sugar 150's. Patient was minimally responsive. Patient was brought to the ER. Uncertain duration of seizure - patient's niece did see the patient shortly before he was found seizing in the driveway. Ccnafj-pc-uis reports patient has not been taking care of himself for the last several days. Patient is currently getting his mother's house ready to sell and has been working a lot. Most likely missed his medications over the last three days. Uncertain if he has taken other substances. Patient is somnolent, arousable, answers some questions. Reports that he's "had better days". Denies chest pain, head trauma, CARVALHO, visual disturbance, SOB, abdominal pain, nausea, vomiting, diarrhea. He does have significant pain in his bilateral knees. He reports normal diet and adequate oral intake, did not eat anything today however. Reports normal sleep. Patient afebrile, HD stable in the ER. Combative, given Ativan ER Course: Keppra Ativan NSS Allergies Allergy/AdvReac Type Severity Reaction Status Date / Time No Known Allergies Allergy Verified 07/22/22 20:47 Home Medications Medication Instructions Recorded Confirmed Type pen needle, diabetic 32 gauge x #100 ea 06/17/21 07/22/22 Rx 5/16" blood-glucose meter (Accu-Chek #1 ea 06/18/21 07/22/22 Rx Guide Glucose Meter) blood-glucose meter (Blood Glucose #1 ea 11/27/21 07/22/22 Rx Monitoring kit) lancets (Accu-Chek Fastclix Lancet #300 ea 02/12/22 07/22/22 Rx Drum) escitalopram oxalate 20 mg tablet 20 mg PO QAM 02/25/22 07/22/22 History insulin aspart U-100 100 unit/mL 10 - 15 unit subcut TID 02/25/22 07/22/22 History (3 mL) subcutaneous pen (Novolog Flexpen U-100 Insulin aspart) buprenorphine 8 mg-naloxone 2 mg 2 tab sublingual QAM 03/14/22 07/22/22 History sublingual tablet flash glucose scanning reader #1 ea 03/16/22 07/22/22 Rx (FreeStyle Evelyn 14 Day [place]) flash glucose sensor (FreeStyle #1 ea 03/16/22 07/22/22 Rx Evelyn 14 Day Sensor kit) Accu-Chek Guide test strips (blood #300 ea 04/24/22 07/22/22 Rx sugar diagnostic) atorvastatin 20 mg tablet 20 mg PO QAM #90 tabs 04/24/22 07/22/22 Rx lisinopril 20 mg tablet 20 mg PO QAM #90 tabs 04/24/22 07/22/22 Rx cyclobenzaprine 10 mg tablet 10 mg PO BID PRN Muscle Pain 05/05/22 07/22/22 History insulin glargine 100 unit/mL (3 15 unit (0.15 mL) subcut BID #15 mL 05/11/22 07/22/22 Rx mL) subcutaneous pen (Basaglar KwikPen U-100 Insulin) levetiracetam 1,000 mg tablet 1,000 mg PO BID #60 tabs 07/03/22 07/22/22 Rx diclofenac sodium 1 % topical gel 2 g topical QID PRN Pain 07/22/22 07/22/22 History (Arthritis Pain (diclofenac)) furosemide 20 mg tablet 20 mg PO QAM PRN Fluid Retention 07/22/22 07/22/22 History Past Med/Surg History Medical History Chronic back pain Chronic hip pain Diabetes mellitus IDDM, Type 2 Hx of peripheral neuropathy feet Hyperlipidemia Hypertension Osteoarthritis Polysubstance abuse Hx heroin and cocaine abuse (denies use x 1 yr) Renal insufficiency Per records, pt denies Seizure disorder Following with [facility] neurology. Per 03/27/22 office visit: "His most recent seizure-like episode occurred on March 14, 2022 in the setting of low blood sugar, marijuana and Suboxone use" > placed on keppra 500mg po BID Surgical History History of surgical removal of meniscus of knee Hx of repair of rotator cuff S/P total hip arthroplasty Family History Brother Bipolar disorder Depression Diabetes Hypertension Father Diabetes Hypertension Kidney disease Myocardial infarction Denies family history of Ovarian cancer Prostate cancer Breast cancer Social History Smoking Status: Current every day smoker Tobacco Type: Cigarettes Age Started Using Tobacco: 16; Cigarettes Per Day: 15 cigs/day; Second Hand Exposure: Yes (SPOUSE SMOKES); Hx Alcohol Use: Yes Hx Substance Use: Yes Non-Prescribed Medications: Marijuana Non-Prescribed Medications Comment: vapes ~daily Substance Use Type Other:: NO ILLICIT DRUGS PAST YR PER YR/TAKES SUBOXONE DAILY Preferred Language: [place] Verdean Communication Ability: Effective 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 Seatbelt Use: sometimes Sunscreen Use: No Assistive Devices: Denture - Upper and Denture - Lower Review of Systems Review of Systems: All systems reviewed & are unremarkable except as noted in HPI & below Physical Exam Physical Exam: General: patient resting comfortably, NAD, non-toxic in appearance, AA&O x 4 Skin: warm, dry, intact, no rashes or lesions HEENT: NC/AT, PERRL, EOMI, anicteric sclera, conjunctiva without injection, external ear normal to inspection and nontender, nares patent, moist mucus membranes, dentition intact, no oropharyngeal lesions, neck supple, trachea midline, no LAD, no thyromegaly, no JVD Heart: +S1/S2, regular, no m/r/g Lungs: equal air entry bilaterally, no rales/rhonchi/wheezes Abd: +BS, soft, NT/ND, no masses/organomegaly/ascites Ext: warm, 2+ pulses in UE/LE bilaterally, no clubbing/cyanosis or edema Neuro: nonfocal, patient AA&O x 4, speech intact, no facial droop, moving all extremities on command with equal strength 5/5 Results & Data Results & Data ([facility]) Vital Signs (Past 12 Hours) Vital Signs Temp Pulse Pulse Resp BP BP Pulse Ox 07/22/22 22:36 63 17 139/81 96 07/22/22 20:44 37.2 C 79 19 172/117 H 96 07/22/22 20:44 96 07/22/22 20:37 36.7 C 73 17 172/117 H 96 O2 Del Method O2 Flow Rate 07/22/22 22:36 Room Air 07/22/22 20:44 Room Air 07/22/22 20:44 Room Air 0 07/22/22 20:37 Room Air Laboratory Results Laboratory Results WBC 7.14 K/ul (4.8-10.8) 07/22/22 20:20 RBC 4.51 M/uL (4.63-6.08) L 07/22/22 20:20 Hgb 12.6 g/dl (14.0-18.0) L 07/22/22 20:20 Hct 40.4 % (40.1-51.0) 07/22/22 20:20 MCV 89.6 fL (80.0-100.0) 07/22/22 20:20 MCH 27.9 pg (25.0-34.0) 07/22/22 20:20 MCHC 31.2 g/dL (32.0-36.0) L 07/22/22 20:20 RDW Std Deviation 36.9 fL (36.4-46.3) 07/22/22 20:20 RDW Coeff of Mayur 11.4 % (11.5-14.5) L 07/22/22 20:20 Plt Count 218 K/uL (130-400) 07/22/22 20:20 MPV 11.1 fL (9.4-12.4) 07/22/22 20:20 Immature Gran % (Auto) 0.4 % 07/22/22 20:20 Neut % (Auto) 64.5 % 07/22/22 20:20 Lymph % (Auto) 24.1 % 07/22/22 20:20 Cowley % (Auto) 9.1 % 07/22/22 20:20 Eos % (Auto) 1.3 % 07/22/22 20:20 Baso % (Auto) 0.6 % 07/22/22 20:20 Neut # (Auto) 4.61 K/uL (1.4-6.5) 07/22/22 20:20 Lymph # (Auto) 1.72 K/uL (1.2-3.4) 07/22/22 20:20 Cowley # (Auto) 0.65 K/uL (0.24-0.82) 07/22/22 20:20 Eos # (Auto) 0.09 K/uL (0-0.50) 07/22/22 20:20 Baso # (Auto) 0.04 K/uL (0-0.2) 07/22/22 20:20 Immature Gran # (Auto) 0.03 K/uL (0.00-0.02) H 07/22/22 20:20 Sodium 135 mmol/L (136-145) L 07/22/22 20:20 Potassium 4.2 mmol/L (3.5-5.1) 07/22/22 20:20 Chloride 98 mmol/L (98-107) 07/22/22 20:20 Carbon Dioxide 31 mmol/L (21-32) 07/22/22 20:20 Anion Gap 6 (3-11) 07/22/22 20:20 BUN 30 mg/dl (6-23) H 07/22/22 20:20 Creatinine 1.41 mg/dl (0.6-1.4) H 07/22/22 20:20 Est Cr Clr Drug Dosing Not Reportable 07/22/22 20:20 Est GFR ( Amer) 63.2 ml/min 07/22/22 20:20 Est GFR (Non-Af Amer) 54.5 ml/min 07/22/22 20:20 BUN/Creatinine Ratio 21.3 (10-20) H 07/22/22 20:20 Glucose 159 mg/dl (70-99(Fasting)) H 07/22/22 20:20 POC Glucose 160 mg/dl (70-99) H 07/22/22 23:19 Calcium 9.3 mg/dl (8.5-10.1) 07/22/22 20:20 Phosphorus 3.8 mg/dl (2.5-4.9) 07/22/22 20:20 Magnesium 2.0 mg/dl (1.7-2.4) 07/22/22 20:20 Total Bilirubin 1.0 mg/dl (0.2-1.0) 07/22/22 20:20 AST 113 U/L (13-39) H 07/22/22 20:20 ALT 73 U/L (7-52) H 07/22/22 20:20 Alkaline Phosphatase 73 U/L (34-104) 07/22/22 20:20 Total Creatine Kinase 4166 U/L (30-223) H 07/22/22 20:20 Total Protein 6.7 gm/dl (6.0-8.3) 07/22/22 20:20 Albumin 4.3 gm/dl (3.4-5.0) 07/22/22 20:20 Globulin 2.4 gm/dl (2.5-4.0) L 07/22/22 20:20 Albumin/Globulin Ratio 1.8 (0.9-2) 07/22/22 20:20 SARS-CoV-2, RNA, NAAT NEGATIVE (NEGATIVE) 07/22/22 Unknown PG Care Time/CCT Total # of Minutes Spent Total Time Spent with Patient: Total time spent is greater than 50% in coordination of care (as documented) at patient's floor/unit and/or counseling patient: Coding Level of Care Code INT OBSERVATION CARE 70M LVL 3 Diagnoses Seizure R56.9 Elevated CK R74.8 Type 1 diabetes mellitus E10.9 Depression F32.A Hypertension I10 Polysubstance abuse F19.10 Hyperlipidemia E78.5
[2022-07-23] MEDS ORDERED: GLUCOSE 10 TAB/TUBE PO PRN (01:55)
[2022-07-23] MEDS ORDERED: GLUCOSE 40% GEL 15 GM TUBE PO PRN (01:55)
[2022-07-23] MEDS ORDERED: DICLOFENAC SOD 1% GEL 100 GM TUBE EXT PRN (01:55)
[2022-07-23] MEDS ORDERED: CARBOHYDRATES FOR HYPOGLYCEMIA PO PRN (01:55)
[2022-07-23] MEDS ORDERED: GLUCAGON FOR INJ 1 MG VIAL SQ PRN (01:55)
[2022-07-23] MEDS ORDERED: DEXTROSE 50% 50 ML SYRINGE IV PRN (01:55)
[2022-07-23] MEDS ORDERED: CYCLOBENZAPRINE HCL 10 MG TAB PO PRN (01:55)
[2022-07-23] MEDS ORDERED: LORazepam 2 MG/1 ML VIAL IV PRN (01:55)
[2022-07-23] MEDS ORDERED: ACETAMINOPHEN 325 MG TAB PO PRN (01:55)
[2022-07-23] MEDS: LACTATED RINGER'S 1,000 ML IV SCH ×2 (02:44→03:46)
[2022-07-23 06:40] LABS: Hematocrit (blood only) 38.8 % (40.1-51.0); Hemoglobin 12.1 g/dl (14.0-18.0); Mean Corpuscular Hemoglobin 27.9 pg (25.0-34.0); Mean Corpuscular Hgb Conc 31.2 g/dL (32.0-36.0); Mean Corpuscular Volume 89.4 fL (80.0-100.0); Mean Platelet Volume 11.6 fL (9.4-12.4); Platelet Count 171 K/uL (130-400); RDW Coefficient of Variation 11.2 % (11.5-14.5); RDW Standard Deviation 36.3 fL (36.4-46.3); Red Blood Count 4.34 M/uL (4.63-6.08); White Blood Count 5.15 K/ul (4.8-10.8)
[2022-07-23 06:53] LABS: Basophils # (auto) 0.03 K/uL (0-0.2); Basophils % (auto) 0.6 %; Eosinophils # (auto) 0.12 K/uL (0-0.50); Eosinophils % (auto) 2.3 %; Immature Granulocytes # (auto) 0.01 K/uL (0.00-0.02); Immature Granulocytes % (auto) 0.2 %; Lymphocytes # (auto) 1.77 K/uL (1.2-3.4); Lymphocytes % (auto) 34.4 %; Monocytes # (auto) 0.47 K/uL (0.24-0.82); Monocytes % (auto) 9.1 %; Neutrophils # (auto) 2.75 K/uL (1.4-6.5); Neutrophils % (auto) 53.4 %
[2022-07-23 07:09] LABS: BUN Creatinine Ratio 24.8 (10-20); Calcium 8.8 mg/dl (8.5-10.1); Creatinine Clr Calc Pharmacy 93.9 ml/min; Est GFR (African American) 94.6 ml/min; Est GFR (Non-African American) 81.6 ml/min; Potassium 3.9 mmol/L (3.5-5.1)
[2022-07-23 07:21] LABS: Albumin Level 3.6 gm/dl (3.4-5.0); Bilirubin Direct 0.1 mg/dl (0-0.2); Total Protein 5.8 gm/dl (6.0-8.3)
[2022-07-23] MEDS ORDERED: INSULIN ASPART PER UNIT SC SCH (07:30)
--- NOTE | 2022-07-23 08:44 | XRay Report ---
RIGHT ELBOW 3 VIEWS CLINICAL HISTORY: Fall. Right elbow pain. FINDINGS: 3 views of the right elbow are obtained. No prior studies are available for comparison at t he time of dictation. The skeletal structures are well mineralized. No fracture is seen. The joint sp aces are maintained. There is a large enthesophyte at the triceps insertion. Mild spurring is seen al ricardo the anterior aspect of the joint space. There is no effusion. Dorsal soft tissue swelling is note d. IMPRESSION: Dorsal soft tissue swelling with no fracture identified. Electronically signed by: Dmitri Farrell M.D. 07/23/2022 8:43 AM
[2022-07-23] MEDS ORDERED: LANTUS PER UNIT CHARGE SQ SCH (09:00)
[2022-07-23] MEDS ORDERED: BUPRENORPHINE/NALOXONE 8/2 MG TAB SL SCH (09:00)
[2022-07-23] MEDS ORDERED: levETIRAcetam 500 MG TAB PO SCH (09:00)
[2022-07-23] MEDS ORDERED: ATORVASTATIN 20 MG TAB PO SCH (09:00)
[2022-07-23] MEDS ORDERED: ESCITALOPRAM OXALATE 20 MG TAB PO SCH (09:00)
--- NOTE | 2022-07-23 09:21 | CT Scan Report ---
CT head/brain wo con CLINICAL HISTORY: Fall seizure Technique: Contiguous axial CT images of the head were acquired from the base of the skull to the thais dulce without intravenous contrast administration. Images were viewed in brain, subdural and bone [facility] . Automated dose lowering techniques and/or adjustment according to patient size were utilized for this exam. Comparison: None available at the time of this dictation. Findings: The ventricles, basal cisterns, and cerebral sulci are normal. There is no acute intracranial hemorrh age or evidence of acute territorial infarction. Neither mass effect, shift of the midline structures , nor abnormal extra-axial fluid collections are shown. Incidental note is made of a small choroidal fissure cyst. A mucous retention cyst is in the left maxillary sinus. Mild ethmoid sinus disease as well. The orbit s appear normal. There are no acute fractures of the calvaria or scalp swelling. Impression: No acute intracranial hemorrhage, no evidence of acute territorial infarction or other acute intracra nial disease process. ACT 112: Negative or not required by law. Electronically signed by: Navneet Treviño M.D. 07/23/2022 9:20 AM
[2022-07-23 11:20] LABS: Appearance Urine Clear (Clear); Bacteria Urine Automated Negative (Negative); Bilirubin Urine Negative (Negative); Blood Urine Negative (Negative); Cast Urine Automated 0 /lpf (0-5); Color Urine Yellow; Epithelial Cell Urine Auto 0-5 /lpf (0-5); Glucose Urine UA Trace (Negative); Ketones Urine Trace (Negative); Leukocyte Esterase Urine Negative (Negative); Nitrite Urine Negative (Negative); Protein Urine 2+ (Negative); RBC Urine Automated 0-4 /hpf (0-4); Specific Gravity Urine 1.019 (1.000-1.030); Urobilinogen Urine Negative (Negative); WBC Urine Automated 0 /hpf (0-5); pH Urine 5.5 (4.5-7.5)
[2022-07-23 11:45] LABS: Amphetamines+Metham, Urine Pos (Neg); Barbiturates, Urine Neg (Neg); Benzodiazepine, Urine Neg (Neg); Cocaine, Urine Neg (Neg); MDMA (Ecstacy), Urine Pos (Neg); Methadone, Urine Neg (Neg); Opiate, Urine Pos (Neg); Phencyclidine, Urine Neg (Neg)
--- NOTE | 2022-07-23 16:13 | Electrocardiogram Report ---
Test Reason : Blood Pressure : / mmHG Vent. Rate : 082 BPM Atrial Rate : 082 BPM P-R Int : 150 ms QRS Dur : 084 ms QT Int : 380 ms P-R-T Axes : 065 -38 -31 degrees QTc Int : 443 ms Normal sinus rhythm with sinus arrhythmia Left axis deviation Nonspecific T wave abnormality Lateral leads Abnormal ECG When compared with ECG of 01-JUL-2022 17:31, Nonspecific T wave abnormality now evident in Lateral leads Confirmed by Wilberto Epperson ([id number]) on 07/23/2022 4:13:15 PM Referred By: REFERRED SELF Confirmed By:Wilberto Epperson
--- NOTE | 2022-07-23 16:24 | Electrocardiogram Report ---
Test Reason : Blood Pressure : / mmHG Vent. Rate : 061 BPM Atrial Rate : 061 BPM P-R Int : 146 ms QRS Dur : 094 ms QT Int : 436 ms P-R-T Axes : 054 -36 -34 degrees QTc Int : 438 ms Normal sinus rhythm Left axis deviation Minimal voltage criteria for LVH, may be normal variant Poor R wave progression, consider anterior [place] vs. lead placement vs. LVH Diffuse Nonspecific ST abnormality Abnormal ECG When compared with ECG of 22-JUL-2022 20:26, No significant change was found Confirmed by Wilberto Epperson ([id number]) on 07/23/2022 4:24:09 PM Referred By: REFERRED SELF Confirmed By:Wilberto Epeprson
--- NOTE | 2022-07-23 17:40 | Discharge Summary ---
Date of Service July 23, 2022 Admission HPI Per Admitting Provider Chung Riddle is a 56yo male with history of DM, HTN, HLP, Seizure disorder as well as prior opioid use disorder on Suboxone therapy presenting by EMS with suspected seizure. Patient is somnolent secondary to post-ictal state as well as administration of Ativan in the ER. History obtained by xtgths-xd-wkt who is at the bedside. Patient recently moved in with his mnljot-il-rff and cpnkzlx-oh-pvm 2 weeks ago. His uapnek-kr-spg checks on him frequently, tries to ensure that he takes his medications and texts him frequently. Today she texted him to check in and did not receive a response. This afternoon the patient's vgndbyn-xc-hun was returning home from work. He was backing into the driveway and found the patient unresponsive in the driveway. He was rigid and unresponsive, similar to his prior seizure episodes. The seizure lasted several minutes which is longer than his typical seizures. Patient also unresponsive following the seizure for over 15 minutes which is also atypical. EMS was called. Blood sugar 150's. Patient was minimally responsive. Patient was brought to the ER. Uncertain duration of seizure - patient's niece did see the patient shortly before he was found seizing in the driveway. Ybnuhu-zy-njh reports patient has not been taking care of himself for the last several days. Patient is currently getting his mother's house ready to sell and has been working a lot. Most likely missed his medications over the last three days. Uncertain if he has taken other substances. Patient is somnolent, arousable, answers some questions. Reports that he's "had better days". Denies chest pain, head trauma, CARVALHO, visual disturbance, SOB, abdominal pain, nausea, vomiting, diarrhea. He does have significant pain in his bilateral knees. He reports normal diet and adequate oral intake, did not eat anything today however. Reports normal sleep. Patient afebrile, HD stable in the ER. Combative, given Ativan ER Course: Keppra Ativan NSS Principal Diagnosis seizure like activity post ictal state Discharge Exam The patient appeared stable Vital signs as documented. Lungs are clear to auscultation and appear unlabored Cardiac exam, Rhythm is regular.. No murmurs, rubs or gallops. Abdominal exam reveals normal bowel sounds, soft non tender, no masses Neurologic exam is alert and oriented, no focal loss of strength or sensation Skin is without bruises or rashes Psychologically is without concerns for anxiety or depression. Discharge Data Allergies Allergy/AdvReac Type Severity Reaction Status Date / Time No Known Allergies Allergy Verified 07/22/22 20:47 Consultations 07/22/22 22:42 ED Decision to Admit Stat Ordered Studies 07/22/22 20:41 CT head/brain wo con Urgent Hospital Course (1) Seizure: 56yo male with known seizure disorder presenting by EMS with seizure like activity at home. Seizure partially witnessed by family. Extensive post-ictal period. -Resume Keppra 1000mg po BID pt states does not need refil (2) Elevated CK: elevated CK of 4166, most likely secondary to recent tonic-clonic seizure. Renal function is intact. -improved (3) Type 1 diabetes mellitus: Well controlled DM-I. Last TlsS6F=9.3 on 03/31/22. Patient follows with Endocrinology. Blood sugars checked by EMS in the field as well as ER have been adequate 150's - 160's. (4) Depression: Chronic. Patient recently lost his in November. He is currently living with his clkjvf-cv-unx and brother-in law -Continue Lexapro 20mg po daily (5) Hypertension: Chronic -resume lisinopril also for renal protective affects (6) Polysubstance abuse: Patient denies recent substance use -Continue Suboxone (7) Hyperlipidemia: Chronic -Continue Atorvastatin 20mg po daily Total Time Total Time Spent Total Time Spent (In Minutes): It required greater than 30 minutes to prepare this patient for discharge Discharge Plan Discharge Items Patient Disposition: Home - Self-Care Reason For Visit: SEIZURE Discharge Diagnosis: seizure like activity Activity: Resume your previous activity Non-emergency contact: Primary Care Provider Call non-emergency contact if: your symptoms worsen Follow-up/Referrals: Mine Maxwell CRNP [Primary Care Provider] - Diet: Carb Count or DM1 Addtl Attending Provider Instructions: please get plenty of rest and take your medicines regularly, please contact Dr Blount and update his office on your ER visit you have a history of seizures and had a episode that may have gela seizure like. Given your surgery is in august, I would think it is reasonable to observe until that time and consider keeping your surgery date Pending Studies at Discharge: No Stand-Alone Forms: [facility], Smoking Cessation Medications and DC Order Prescriptions: Continued (DME) pen needle, diabetic 32 gauge x 5/16" needle See Rx Instructions .Route Qty: 100 5RF Rx Instructions: Use four times daily with insulin pens Dx:E11.9 (DME) blood-glucose meter [Accu-Chek Guide Glucose Meter] Misc See Rx Instructions .ROUTE .MEDSUPPLY Qty: 1 0RF Rx Instructions: test 4x daily DX e11.65 (DME) lancets [Accu-Chek Fastclix Lancet Drum] Misc See Rx Instructions .ROUTE .MEDSUPPLY Qty: 300 5RF Rx Instructions: Test three times daily atorvastatin 20 mg tablet 20 mg PO QAM Qty: 90 3RF lisinopril 20 mg tablet 20 mg PO QAM Qty: 90 3RF (DME) Accu-Chek Guide test strips Strip See Rx Instructions .ROUTE .MEDSUPPLY Qty: 300 12RF Rx Instructions: Test three times daily levetiracetam 1,000 mg tablet 1,000 mg PO BID Qty: 60 5RF (DME) blood-glucose meter [Blood Glucose Monitoring] Kit See Rx Instructions .Route Qty: 1 0RF Rx Instructions: check 4-5 times a day escitalopram oxalate 20 mg tablet 20 mg PO QAM insulin aspart U-100 [Novolog Flexpen U-100 Insulin] 100 unit/mL (3 mL) insulin pen 10 - 15 unit SQ TID Rx Instructions: PER PT "ONLY TAKE IF NEEDED". PER SLLIDING SCALE insulin glargine [Basaglar KwikPen U-100 Insulin] 100 unit/mL (3 mL) insulin pen 15 unit SUBCUT BID Qty: 15 4RF buprenorphine-naloxone 8-2 mg tablet, sublingual 2 tab SUBLINGUAL QAM (DME) FreeStyle Evelyn 14 Day Sensor Kit See Rx Instructions .Route Qty: 1 0RF Rx Instructions: As directed (DME) FreeStyle Evelyn 14 Day [place] Misc See Rx Instructions .Route Qty: 1 0RF Rx Instructions: As directed cyclobenzaprine 10 mg tablet 10 mg PO BID PRN (Reason: Muscle Pain) diclofenac sodium [Arthritis Pain (diclofenac)] 1 % gel 2 g topical QID PRN (Reason: Pain) Rx Instructions: apply to knees or foot 4 times a day furosemide 20 mg tablet 20 mg PO QAM PRN (Reason: Fluid Retention) Discharge Orders: Discharge Order (Routine); Ordered 07/23/22 Ordered By: Kolton Lora Admission Data Admit Date/Time: 07/22/22 23:33 Attending Provider: Kolton Lora Admit Provider: Kenia Fang Primary Care Provider: Mine Maxwell Other Providers: Kenia Fang Other Interventions: Discharge Summary Assessment (RN) Last Done: 07/23/22 12:10 Coding Level of Care Code D/C DAY MANAGEMENT >30 MINS Diagnoses Seizure R56.9 Elevated CK R74.8 Type 1 diabetes mellitus E10.9 Depression F32.A Hypertension I10 Polysubstance abuse F19.10 Hyperlipidemia E78.5
[2022-07-31 07:42] LABS: Amphetamine Urine, Confirm 6030 ng/mL (<250); Codeine Urine NEGATIVE ng/mL (<50); Hydrocodone Urine NEGATIVE ng/mL (<50); Hydromor Urine NEGATIVE ng/mL (<50); MDA negative; MDEA negative; MDMA (Ecstasy) Urine, Confirm negative; Marijuana Quant, GCMS Urine 131 ng/mL (<5); Methamphetamine, Ur Confirm >15000 ng/mL (<250); Morphine Urine 2890 ng/mL (<50); Norhydrocodone Conf Ur NEGATIVE ng/mL (<50); Noroxycodone Urine NEGATIVE ng/mL (<50); Oxycodone Urine NEGATIVE ng/mL (<50); Oxymorph Urine NEGATIVE ng/mL (<50)
== END 2022-07-23 12:17 | disposition home or self-care (01) ==
LOC: ED 20:33 → EDINP 20:33 → SUATTDRO 23:33 → EDINP 07-23 02:12

== ENCOUNTER 2023-03-16 13:52 | Observation (INO) ==
[2023-03-16] MEDS ORDERED: SODIUM CHLORIDE 0.9% 1000ML 2,000 ML IV ONE (14:01)
--- NOTE | 2023-03-16 14:06 | Emergency Department Note ---
Impression & Plan Status epilepticus, Hyperglycemia, Elevated troponin ED Provider Note NAME: NGA SHAVER AGE: 57 SEX: M : 1965 ARRIVES VIA: Ambulance INFORMANT: Patient ED PROVIDER(S): Blake Deluna DO CHIEF COMPLAINT: seizure HPI: Patient is a 57-year-old male who presents to the ER for seizure. Patient has had a witnessed seizure off and on for the past 1.5 hours. He did fall down 5 steps. He denies any neck pain. No chest pain or shortness of breath. He notes he does take seizure medications but is not sure when he takes. No other exacerbating or remitting factors. Family per EMS notes that he has never had seizures this bad before. PAST MEDICAL HISTORY:See Below PAST SURGICAL HISTORY:See Below FAMILY HISTORY:See Below SOCIAL HISTORY:See Below HOME MEDICATIONS:See Below ALLERGIES:See Below VITALS:See Below PHYSICAL EXAMINATION: GENERAL: Lying in bed, disheveled, awakens to voice EYE EXAM: normal conjunctiva. PERRL and EOM's grossly intact. OROPHARYNX: no exudate, no erythema, lips, buccal mucosa, and tongue normal and mucous membranes are moist NECK: supple, no nuchal rigidity, no adenopathy, non-tender LUNGS: Clear to auscultation. Normal chest wall mechanics HEART: no murmurs, S1 normal and S2 normal ABDOMEN: abdomen soft, non-tender, normo-active bowel sounds, no masses, no rebound or guarding. BACK: Back is symmetrical on inspection and there is no deformity, no midline tenderness, no CVA tenderness. SKIN: no rashes and no bruising UPPER EXTREMITIES: upper extremities are grossly normal. LOWER EXTREMITIES: No pitting edema. NEURO EXAM: Normal sensorium, cranial nerves II-XII intact, normal speech, no weakness of arms, no weakness of legs. No drift. Finger to nose intact. Gross sensation intact. MEDICAL DECISION MAKING: Patient is a 57-year-old male who presents ER for above-stated complaint. IV was established blood work is obtained. Labs show no significant leukocytosis. Mild anemia. BMP was fairly unremarkable with exception of a glucose of 319. Patient was given IV fluids and insulin and trended down to 130. LFTs were unremarkable. Troponin mildly elevated in the 20s. Lipase at 100. UA was clean. Tox was positive for marijuana and ecstasy. Alcohol was negative. CT angios of the head and neck were negative. Patient was given IV fluids. Updated bedside. He was given 2 g of IV Keppra. No seizures while in the ER. Admitted for further work-up. Triage Nursing notes reviewed. Limited review of prior medical records performed Vital Signs: reviewed and remarkable for HTN and tachy Differential diagnosis: Differential diagnoses include major intracranial, cervical, spinal, thoracic, abdominal, pelvic and neurologic injury. Fracture, contusion, sprain, strain, laceration, abrasions included as well. ER treatment provided: See below Diagnostics interpreted by me include EKG and cardiac monitoring as listed below: -Cardiac Monitoring: An order was placed for continuous cardiac monitoring. The monitor shows a rate of 80 with sinus rhythm. -ECG: Sinus rhythm rate of 97 Left axis No PVCs QTc 419 -Laboratory studies:Interpreted by me as stated above in MDM and shown below. Imaging studies: Xrays: As interpreted by me: Portable AP upright 1 view of the chest shows no focal infiltrate CTs show: CTs of the head cervical spine chest abdomen pelvis showed no acute pathology Consultation(s): Discussed with the hospitalist Dr. Gardner for further evaluation and management Procedures:none Critical Care: None Past Med/Surg History Medical History Anxiety Chronic back pain Chronic hip pain Depression Diabetes mellitus Hx of peripheral neuropathy Hyperlipidemia Hypertension Osteoarthritis Renal insufficiency Seizure disorder Surgical History History of surgical removal of meniscus of knee Hx of repair of rotator cuff S/P total hip arthroplasty Family History Brother Bipolar disorder Depression Diabetes Hypertension Father Diabetes Hypertension Kidney disease Myocardial infarction Denies family history of Ovarian cancer Prostate cancer Breast cancer Social History Smoking Status: Current some day smoker Tobacco Type: Cigarettes Age Started Using Tobacco: 16; Cigarettes Per Day: 12 CIGS A DAY; Second Hand Exposure: No; Hx Alcohol Use: Yes Hx Substance Use: Yes (Hx heroin and cocaine abuse (denies use x 2 yr)) Non- Prescribed Medications: Marijuana Non-Prescribed Medications Comment: vapes ~daily Substance Use Type Other:: MARIJUANA INH LESS THAN 2-3 X A WEEK-NO CARD Preferred Language: Tristanian Communication Ability: Effective Facilities Maintenance Supervisor Required: No Beliefs That Will Affect Care: None marital status: / Current Living Situation: Family current occupational status: unemployed and disabled How many Children do You have: 1 Feels Safe at Home: Yes Childhood Exposure to Second-Hand Smoke: No caffeine: Yes Dental Care, Regularly: No Physical Activity Frequency: Does not Exercise Physical Activity Frequency Comment: Exercise limited by physical condition. Seatbelt Use: sometimes Sunscreen Use: No Assistive Devices: Denture - Upper and Denture - Lower Allergies Allergies Allergy/AdvReac Type Severity Reaction Status Date / Time No Known Allergies Allergy Verified 03/16/23 14:55 Home Meds Home Medications Medication Instructions Recorded Confirmed buprenorphine 8 mg-naloxone 2 mg 2 tab sublingual QAM 03/14/22 03/16/23 sublingual tablet insulin aspart U-100 100 unit/mL 6 unit subcut TID 03/15/23 03/16/23 (3 mL) subcutaneous pen (Novolog FlexPen U-100 Insulin aspart) insulin glargine 100 unit/mL (3 26 unit subcut QAM 03/15/23 03/16/23 mL) subcutaneous pen (Basaglar KwikPen U-100 Insulin) Previous Rx's Medication Instructions Recorded blood-glucose meter (Accu-Chek #1 ea 06/18/21 Guide Glucose Meter) blood-glucose meter (Blood Glucose #1 ea 11/27/21 Monitoring kit) flash glucose scanning reader #1 ea 03/16/22 (FreeStyle Evelyn 14 Day [place]) flash glucose sensor (FreeStyle #1 ea 03/16/22 Evelyn 14 Day Sensor kit) Accu-Chek Guide test strips (blood #300 ea 08/06/22 sugar diagnostic) atorvastatin 20 mg tablet 20 mg PO QAM #90 tabs 08/06/22 lancets (Accu-Chek Fastclix Lancet #300 ea 08/06/22 Drum) lisinopril 20 mg tablet 20 mg PO QAM #90 tabs 08/06/22 amlodipine 5 mg tablet 5 mg PO DAILY #90 tabs 09/02/22 oxcarbazepine 300 mg tablet 300 mg PO BID 30 days #60 tabs 11/03/22 levetiracetam 1,000 mg tablet 1,000 mg PO BID #60 tabs 11/18/22 fluoxetine 40 mg capsule 40 mg PO DAILY #90 caps 01/06/23 hydrocodone 5 mg-acetaminophen 325 1 tab PO BID PRN Pain #30 tabs 01/18/23 mg tablet pen needle, diabetic 32 gauge x #100 ea 02/01/23 5/16" varenicline 1 mg tablet (Chantix) 1 mg PO BID #56 tabs 02/08/23 levetiracetam 500 mg tablet 500 mg PO BID #60 tabs 02/11/23 semaglutide 0.25 mg or 0.5 mg (2 0.25 mg (0.4 mL) subcut Q7D #3 mL 03/15/23 mg/3 mL) subcutaneous pen injector (Ozempic) Results & Data (ED) Vital Signs Vital Signs - 24 hr 03/16/23 14:02 03/16/23 14:05 03/16/23 14:13 Temperature 37.0 C Temperature Source Oral Pulse Rate 96 H 98 H Pulse Rate [Finger] Respiratory Rate 27 H Respiratory Effort / Characteristics Non-Labored Respiratory Depth Normal Respiratory Pattern Blood Pressure 173/110 H Blood Pressure [Left Arm] Blood Pressure Mean 131 Blood Pressure Mean [Left Arm] Blood Pressure Position Lying Blood Pressure Position [Left Arm] Pulse Oximetry 91 92 Oxygen Delivery Method Room Air Room Air Sepsis Recent Fever Within 48 Hours No Sepsis New/Unexplained Change in Mental Status Yes Sepsis Action Taken by Nursing Physician Notified 03/16/23 17:01 Temperature Temperature Source Pulse Rate Pulse Rate [Finger] 77 Respiratory Rate 16 Respiratory Effort / Characteristics Non-Labored Spontaneous Respiratory Depth Normal Respiratory Pattern Regular Blood Pressure Blood Pressure [Left Arm] 159/94 H Blood Pressure Mean Blood Pressure Mean [Left Arm] 115 Blood Pressure Position Blood Pressure Position [Left Arm] Right Lateral Pulse Oximetry 98 Oxygen Delivery Method Room Air Sepsis Recent Fever Within 48 Hours Sepsis New/Unexplained Change in Mental Status Sepsis Action Taken by Nursing Laboratory Data 03/16/23 13:59 03/16/23 13:59 Lab Results 03/16/23 03/16/23 03/16/23 Range/Units 13:56 13:59 13:59 WBC 8.29 (4.8-10.8) K/ul RBC 4.31 L (4.70-6.10) M/uL Hgb 12.1 L (14.0-18.0) g/dl POC Hgb (14.0-18.0) g/dl Hct 39.6 L (42.0-52.0) % POC Hct (42-52) % MCV 91.9 (80.0-100.0) fL MCH 28.1 (25.0-34.0) pg MCHC 30.6 L (32.0-36.0) g/dL RDW Std Deviation 40.6 (36.4-46.3) fL RDW Coeff of Mayur 12.0 (11.5-14.5) % Plt Count 221 (130-400) K/uL MPV 10.1 (9.4-12.4) fL Immature Gran % (Auto) 1.8 % Neut % (Auto) 84.9 % Lymph % (Auto) 9.3 % O'Brien % (Auto) 2.9 % Eos % (Auto) 0.5 % Baso % (Auto) 0.6 % Neut # (Auto) 7.04 H (1.40-6.50) K/uL Lymph # (Auto) 0.77 L (1.2-3.4) K/uL O'Brien # (Auto) 0.24 (0.11-0.59) K/uL Eos # (Auto) 0.04 (0-0.50) K/uL Baso # (Auto) 0.05 (0-0.2) K/uL Immature Gran # (Auto) 0.15 (0.01-0.20) K/uL POC Sodium (135-144) mmol/L Sodium 138 (136-145) mmol/L POC Potassium (3.3-5.0) mmol/L Potassium 4.8 (3.5-5.1) mmol/L POC Chloride (101-112) mmol/L Chloride 100 (98-107) mmol/L Carbon Dioxide 32 (21-32) mmol/L POC Total CO2 (24-31) mmol/L Anion Gap 6 (3-11) POC Anion Gap (16-25) mmol/L POC BUN (7-18) mg/dl BUN 12 (6-23) mg/dl Creatinine 1.03 (0.6-1.4) mg/dl POC Creatinine (0.6-1.3) mg/dl Est Cr Clr Drug Dosing 95.7 ml/min Est GFR ( Amer) 91.7 ml/min Est GFR (Non-Af Amer) 79.1 ml/min BUN/Creatinine Ratio 11.7 (10-20) Glucose 319 H* (70-99(Fasting)) mg/dl POC Glucose 266 H (70-99) mg/dl POC Glucose (other) (70-99) mg/dl Calcium 8.6 (8.6-10.3) mg/dl POC Ioniz Calcium Maico (1.12-1.32) mmol/l Total Bilirubin 0.3 (0.2-1.0) mg/dl AST 13 (13-39) U/L ALT 11 (7-52) U/L Alkaline Phosphatase 88 (34-104) U/L Troponin I High Sens 12.5 (0-20) pg/ml Total Protein 6.3 (6.0-8.3) gm/dl Albumin 3.8 (3.4-5.0) gm/dl Globulin 2.5 (2.5-4.0) gm/dl Albumin/Globulin Ratio 1.5 (0.9-2) Lipase 112 H (11-82) U/L Urine Color Urine Appearance (Clear) Urine pH (4.5-7.5) Ur Specific [place] (1.000-1.030) Urine Protein (Negative) Urine Glucose (UA) (Negative) Urine Ketones (Negative) Urine Blood (Negative) Urine Nitrite (Negative) Urine Bilirubin (Negative) Urine Urobilinogen (Negative) Ur Leukocyte Esterase (Negative) Urine WBC (Auto) (0-5) /hpf Urine RBC (Auto) (0-4) /hpf U Hyaline Cast (Auto) (0-5) /lpf U Epithel Cells (Auto) (0-5) /lpf Urine Bacteria (Auto) (Negative) Urine Opiates Screen (Neg) Ur Methadone, Qual (Neg) Urine Barbiturates (Neg) Ur Phencyclidine (PCP) (Neg) U Amphetamin/Meth Scrn (Neg) MDMA (Ecstasy) Screen (Neg) U Benzodiazepines Scrn (Neg) Ur Cocaine Metabolite (Neg) U Marijuana (THC) Screen (Neg) Ethyl Alcohol mg/dL (<10.0) mg/dl SARS-CoV-2, RNA, NAAT (NEGATIVE) 03/16/23 03/16/23 03/16/23 Range/Units 14:03 14:13 15:51 WBC (4.8-10.8) K/ul RBC (4.70-6.10) M/uL Hgb (14.0-18.0) g/dl POC Hgb 13.6 L (14.0-18.0) g/dl Hct (42.0-52.0) % POC Hct 40 L (42-52) % MCV (80.0-100.0) fL MCH (25.0-34.0) pg MCHC (32.0-36.0) g/dL RDW Std Deviation (36.4-46.3) fL RDW Coeff of Mayur (11.5-14.5) % Plt Count (130-400) K/uL MPV (9.4-12.4) fL Immature Gran % (Auto) % Neut % (Auto) % Lymph % (Auto) % O'Brien % (Auto) % Eos % (Auto) % Baso % (Auto) % Neut # (Auto) (1.40-6.50) K/uL Lymph # (Auto) (1.2-3.4) K/uL O'Brien # (Auto) (0.11-0.59) K/uL Eos # (Auto) (0-0.50) K/uL Baso # (Auto) (0-0.2) K/uL Immature Gran # (Auto) (0.01-0.20) K/uL POC Sodium 136 (135-144) mmol/L Sodium (136-145) mmol/L POC Potassium 4.7 (3.3-5.0) mmol/L Potassium (3.5-5.1) mmol/L POC Chloride 100 L (101-112) mmol/L Chloride (98-107) mmol/L Carbon Dioxide (21-32) mmol/L POC Total CO2 27 (24-31) mmol/L Anion Gap (3-11) POC Anion Gap 15.0 L (16-25) mmol/L POC BUN 12 (7-18) mg/dl BUN (6-23) mg/dl Creatinine (0.6-1.4) mg/dl POC Creatinine 1.0 (0.6-1.3) mg/dl Est Cr Clr Drug Dosing ml/min Est GFR ( Amer) ml/min Est GFR (Non-Af Amer) ml/min BUN/Creatinine Ratio (10-20) Glucose (70-99(Fasting)) mg/dl POC Glucose (70-99) mg/dl POC Glucose (other) 330 H (70-99) mg/dl Calcium (8.6-10.3) mg/dl POC Ioniz Calcium Maico 1.05 L (1.12-1.32) mmol/l Total Bilirubin (0.2-1.0) mg/dl AST (13-39) U/L ALT (7-52) U/L Alkaline Phosphatase (34-104) U/L Troponin I High Sens 29.3 H D (0-20) pg/ml Total Protein (6.0-8.3) gm/dl Albumin (3.4-5.0) gm/dl Globulin (2.5-4.0) gm/dl Albumin/Globulin Ratio (0.9-2) Lipase (11-82) U/L Urine Color Urine Appearance (Clear) Urine pH (4.5-7.5) Ur Specific [place] (1.000-1.030) Urine Protein (Negative) Urine Glucose (UA) (Negative) Urine Ketones (Negative) Urine Blood (Negative) Urine Nitrite (Negative) Urine Bilirubin (Negative) Urine Urobilinogen (Negative) Ur Leukocyte Esterase (Negative) Urine WBC (Auto) (0-5) /hpf Urine RBC (Auto) (0-4) /hpf U Hyaline Cast (Auto) (0-5) /lpf U Epithel Cells (Auto) (0-5) /lpf Urine Bacteria (Auto) (Negative) Urine Opiates Screen (Neg) Ur Methadone, Qual (Neg) Urine Barbiturates (Neg) Ur Phencyclidine (PCP) (Neg) U Amphetamin/Meth Scrn (Neg) MDMA (Ecstasy) Screen (Neg) U Benzodiazepines Scrn (Neg) Ur Cocaine Metabolite (Neg) U Marijuana (THC) Screen (Neg) Ethyl Alcohol mg/dL (<10.0) mg/dl SARS-CoV-2, RNA, NAAT NEGATIVE (NEGATIVE) 03/16/23 03/16/23 03/16/23 Range/Units 15:51 16:35 16:35 WBC (4.8-10.8) K/ul RBC (4.70-6.10) M/uL Hgb (14.0-18.0) g/dl POC Hgb (14.0-18.0) g/dl Hct (42.0-52.0) % POC Hct (42-52) % MCV (80.0-100.0) fL MCH (25.0-34.0) pg MCHC (32.0-36.0) g/dL RDW Std Deviation (36.4-46.3) fL RDW Coeff of Mayur (11.5-14.5) % Plt Count (130-400) K/uL MPV (9.4-12.4) fL Immature Gran % (Auto) % Neut % (Auto) % Lymph % (Auto) % O'Brien % (Auto) % Eos % (Auto) % Baso % (Auto) % Neut # (Auto) (1.40-6.50) K/uL Lymph # (Auto) (1.2-3.4) K/uL O'Brien # (Auto) (0.11-0.59) K/uL Eos # (Auto) (0-0.50) K/uL Baso # (Auto) (0-0.2) K/uL Immature Gran # (Auto) (0.01-0.20) K/uL POC Sodium (135-144) mmol/L Sodium (136-145) mmol/L POC Potassium (3.3-5.0) mmol/L Potassium (3.5-5.1) mmol/L POC Chloride (101-112) mmol/L Chloride (98-107) mmol/L Carbon Dioxide (21-32) mmol/L POC Total CO2 (24-31) mmol/L Anion Gap (3-11) POC Anion Gap (16-25) mmol/L POC BUN (7-18) mg/dl BUN (6-23) mg/dl Creatinine (0.6-1.4) mg/dl POC Creatinine (0.6-1.3) mg/dl Est Cr Clr Drug Dosing ml/min Est GFR ( Amer) ml/min Est GFR (Non-Af Amer) ml/min BUN/Creatinine Ratio (10-20) Glucose (70-99(Fasting)) mg/dl POC Glucose (70-99) mg/dl POC Glucose (other) (70-99) mg/dl Calcium (8.6-10.3) mg/dl POC Ioniz Calcium [place] (1.12-1.32) mmol/l Total Bilirubin (0.2-1.0) mg/dl AST (13-39) U/L ALT (7-52) U/L Alkaline Phosphatase (34-104) U/L Troponin I High Sens (0-20) pg/ml Total Protein (6.0-8.3) gm/dl Albumin (3.4-5.0) gm/dl Globulin (2.5-4.0) gm/dl Albumin/Globulin Ratio (0.9-2) Lipase (11-82) U/L Urine Color Yellow Urine Appearance Clear (Clear) Urine pH 5.5 (4.5-7.5) Ur Specific [place] 1.029 (1.000-1.030) Urine Protein 3+ H (Negative) Urine Glucose (UA) 3+ H (Negative) Urine Ketones Negative (Negative) Urine Blood Negative (Negative) Urine Nitrite Negative (Negative) Urine Bilirubin Negative (Negative) Urine Urobilinogen Negative (Negative) Ur Leukocyte Esterase Negative (Negative) Urine WBC (Auto) 1-5 (0-5) /hpf Urine RBC (Auto) 0-4 (0-4) /hpf U Hyaline Cast (Auto) 0 (0-5) /lpf U Epithel Cells (Auto) 5-10 H (0-5) /lpf Urine Bacteria (Auto) Negative (Negative) Urine Opiates Screen Neg (Neg) Ur Methadone, Qual Neg (Neg) Urine Barbiturates Neg (Neg) Ur Phencyclidine (PCP) Neg (Neg) U Amphetamin/Meth Scrn Neg (Neg) MDMA (Ecstasy) Screen Pos H (Neg) U Benzodiazepines Scrn Neg (Neg) Ur Cocaine Metabolite Neg (Neg) U Marijuana (THC) Screen Pos H (Neg) Ethyl Alcohol mg/dL < 10.0 (<10.0) mg/dl SARS-CoV-2, RNA, NAAT (NEGATIVE) 03/16/23 Range/Units 16:47 WBC (4.8-10.8) K/ul RBC (4.70-6.10) M/uL Hgb (14.0-18.0) g/dl POC Hgb (14.0-18.0) g/dl Hct (42.0-52.0) % POC Hct (42-52) % MCV (80.0-100.0) fL MCH (25.0-34.0) pg MCHC (32.0-36.0) g/dL RDW Std Deviation (36.4-46.3) fL RDW Coeff of Mayur (11.5-14.5) % Plt Count (130-400) K/uL MPV (9.4-12.4) fL Immature Gran % (Auto) % Neut % (Auto) % Lymph % (Auto) % O'Brien % (Auto) % Eos % (Auto) % Baso % (Auto) % Neut # (Auto) (1.40-6.50) K/uL Lymph # (Auto) (1.2-3.4) K/uL O'Brien # (Auto) (0.11-0.59) K/uL Eos # (Auto) (0-0.50) K/uL Baso # (Auto) (0-0.2) K/uL Immature Gran # (Auto) (0.01-0.20) K/uL POC Sodium (135-144) mmol/L Sodium (136-145) mmol/L POC Potassium (3.3-5.0) mmol/L Potassium (3.5-5.1) mmol/L POC Chloride (101-112) mmol/L Chloride (98-107) mmol/L Carbon Dioxide (21-32) mmol/L POC Total CO2 (24-31) mmol/L Anion Gap (3-11) POC Anion Gap (16-25) mmol/L POC BUN (7-18) mg/dl BUN (6-23) mg/dl Creatinine (0.6-1.4) mg/dl POC Creatinine (0.6-1.3) mg/dl Est Cr Clr Drug Dosing ml/min Est GFR ( Amer) ml/min Est GFR (Non-Af Amer) ml/min BUN/Creatinine Ratio (10-20) Glucose (70-99(Fasting)) mg/dl POC Glucose 150 H (70-99) mg/dl POC Glucose (other) (70-99) mg/dl Calcium (8.6-10.3) mg/dl POC Ioniz Calcium [place] (1.12-1.32) mmol/l Total Bilirubin (0.2-1.0) mg/dl AST (13-39) U/L ALT (7-52) U/L Alkaline Phosphatase (34-104) U/L Troponin I High Sens (0-20) pg/ml Total Protein (6.0-8.3) gm/dl Albumin (3.4-5.0) gm/dl Globulin (2.5-4.0) gm/dl Albumin/Globulin Ratio (0.9-2) Lipase (11-82) U/L Urine Color Urine Appearance (Clear) Urine pH (4.5-7.5) Ur Specific [place] (1.000-1.030) Urine Protein (Negative) Urine Glucose (UA) (Negative) Urine Ketones (Negative) Urine Blood (Negative) Urine Nitrite (Negative) Urine Bilirubin (Negative) Urine Urobilinogen (Negative) Ur Leukocyte Esterase (Negative) Urine WBC (Auto) (0-5) /hpf Urine RBC (Auto) (0-4) /hpf U Hyaline Cast (Auto) (0-5) /lpf U Epithel Cells (Auto) (0-5) /lpf Urine Bacteria (Auto) (Negative) Urine Opiates Screen (Neg) Ur Methadone, Qual (Neg) Urine Barbiturates (Neg) Ur Phencyclidine (PCP) (Neg) U Amphetamin/Meth Scrn (Neg) MDMA (Ecstasy) Screen (Neg) U Benzodiazepines Scrn (Neg) Ur Cocaine Metabolite (Neg) U Marijuana (THC) Screen (Neg) Ethyl Alcohol mg/dL (<10.0) mg/dl SARS-CoV-2, RNA, NAAT (NEGATIVE) Administered Medications Lactated Ringer's (Lr) 1,000 mls @ 100 mls/hr IV .Q10H DINA Stop: 03/17/23 04:29 Last Admin: 03/16/23 18:51 Dose: 100 mls/hr Documented By: Insulin Aspart (Insulin Aspart Per Unit Charge) 0 units SC ACHS DINA; Protocol Stop: 04/15/23 18:29 Last Admin: 03/16/23 18:56 Dose: Not Given Documented By: Co-signed By: DELISA Discontinued Medications Sodium Chloride (Nss 1000ml) 2,000 mls @ 999 mls/hr IV .Q2H1M ONE Stop: 03/16/23 16:01 Last Infusion: 03/16/23 16:38 Dose: 0 mls/hr Documented By: Admin: 03/16/23 14:27 Dose: 999 mls/hr Documented By: AM Levetiracetam 2,000 mg/ Sodium (Chloride) 270 mls @ 999 mls/hr IV NOW STA Stop: 03/16/23 14:17 Last Infusion: 03/16/23 14:45 Dose: 0 mls/hr Documented By: Admin: 03/16/23 14:27 Dose: 999 mls/hr Documented By: AM Insulin Glargine (Lantus Per Unit Charge) 10 units SQ NOW ; Protocol Stop: 03/16/23 18:30 Last Admin: 03/16/23 18:55 Dose: 10 units Documented By: Co-signed By: TOM Ioversol (Optiray 350 100ml) 87 ml IV ONCE ONE Stop: 03/16/23 15:36 Last Admin: 03/16/23 15:35 Dose: 87 ml Documented By: HUGO Oxcarbazepine (Oxcarbazepine 150 Mg Tablet) 300 mg PO NOW STA Stop: 03/16/23 19:14 Last Admin: 03/16/23 19:31 Dose: 300 mg Documented By: Imaging Data Radiologist's Impression: Chest X-Ray 03/16/23 14:01 SUPINE PORTABLE AP CHEST RADIOGRAPH CLINICAL HISTORY: Chest pain, nonspecific COMPARISON STUDY: Chest radiograph March 14, [address] performed earlier today. FINDINGS: Lung volumes are at the lower limits of normal. Lungs are clear. There is no pneumothorax or pleural effusion. Cardiac size is normal. Mediastinal contours are normal. There is no evidence for pulmonary edema. IMPRESSION: No acute cardiopulmonary findings. ACT 112: Negative or not required by law. Electronically signed by: Arcadio Godfrey M.D. 03/16/2023 4:32 PM Elbow X-Ray 03/16/23 14:01 XR elbow LT min 3V routine HISTORY: 57 years-old Male l ekbow pain acute left-sided elbow pain without reported trauma COMPARISON: None TECHNIQUE: 3 views of the left elbow FINDINGS: IV catheter noted. Large olecranon enthesophyte with mild dorsal soft tissue swelling. Mild osteoarthritis of the elbow. No acute fracture, dislocation or large joint effusion. IMPRESSION: 1. No acute fracture or dislocation. 2. Large olecranon enthesophyte. 3. Mild dorsal soft tissue swelling. ACT 112: Negative or not required by law. The above report was generated using voice recognition software. It may contain grammatical, syntax or spelling errors. Electronically signed by: Aroldo Tavarez M.D. 03/16/2023 4:32 PM Hip/Pelvis X-Ray 03/16/23 14:01 XR hip LT 2V w pelvis CLINICAL HISTORY: Left hip pain. Fall. COMPARISON: Pelvis and left hip radiograph March 04, 2021. CT of the abdomen and pelvis performed earlier today. FINDINGS: Left hip arthroplasty is intact. Electronic device projects over the left lower quadrant. Sacroiliac joints and symphysis pubis are intact. No acute fracture within the pelvis or hips is identified. Contrast within the ureters and bladder from recent contrast-enhanced CT. Mild joint space narrowing and moderate osteophytosis of the right hip is noted. IMPRESSION: 1. No acute fracture within the pelvis or hips. 2. Intact total left hip arthroplasty. ACT 112: Negative or not required by law. Electronically signed by: Arcadio Godfrey M.D. 03/16/2023 4:[address] 03/16/23 14:03 CT OF THE CERVICAL SPINE WITHOUT CONTRAST CLINICAL HISTORY: Fall. Neck pain. COMPARISON STUDY: Cervical spine CT May 29, 2019. TECHNIQUE: Helical axial images of the cervical spine were obtained without IV contrast. Sagittal and coronal reconstructions were viewed. Automated exposure control was utilized for the study. A dose lowering technique was utilized adhering to the principles of ALARA. FINDINGS: Reversal of the cervical lordosis is unchanged. There is no acute cervical spine fracture. There is moderate to severe multilevel degenerative disc disease and facet arthrosis within the cervical spine. Extensive osteophytosis is noted anteriorly. There has been no significant change in appearance of the cervical spine. IMPRESSION: 1. No acute cervical spine fracture or subluxation. 2. Moderate to severe multilevel degenerative changes within the cervical spine. ACT 112: Negative or not required by law. Electronically signed by: Arcadio Godfrey M.D. 03/16/2023 3:[address] 03/16/23 14:03 CT head/brain wo con CLINICAL HISTORY: 57 years-old Male with tracy. Acute headache TECHNIQUE: Multiple axial CT images of the head were obtained without contrast. A dose lowering technique was utilized adhering to the principles of ALARA. CT DOSE: 3238.85 mGy.cm COMPARISON: 07/22/2022 FINDINGS: No acute intracranial hemorrhage, midline shift, intracranial mass, hydrocephalus, territorial ischemia or abnormal extra-axial collection. Mild white matter hypodensities are again noted suggestive of chronic microvascular ischemic disease. The study is motion degraded. The calvarium is intact. Mastoid air cells are clear. Minimal mucosal thickening of the paranasal sinuses. Unremarkable soft tissues. IMPRESSION: No acute intracranial abnormality. ACT 112: Negative or not required by law. The above report was generated using voice recognition software. It may contain grammatical, syntax or spelling errors. Electronically signed by: Aroldo Tavarez M.D. 03/16/2023 3:42 PM Abdomen/Pelvis CT 03/16/23 14:06 CT OF THE ABDOMEN AND PELVIS WITH CONTRAST CLINICAL HISTORY: Fall. COMPARISON STUDY: CT of the abdomen and pelvis May 29, 2019 and renal ultrasound November 21, 2019. TECHNIQUE: Following IV administration of 87 mL of Optiray, axial images of the abdomen and pelvis were obtained from the lung bases to the proximal femurs. Images were reviewed in the axial, sagittal, and coronal planes. IV contrast was administered without complication. Automated exposure control was utilized for the study. A dose lowering technique was utilized adhering to the principles of ALARA. FINDINGS: Please note that the chest CT will be reported separately. No hemoperitoneum or pneumoperitoneum is present. There is no evidence for traumatic injury to the liver, spleen, adrenal glands, kidneys or pancreas. There is no biliary or pancreatic ductal dilatation. No peripancreatic or pericholecystic stranding is present. A few subcentimeter renal lesions are too small to characterize. A moderate amount stool within the colon and rectum is present. There is no evidence for a bowel obstruction. No free fluid. Caliber and wall thickness of small and large bowel are normal. Left hip arthroplasty is intact. No acute fractures within the visualized skeletal structures are identified. IMPRESSION: No acute traumatic findings within the abdomen or pelvis. ACT 112: Negative or not required by law. Electronically signed by: Arcadio Godfrey M.D. 03/16/2023 3:[address] 03/16/23 14:06 CT chest diagnostic w con CLINICAL HISTORY: fall down stiars confuse TECHNIQUE: Multidetector row helical CT of the chest was performed with intravenous contrast. Coronal and sagittal reformations were obtained. Automated dose lowering techniques and/or adjustment according to patient size were utilized for this exam. Comparison: Comparison is made to CT chest 05/29/2019 FINDINGS: Lungs and pleura: Bronchial wall thickening is seen. There is a stable 4 mm nodule in the right lower lobe (series 10 image 129) and a 4 mm nodule in the right lower lobe (image 125). Heart and pericardium: Heart size is normal. No pericardial effusion. Vessels: Unremarkable. Mediastinum and chelo: Unremarkable. Chest wall and lower neck: Gynecomastia is noted bilaterally. Abdomen: For findings below the diaphragm, please refer to CT of the abdomen dated the same. Bones: Degenerative changes in the thoracic spine. IMPRESSION: No acute abnormalities and in particular no evidence of acute fractures. ACT 112: Negative or not required by law. Electronically signed by: Navneet Treviño M.D. 03/16/2023 4:17 PM Discharge Plan Visit Data Chief Complaint: Seizure Stated Complaint: Seizure ED Provider: Blake Deluna Discharge Problem: Status epilepticus, Hyperglycemia, Elevated troponin Patient Disposition: Admitted As Inpatient Discharge Instructions Interventions: ED Discharge Assessment Last Done: 03/16/23 17:38
[2023-03-16 14:27] LABS: Basophils # (auto) 0.05 K/uL (0-0.2); Basophils % (auto) 0.6 %; Eosinophils # (auto) 0.04 K/uL (0-0.50); Eosinophils % (auto) 0.5 %; Hematocrit (blood only) 39.6 % (42.0-52.0); Hemoglobin 12.1 g/dl (14.0-18.0); Immature Granulocytes # (auto) 0.15 K/uL (0.01-0.20); Immature Granulocytes % (auto) 1.8 %; Lymphocytes # (auto) 0.77 K/uL (1.2-3.4); Lymphocytes % (auto) 9.3 %; Mean Corpuscular Hemoglobin 28.1 pg (25.0-34.0); Mean Corpuscular Hgb Conc 30.6 g/dL (32.0-36.0); Mean Corpuscular Volume 91.9 fL (80.0-100.0); Mean Platelet Volume 10.1 fL (9.4-12.4); Monocytes # (auto) 0.24 K/uL (0.11-0.59); Monocytes % (auto) 2.9 %; Neutrophils # (auto) 7.04 K/uL (1.40-6.50); Neutrophils % (auto) 84.9 %; Platelet Count 221 K/uL (130-400); RDW Standard Deviation 40.6 fL (36.4-46.3); Red Blood Count 4.31 M/uL (4.70-6.10); White Blood Count 8.29 K/ul (4.8-10.8)
[2023-03-16 14:58] LABS: Albumin Globulin Ratio 1.5 (0.9-2); Albumin Level 3.8 gm/dl (3.4-5.0); BUN Creatinine Ratio 11.7 (10-20); Bilirubin,Total 0.3 mg/dl (0.2-1.0); Calcium 8.6 mg/dl (8.6-10.3); Creatinine Clr Calc Pharmacy 95.7 ml/min; Est GFR (African American) 91.7 ml/min; Est GFR (Non-African American) 79.1 ml/min; Globulin 2.5 gm/dl (2.5-4.0); Potassium 4.8 mmol/L (3.5-5.1); Total Protein 6.3 gm/dl (6.0-8.3); Troponin I High Sensitivity 12.5 pg/ml (0-20)
[2023-03-16 15:05] LABS: iSTAT Hemoglobin 13.6 g/dl (14.0-18.0); iSTAT Ionized Calcium 1.05 mmol/l (1.12-1.32); iSTAT Potassium 4.7 mmol/L (3.3-5.0)
[2023-03-16] MEDS ORDERED: OPTIRAY 350 100ml IV ONE (15:35)
--- NOTE | 2023-03-16 15:44 | CT Scan Report ---
CT head/brain wo con CLINICAL HISTORY: 57 years-old Male with tracy. Acute headache TECHNIQUE: Multiple axial CT images of the head were obtained without contrast. A dose lowering tech nique was utilized adhering to the principles of ALARA. CT DOSE: 3238.85 mGy.cm COMPARISON: 07/22/2022 FINDINGS: No acute intracranial hemorrhage, midline shift, intracranial mass, hydrocephalus, territorial ischem ia or abnormal extra-axial collection. Mild white matter hypodensities are again noted suggestive of chronic microvascular ischemic disease. The study is motion degraded. The calvarium is intact. Mastoid air cells are clear. Minimal mucosal thickening of the paranasal si nuses. Unremarkable soft tissues. IMPRESSION: No acute intracranial abnormality. ACT 112: Negative or not required by law. The above report was generated using voice recognition software. It may contain grammatical, syntax o r spelling errors. Electronically signed by: Aroldo Tavarez M.D. 03/16/2023 3:42 PM
--- NOTE | 2023-03-16 15:51 | CT Scan Report ---
CT OF THE CERVICAL SPINE WITHOUT CONTRAST CLINICAL HISTORY: Fall. Neck pain. COMPARISON STUDY: Cervical spine CT May 29, 2019. TECHNIQUE: Helical axial images of the cervical spine were obtained without IV contrast. Sagittal a nd coronal reconstructions were viewed. Automated exposure control was utilized for the study. A do se lowering technique was utilized adhering to the principles of ALARA. FINDINGS: Reversal of the cervical lordosis is unchanged. There is no acute cervical spine fracture. There is moderate to severe multilevel degenerative disc disease and facet arthrosis within the cervi cl spine. Extensive osteophytosis is noted anteriorly. There has been no significant change in appea joce of the cervical spine. IMPRESSION: 1. No acute cervical spine fracture or subluxation. 2. Moderate to severe multilevel degenerative changes within the cervical spine. ACT 112: Negative or not required by law. Electronically signed by: Arcadio Godfrey M.D. 03/16/2023 3:49 PM
--- NOTE | 2023-03-16 15:59 | CT Scan Report ---
CT OF THE ABDOMEN AND PELVIS WITH CONTRAST CLINICAL HISTORY: Fall. COMPARISON STUDY: CT of the abdomen and pelvis May 29, 2019 and renal ultrasound November 21, 2019. TECHNIQUE: Following IV administration of 87 mL of Optiray, axial images of the abdomen and pelvis we re obtained from the lung bases to the proximal femurs. Images were reviewed in the axial, sagittal, and coronal planes. IV contrast was administered without complication. Automated exposure control wa s utilized for the study. A dose lowering technique was utilized adhering to the principles of ALARA . FINDINGS: Please note that the chest CT will be reported separately. No hemoperitoneum or pneumoperit oneum is present. There is no evidence for traumatic injury to the liver, spleen, adrenal glands, kid neys or pancreas. There is no biliary or pancreatic ductal dilatation. No peripancreatic or perichole cystic stranding is present. A few subcentimeter renal lesions are too small to characterize. A moder ate amount stool within the colon and rectum is present. There is no evidence for a bowel obstruction . No free fluid. Caliber and wall thickness of small and large bowel are normal. Left hip arthroplast y is intact. No acute fractures within the visualized skeletal structures are identified. IMPRESSION: No acute traumatic findings within the abdomen or pelvis. ACT 112: Negative or not required by law. Electronically signed by: Arcadio Godfrey M.D. 03/16/2023 3:57 PM
--- NOTE | 2023-03-16 16:18 | CT Scan Report ---
CT chest diagnostic w con CLINICAL HISTORY: fall down stiars confuse TECHNIQUE: Multidetector row helical CT of the chest was performed with intravenous contrast. Coronal and sagittal reformations were obtained. Automated dose lowering techniques and/or adjustment accord ing to patient size were utilized for this exam. Comparison: Comparison is made to CT chest 05/29/2019 FINDINGS: Lungs and pleura: Bronchial wall thickening is seen. There is a stable 4 mm nodule in the right lower lobe (series 10 image 129) and a 4 mm nodule in the right lower lobe (image 125). Heart and pericardium: Heart size is normal. No pericardial effusion. Vessels: Unremarkable. Mediastinum and chelo: Unremarkable. Chest wall and lower neck: Gynecomastia is noted bilaterally. Abdomen: For findings below the diaphragm, please refer to CT of the abdomen dated the same. Bones: Degenerative changes in the thoracic spine. IMPRESSION: No acute abnormalities and in particular no evidence of acute fractures. ACT 112: Negative or not required by law. Electronically signed by: Navneet Treviño M.D. 03/16/2023 4:17 PM
--- NOTE | 2023-03-16 16:33 | XRay Report ---
XR hip LT 2V w pelvis CLINICAL HISTORY: Left hip pain. Fall. COMPARISON: Pelvis and left hip radiograph March 04, 2021. CT of the abdomen and pelvis performed jr ier today. FINDINGS: Left hip arthroplasty is intact. Electronic device projects over the left lower quadrant. Sacroiliac joints and symphysis pubis are intact. No acute fracture within the pelvis or hips is iden tified. Contrast within the ureters and bladder from recent contrast-enhanced CT. Mild joint space na rrowing and moderate osteophytosis of the right hip is noted. IMPRESSION: 1. No acute fracture within the pelvis or hips. 2. Intact total left hip arthroplasty. ACT 112: Negative or not required by law. Electronically signed by: Arcadio Godfrey M.D. 03/16/2023 4:32 PM
--- NOTE | 2023-03-16 16:34 | XRay Report ---
XR elbow LT min 3V routine HISTORY: 57 years-old Male l ekbow pain acute left-sided elbow pain without reported trauma COMPARISON: None TECHNIQUE: 3 views of the left elbow FINDINGS: IV catheter noted. Large olecranon enthesophyte with mild dorsal soft tissue swelling. Mild osteoarth ritis of the elbow. No acute fracture, dislocation or large joint effusion. IMPRESSION: 1. No acute fracture or dislocation. 2. Large olecranon enthesophyte. 3. Mild dorsal soft tissue swelling. ACT 112: Negative or not required by law. The above report was generated using voice recognition software. It may contain grammatical, syntax o r spelling errors. Electronically signed by: Aroldo Tavarez M.D. 03/16/2023 4:32 PM
--- NOTE | 2023-03-16 16:34 | XRay Report ---
SUPINE PORTABLE AP CHEST RADIOGRAPH CLINICAL HISTORY: Chest pain, nonspecific COMPARISON STUDY: Chest radiograph March 14, [address] performed earlier today. FINDINGS: Lung volumes are at the lower limits of normal. Lungs are clear. There is no pneumothorax o r pleural effusion. Cardiac size is normal. Mediastinal contours are normal. There is no evidence for pulmonary edema. IMPRESSION: No acute cardiopulmonary findings. ACT 112: Negative or not required by law. Electronically signed by: Arcadio Godfrey M.D. 03/16/2023 4:32 PM
[2023-03-16 16:54] LABS: Appearance Urine Clear (Clear); Bacteria Urine Automated Negative (Negative); Bilirubin Urine Negative (Negative); Blood Urine Negative (Negative); Cast Urine Automated 0 /lpf (0-5); Color Urine Yellow; Glucose Urine UA 3+ (Negative); Ketones Urine Negative (Negative); Leukocyte Esterase Urine Negative (Negative); Nitrite Urine Negative (Negative); Protein Urine 3+ (Negative); RBC Urine Automated 0-4 /hpf (0-4); Specific Gravity Urine 1.029 (1.000-1.030); Urobilinogen Urine Negative (Negative); pH Urine 5.5 (4.5-7.5)
--- NOTE | 2023-03-16 17:13 | History & Physical Report ---
Date of Service March 16, 2023 Assessment & Plan (1) Seizures: Plan: -Admit to the PCU on tele -The patient is currently afebrile, hemodynamically stable, and stable on RA -The patient experienced multiple seizures for approximately 1.5 hours from noon to arrival in the ED, did not break after multiple doses of Ativan by EMS, currently stable after 2gm IV keppra in the ED -At this time it appears that the patient has been taking his Keppra and Oxcarbazepine as prescribed, however, he is smoking marijuana daily -No acute trauma on extensive trauma workup -Continue seizure precautions -Will give him his 1500 mg of Keppra tonight as IV and continue with PO dosing tomorrow -Will continue BID PO Oxcarbazepine -Will given another 1L LR on admission as he appears dry -Follow urine drug screen -Will hold chemical PPX at this time with his trauma, will start with BL SCD's -AM CBC, CMP, Mag, PT/INR (2) Elevated troponin: Plan: -Initial high sen trop was WNL, 2 hour repeat was increased from 12.5 --> 29 -The patient is without chest pain/discomfort and no acute changes on ECG -Will repeat another high sen trop at 2000 and continue to monitor on tele (3) Type 1 diabetes mellitus: Plan: -Initially hyperglycemic with BSG of 319 in the ED, fell to 185 after initial fluid bolus -Monitor BSG q4h until he is eating consistently, goal is 110-140 -Typically on 26 units of glargine qam, did not have his dose today -Will start 10 units glargine BID tonight, continue with a CF of 50 and CR of 15 for now -Pharmacy DM consult placed as he is type 1 and may require multiple adjustments -DM I diet when he clears dysphagia screen (4) Depression: Plan: -Continue fluoxetine (5) Hypertension: Plan: -Stable -Continue amlodipine (6) Polysubstance abuse: Plan: -Follow urine tox screen -Continue to stress the importance of cessation (7) Hyperlipidemia: Plan: -Hold stain until his CK level results Plan The patient was discussed with Dr. Wilder at the time of the admission History of Present Illness Chief Complaint: Seizures, fall Primary Care Provider: VANNESSA Wolfe Chung Riddle is a 57yo male with history of type 1 DM, HTN, Seizure, hyperlipidemia, polysubstance abuse, as-well-as prior opioid use disorder on Suboxone therapy presenting by EMS due to seizure and fall. In the ED the patient's vitals were found to be stable. Labs were remarkable for a stable Hgb of 12, stable Cr of 1.03, initial glucose of 319, ionized calcium of 1.05 otherwise stable electrolytes, initial high sen trop of 12 with 2 hour repeat of 29, lipase of 112, clean UA, negative medical alcohol level, and covid [address] of the head and cervical spine were read as "No acute intracranial abnormality.". CT of the abd/pelvis was read as "No acute traumatic findings within the abdomen or pelvis.". CT of the chest was read as "No acute abnormalities and in particular no evidence of acute fractures.". Xray of the left elbow was read as "No acute fracture or dislocation. 2. Large olecranon enthesophyte. 3. Mild dorsal soft tissue swelling.". And CXR and xray of the pelvis were negative for acute trauma. Prior to admission the patient was given 2gm IV keppra and 2L NSS. At the time of the exam the patient was sleeping comfortably in bed with his [id number] sitting bedside, the majority of the history was obtained from the [id number]. She states that the patient and his daughter live with she and her . She and her help to care for the patient, such as organizing and ensure he takes his medications each day. She states that he had been in his normal state of health when they heard a loud noise near the steps. When they found the patient he was lying on his back, with his head leaning against the door, having a seizure. The patient's sister in law explained that she has witnessed his seizures multiple times in the past and this was similar to his prior episodes. She states that the first seizure lasted for approximately 30 seconds to 1 min when the patient regained consciousness. He was confused like his typical postictal states and stated that he could not sit up yet. He then slumped back to the ground and proceeded to have another seizure. The patient's family states that this is not normal for him, typically he only has one seizure but they stop once the first breaks. She states that he had multiple more seizures, even after EMS arrived and gave him Ativan. When asked, the patient's family confirms that he took his PM meds last night but had yet to take his am meds before the seizure occurred. The patient woke when I called his name and gently shook his arm. He was fatigued but alert and answers questions appropriately. He was unaware he had multiple seizures earlier today. When asked, he currently denies any pain or other complaints. When asked about alcohol and recreational drug use he confirms that he is smoking marijuana approximately daily. He will drink vodka "a few" nights a week but it will take him approximately a month to get through a fifth of vodka, his family confirmed. He is not currently on Suboxone or Percocet at this time. He denies any recent IV drug use. His family explains that he had a left knee replacement early last month at [facility], his family confirms that he finished his last dose of Eliquis today for post-op DVT PPX. I stressed to the patient that marijuana can decrease the seizure threshold, and stressed the improtance with cessation of recreational drugs, he expressed understanding. Please refer to Dr. Wilder's attestation for any changes to the treatment plan Allergies Allergy/AdvReac Type Severity Reaction Status Date / Time No Known Allergies Allergy Verified 03/16/23 14:55 Home Medications Medication Instructions Recorded Confirmed Type blood-glucose meter (Accu-Chek #1 ea 06/18/21 03/15/23 Rx Guide Glucose Meter) blood-glucose meter (Blood Glucose #1 ea 11/27/21 03/15/23 Rx Monitoring kit) buprenorphine 8 mg-naloxone 2 mg 2 tab sublingual QAM 03/14/22 03/16/23 History sublingual tablet flash glucose scanning reader #1 ea 03/16/22 03/15/23 Rx (FreeStyle Evelyn 14 Day [place]) flash glucose sensor (FreeStyle #1 ea 03/16/22 03/15/23 Rx Evelyn 14 Day Sensor kit) Accu-Chek Guide test strips (blood #300 ea 08/06/22 03/15/23 Rx sugar diagnostic) atorvastatin 20 mg tablet 20 mg PO QAM #90 tabs 08/06/22 03/16/23 Rx lancets (Accu-Chek Fastclix Lancet #300 ea 08/06/22 03/15/23 Rx Drum) lisinopril 20 mg tablet 20 mg PO QAM #90 tabs 08/06/22 03/16/23 Rx amlodipine 5 mg tablet 5 mg PO DAILY #90 tabs 09/02/22 03/16/23 Rx oxcarbazepine 300 mg tablet 300 mg PO BID 30 days #60 tabs 11/03/22 03/16/23 Rx levetiracetam 1,000 mg tablet 1,000 mg PO BID #60 tabs 11/18/22 03/16/23 Rx fluoxetine 40 mg capsule 40 mg PO DAILY #90 caps 01/06/23 03/16/23 Rx hydrocodone 5 mg-acetaminophen 325 1 tab PO BID PRN Pain #30 tabs 01/18/23 03/16/23 Rx mg tablet pen needle, diabetic 32 gauge x #100 ea 02/01/23 03/15/23 Rx /" levetiracetam 500 mg tablet 500 mg PO BID #60 tabs 02/11/23 03/16/23 Rx insulin aspart U-100 100 unit/mL 6 unit subcut TID 03/15/23 03/16/23 History (3 mL) subcutaneous pen (Novolog FlexPen U-100 Insulin aspart) semaglutide 0.25 mg or 0.5 mg (2 0.25 mg (0.4 mL) subcut Q7D #3 mL 03/15/23 03/16/23 Rx mg/3 mL) subcutaneous pen injector (Ozempic) insulin glargine 100 unit/mL (3 26 unit (0.26 mL) subcut QAM #30 mL 03/24/23 Rx mL) subcutaneous pen (Basaglar KwikPen U-100 Insulin) Past Med/Surg History Medical History Anxiety Chronic back pain Chronic hip pain Depression Diabetes mellitus Hx of peripheral neuropathy Hyperlipidemia Hypertension Osteoarthritis Renal insufficiency Seizure disorder Surgical History History of surgical removal of meniscus of knee Hx of repair of rotator cuff S/P total hip arthroplasty Family History Brother Bipolar disorder Depression Diabetes Hypertension Father Diabetes Hypertension Kidney disease Myocardial infarction Denies family history of Ovarian cancer Prostate cancer Breast cancer Social History Smoking Status: Former smoker Tobacco Type: Cigarettes Age Started Using Tobacco: 16; Cigarettes Per Day: 12 CIGS A DAY; Second Hand Exposure: Yes; Hx Alcohol Use: Yes Alcohol type: hard liquor Hx Substance Use: Yes Non-Prescribed Medications: Marijuana Non-Prescribed Medications Comment: vapes ~daily Last Used Substance: Unknown Last Used Substance Other:: marijuana Substance Use Type Other:: MARIJUANA INH LESS THAN 2-3 X A WEEK-NO CARD Preferred Language: Cambodian Communication Ability: Effective 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 Seatbelt Use: sometimes Sunscreen Use: No Assistive Devices: None Physical Exam Physical Exam: Physical Exam: General: In no acute distress, stated age, well-nourished, good hygiene HEENT: Normocephalic, atraumatic, no scleral icterus, pupils around round, symmetrical, and reactive to light, dry mucus membranes, trachea midline, no thyromegaly Chest/Pulm: No respiratory distress, symmetrical chest expansion, clear breath sounds throughout Cardiac: RRR, no murmurs noted Abdomen: Negative for ascites and bruising, normoactive bowel sounds, soft, non-tender to palpation throughout Musculoskeletal: Symmetrical and without signs of acute trauma, upper and lower extremities with full ROM, no tenderness to palpation of the face, head, cervical, thoracic, or lumbar spine, no atrophy, spasticity, or flaccidity Extremities: Radial, dorsalis pedis, and posterior tibial pulses are intact and symmetrical, no edema noted in the BL LE's Skin: Warm, dry, no rashes , lesions, or scars noted Neuro: Alert and oriented to person, month, year, no focal defects, CN II-XII tested and intact, finger to nose test negative, no tremors noted Psych: No acute distress, fatigued but calm and cooperative during the exam Results & Data Results & Data Vital Signs (Past 12 Hours) Vital Signs Temp Pulse Pulse Resp BP BP Pulse Ox 03/16/23 17:01 77 16 159/94 H 98 03/16/23 14:13 98 H 03/16/23 14:05 92 03/16/23 14:02 37.0 C 96 H 27 H 173/110 H 91 O2 Del Method 03/16/23 17:01 Room Air 03/16/23 14:13 03/16/23 14:05 Room Air 03/16/23 14:02 Room Air Laboratory Results Abnormal lab results 03/16/23 03/16/23 03/16/23 Range/Units 13:56 13:59 13:59 RBC 4.31 L (4.70-6.10) M/uL Hgb 12.1 L (14.0-18.0) g/dl POC Hgb (14.0-18.0) g/dl Hct 39.6 L (42.0-52.0) % POC Hct (42-52) % MCHC 30.6 L (32.0-36.0) g/dL Neut # (Auto) 7.04 H (1.40-6.50) K/uL Lymph # (Auto) 0.77 L (1.2-3.4) K/uL POC Chloride (101-112) mmol/L POC Anion Gap (16-25) mmol/L Glucose 319 H* (70-99(Fasting)) mg/dl POC Glucose 266 H (70-99) mg/dl POC Glucose (other) (70-99) mg/dl POC Ioniz Calcium [place] (1.12-1.32) mmol/l Troponin I High Sens (0-20) pg/ml Lipase 112 H (11-82) U/L Urine Protein (Negative) Urine Glucose (UA) (Negative) U Epithel Cells (Auto) (0-5) /lpf MDMA (Ecstasy) Screen (Neg) U Marijuana (THC) Screen (Neg) 03/16/23 03/16/23 03/16/23 Range/Units 14:03 15:51 16:35 RBC (4.70-6.10) M/uL Hgb (14.0-18.0) g/dl POC Hgb 13.6 L (14.0-18.0) g/dl Hct (42.0-52.0) % POC Hct 40 L (42-52) % MCHC (32.0-36.0) g/dL Neut # (Auto) (1.40-6.50) K/uL Lymph # (Auto) (1.2-3.4) K/uL POC Chloride 100 L (101-112) mmol/L POC Anion Gap 15.0 L (16-25) mmol/L Glucose (70-99(Fasting)) mg/dl POC Glucose (70-99) mg/dl POC Glucose (other) 330 H (70-99) mg/dl POC Ioniz Calcium [place] 1.05 L (1.12-1.32) mmol/l Troponin I High Sens 29.3 H D (0-20) pg/ml Lipase (11-82) U/L Urine Protein 3+ H (Negative) Urine Glucose (UA) 3+ H (Negative) U Epithel Cells (Auto) 5-10 H (0-5) /lpf MDMA (Ecstasy) Screen (Neg) U Marijuana (THC) Screen (Neg) 03/16/23 03/16/23 Range/Units 16:35 16:47 RBC (4.70-6.10) M/uL Hgb (14.0-18.0) g/dl POC Hgb (14.0-18.0) g/dl Hct (42.0-52.0) % POC Hct (42-52) % MCHC (32.0-36.0) g/dL Neut # (Auto) (1.40-6.50) K/uL Lymph # (Auto) (1.2-3.4) K/uL POC Chloride (101-112) mmol/L POC Anion Gap (16-25) mmol/L Glucose (70-99(Fasting)) mg/dl POC Glucose 150 H (70-99) mg/dl POC Glucose (other) (70-99) mg/dl POC Ioniz Calcium [place] (1.12-1.32) mmol/l Troponin I High Sens (0-20) pg/ml Lipase (11-82) U/L Urine Protein (Negative) Urine Glucose (UA) (Negative) U Epithel Cells (Auto) (0-5) /lpf MDMA (Ecstasy) Screen Pos H (Neg) U Marijuana (THC) Screen Pos H (Neg) Diagnostic Findings Chest X-Ray 03/16/23 14:01 SUPINE PORTABLE AP CHEST RADIOGRAPH CLINICAL HISTORY: Chest pain, nonspecific COMPARISON STUDY: Chest radiograph March 14, [address] performed earlier today. FINDINGS: Lung volumes are at the lower limits of normal. Lungs are clear. There is no pneumothorax or pleural effusion. Cardiac size is normal. Mediastinal contours are normal. There is no evidence for pulmonary edema. IMPRESSION: No acute cardiopulmonary findings. ACT 112: Negative or not required by law. Electronically signed by: Arcadio Godfrey M.D. 03/16/2023 4:32 PM Elbow X-Ray 03/16/23 14:01 XR elbow LT min 3V routine HISTORY: 57 years-old Male l ekbow pain acute left-sided elbow pain without reported trauma COMPARISON: None TECHNIQUE: 3 views of the left elbow FINDINGS: IV catheter noted. Large olecranon enthesophyte with mild dorsal soft tissue swelling. Mild osteoarthritis of the elbow. No acute fracture, dislocation or large joint effusion. IMPRESSION: 1. No acute fracture or dislocation. 2. Large olecranon enthesophyte. 3. Mild dorsal soft tissue swelling. ACT 112: Negative or not required by law. The above report was generated using voice recognition software. It may contain grammatical, syntax or spelling errors. Electronically signed by: Aroldo Tavarez M.D. 03/16/2023 4:32 PM Hip/Pelvis X-Ray 03/16/23 14:01 XR hip LT 2V w pelvis CLINICAL HISTORY: Left hip pain. Fall. COMPARISON: Pelvis and left hip radiograph March 04, 2021. CT of the abdomen and pelvis performed earlier today. FINDINGS: Left hip arthroplasty is intact. Electronic device projects over the left lower quadrant. Sacroiliac joints and symphysis pubis are intact. No acute fracture within the pelvis or hips is identified. Contrast within the ureters and bladder from recent contrast-enhanced CT. Mild joint space narrowing and moderate osteophytosis of the right hip is noted. IMPRESSION: 1. No acute fracture within the pelvis or hips. 2. Intact total left hip arthroplasty. ACT 112: Negative or not required by law. Electronically signed by: Arcadio Godfrey M.D. 03/16/2023 4:[address] 03/16/23 14:03 CT OF THE CERVICAL SPINE WITHOUT CONTRAST CLINICAL HISTORY: Fall. Neck pain. COMPARISON STUDY: Cervical spine CT May 29, 2019. TECHNIQUE: Helical axial images of the cervical spine were obtained without IV contrast. Sagittal and coronal reconstructions were viewed. Automated exposure control was utilized for the study. A dose lowering technique was utilized adhering to the principles of ALARA. FINDINGS: Reversal of the cervical lordosis is unchanged. There is no acute cervical spine fracture. There is moderate to severe multilevel degenerative disc disease and facet arthrosis within the cervical spine. Extensive osteophytosis is noted anteriorly. There has been no significant change in appearance of the cervical spine. IMPRESSION: 1. No acute cervical spine fracture or subluxation. 2. Moderate to severe multilevel degenerative changes within the cervical spine. ACT 112: Negative or not required by law. Electronically signed by: Arcadio Godfrey M.D. 03/16/2023 3:[address] 03/16/23 14:03 CT head/brain wo con CLINICAL HISTORY: 57 years-old Male with tracy. Acute headache TECHNIQUE: Multiple axial CT images of the head were obtained without contrast. A dose lowering technique was utilized adhering to the principles of ALARA. CT DOSE: 3238.85 mGy.cm COMPARISON: 07/22/2022 FINDINGS: No acute intracranial hemorrhage, midline shift, intracranial mass, hydrocephalus, territorial ischemia or abnormal extra-axial collection. Mild white matter hypodensities are again noted suggestive of chronic microvascular ischemic disease. The study is motion degraded. The calvarium is intact. Mastoid air cells are clear. Minimal mucosal thickening of the paranasal sinuses. Unremarkable soft tissues. IMPRESSION: No acute intracranial abnormality. ACT 112: Negative or not required by law. The above report was generated using voice recognition software. It may contain grammatical, syntax or spelling errors. Electronically signed by: Aroldo Tavarez M.D. 03/16/2023 3:42 PM Abdomen/Pelvis CT 03/16/23 14:06 CT OF THE ABDOMEN AND PELVIS WITH CONTRAST CLINICAL HISTORY: Fall. COMPARISON STUDY: CT of the abdomen and pelvis May 29, 2019 and renal ultrasound November 21, 2019. TECHNIQUE: Following IV administration of 87 mL of Optiray, axial images of the abdomen and pelvis were obtained from the lung bases to the proximal femurs. Images were reviewed in the axial, sagittal, and coronal planes. IV contrast was administered without complication. Automated exposure control was utilized for the study. A dose lowering technique was utilized adhering to the principles of ALARA. FINDINGS: Please note that the chest CT will be reported separately. No hemoperitoneum or pneumoperitoneum is present. There is no evidence for traumatic injury to the liver, spleen, adrenal glands, kidneys or pancreas. There is no biliary or pancreatic ductal dilatation. No peripancreatic or pericholecystic stranding is present. A few subcentimeter renal lesions are too small to characterize. A moderate amount stool within the colon and rectum is present. There is no evidence for a bowel obstruction. No free fluid. Caliber and wall thickness of small and large bowel are normal. Left hip arthroplasty is intact. No acute fractures within the visualized skeletal structures are dayami ntified. IMPRESSION: No acute traumatic findings within the abdomen or pelvis. ACT 112: Negative or not required by law. Electronically signed by: Arcadio Godfrey M.D. 03/16/2023 3:[address] 03/16/23 14:06 CT chest diagnostic w con CLINICAL HISTORY: fall down stiars confuse TECHNIQUE: Multidetector row helical CT of the chest was performed with intravenous contrast. Coronal and sagittal reformations were obtained. Automated dose lowering techniques and/or adjustment according to patient size were utilized for this exam. Comparison: Comparison is made to CT chest 05/29/2019 FINDINGS: Lungs and pleura: Bronchial wall thickening is seen. There is a stable 4 mm nodule in the right lower lobe (series 10 image 129) and a 4 mm nodule in the right lower lobe (image 125). Heart and pericardium: Heart size is normal. No pericardial effusion. Vessels: Unremarkable. Mediastinum and chelo: Unremarkable. Chest wall and lower neck: Gynecomastia is noted bilaterally. Abdomen: For findings below the diaphragm, please refer to CT of the abdomen dated the same. Bones: Degenerative changes in the thoracic spine. IMPRESSION: No acute abnormalities and in particular no evidence of acute fractures. ACT 112: Negative or not required by law. Electronically signed by: Navneet Treviño M.D. 03/16/2023 4:17 PM ECG Additional Comments: Poor data quality, interpretation may be adversely affected Normal sinus rhythm Left anterior fascicular block Abnormal ECG When compared with ECG of 23-JUL-2022 03:54, Vent. rate has increased BY 36 BPM T wave inversion no longer evident in Inferior leads Nonspecific T wave abnormality, improved in Anterol ateral leads Code Status & VTE Plan Code Status Full code VTE Prophylaxis Plan VTE Prophylaxis will be ordered: Yes Supervising Physician Co-Signing Physician Notes Patient seen and examined, chart reviewed, case discussed with Davonte Higginbotham PA-C and I agree with the assessment and plan as above except as otherwise noted Labs and images reviewed Chung is seen at the bedside following a seizure. Patient has had multiple seizures in the past, but reports these normally break relatively quickly after a single dose of Ativan at the most. Had [id number] seizures, which his caregiver who is at bedside reports is very unusual for him. Patient has been taking his antiepileptics as prescribed; however is also smoking marijuana recently. He is alert, oriented and in no distress at bedside. Answers questions appropriately. Lungs are clear. Moves all extremities equally at bedside. Given concurrent seizures which continued even after patient received Ativan from EMS to agree with overnight monitoring. Ativan on-call, Teja continued. Chronic medical issues managed as above PG Care Time/CCT Total # of Minutes Spent Total Time Spent with Patient: Total time spent is greater than 50% in coordination of care (as documented) at patient's floor/unit and/or counseling patient: Coding [place] [address] INT INP/OBS CARE 3/75MIN Patient Type Established Medical Decision Making High Complexity Diagnoses Seizures R56.9 Elevated troponin R77.8 Type 1 diabetes mellitus E10.9 Depression F32.A Hypertension I10 Polysubstance abuse F19.10 Hyperlipidemia E78.5
[2023-03-16] MEDS ORDERED: CARBOHYDRATES FOR HYPOGLYCEMIA PO PRN (17:17)
[2023-03-16] MEDS ORDERED: DEXTROSE 50% 50 ML SYRINGE IV PRN (17:17)
[2023-03-16] MEDS ORDERED: GLUCAGON FOR INJ 1 MG VIAL SQ PRN (17:17)
[2023-03-16] MEDS ORDERED: GLUCOSE 10 TAB/TUBE PO PRN (17:17)
[2023-03-16] MEDS ORDERED: GLUCOSE 40% GEL 15 GM TUBE PO PRN (17:17)
[2023-03-16] MEDS ORDERED: PHARMACY GLYCEMIC MGMT CONSULT PRN (17:17)
[2023-03-16] MEDS ORDERED: LORazepam 2 MG/1 ML VIAL IV PRN (18:01)
[2023-03-16 18:02] LABS: Amphetamines+Metham, Urine Neg (Neg); Barbiturates, Urine Neg (Neg); Benzodiazepine, Urine Neg (Neg); Cocaine, Urine Neg (Neg); MDMA (Ecstacy), Urine Pos (Neg); Methadone, Urine Neg (Neg); Opiate, Urine Neg (Neg); Phencyclidine, Urine Neg (Neg)
[2023-03-16] MEDS ORDERED: LANTUS PER UNIT CHARGE SQ STA (18:29)
[2023-03-16] MEDS ORDERED: LACTATED RINGER'S 1,000 ML IV SCH (18:30)
[2023-03-16] MEDS: INSULIN ASPART PER UNIT CHARGE SC SCH ×2 (18:56→21:22)
[2023-03-16] MEDS ORDERED: OXcarbazepine 150 MG TABLET PO STA (19:13)
[2023-03-16] MEDS ORDERED: STAT IV STA (19:35)
[2023-03-16] MEDS ORDERED: CALCIUM GLUCONATE 10% 1,000 MG in DEXTROSE 5% 50 ML IV ONE (19:35)
[2023-03-16] MEDS ORDERED: amLODIPine BESYLATE 5 MG TAB PO ONE (19:39)
--- NOTE | 2023-03-16 19:58 | Pharmacy Report ---
Pharmacy Glycemic Short Note 2 - Date of Service March 16, 2023 - Glycemic Short BSG Results (Last 24 hours): 03/16/23 03/16/23 03/16/23 13:56 13:59 14:03 Glucose 319 H* POC Glucose 266 H POC Glucose (other) 330 H 03/16/23 03/16/23 16:47 18:42 Glucose POC Glucose 150 H 130 H POC Glucose (other) OUTPATIENT ANTIDIABETIC REGIMEN: * Lantus 26 units SC AM * Novolog 6 units SC if needed per sliding scale prior to meals * Ozempic 0.25 mg SC once weekly (just recently prescribed and hasn't started yet) * HbA1c pending ASSESSMENT: * 57 yo M admitted on 03/16/23 secondary to seizures. Pharmacy has been consulted to assist with inpatient glycemic management. Patient is a well controlled Type 2 diabetic as an outpatient. Please refer to outpatient regimen and most recent HbA1c above. * Ordered a T2DM diet. Unsure if tolerating at this time but will monitor. LR running at 100 cc/hr. * BSGs since admission have been [phone] mg/dL. Will order insulin regimen based on previous admission data. PLAN FOR INPATIENT GLYCEMIC CONTROL: * Hold outpatient GLP1-RA * Basal insulin * Lantus 10 units SC x 1 * Reassess basal dose in AM * Bolus insulin * NovoLog per scale ACHS or Q6hrs while NPO * Goal Range: Low 110 mg/dL - High 140 mg/dL * Correction Factor: 30 mg/dL/unit * Nutritional / Prandial insulin per carb ratio of 1 unit per 10 grams CHO consumed
[2023-03-16] MEDS ORDERED: LABETALOL HCL IV 5 MG/ML 20ML IV PRN (21:00)
[2023-03-16] MEDS ORDERED: levETIRAcetam 1,500 MG in 0.9 % SODIUM CHLORIDE 100 ML IV ONE (21:00)
[2023-03-16] MEDS ORDERED: LANTUS PER UNIT CHARGE SQ SCH (21:00)
[2023-03-16 21:04] LABS: Troponin I High Sensitivity 33.2 pg/ml (0-20)
[2023-03-17] MEDS ORDERED: INSULIN ASPART PER UNIT CHARGE SC ONE (02:00)
[2023-03-17 07:44] LABS: Basophils # (auto) 0.04 K/uL (0-0.2); Basophils % (auto) 0.5 %; Eosinophils # (auto) 0.08 K/uL (0-0.50); Eosinophils % (auto) 1.1 %; Hematocrit (blood only) 36.2 % (42.0-52.0); Hemoglobin 11.8 g/dl (14.0-18.0); Immature Granulocytes # (auto) 0.05 K/uL (0.01-0.20); Immature Granulocytes % (auto) 0.7 %; Lymphocytes # (auto) 1.57 K/uL (1.2-3.4); Lymphocytes % (auto) 21.2 %; Mean Corpuscular Hemoglobin 28.5 pg (25.0-34.0); Mean Corpuscular Hgb Conc 32.6 g/dL (32.0-36.0); Mean Corpuscular Volume 87.4 fL (80.0-100.0); Mean Platelet Volume 9.9 fL (9.4-12.4); Monocytes # (auto) 0.41 K/uL (0.11-0.59); Monocytes % (auto) 5.5 %; Neutrophils # (auto) 5.26 K/uL (1.40-6.50); Platelet Count 223 K/uL (130-400); RDW Coefficient of Variation 11.9 % (11.5-14.5); RDW Standard Deviation 38.3 fL (36.4-46.3); Red Blood Count 4.14 M/uL (4.70-6.10); White Blood Count 7.41 K/ul (4.8-10.8)
[2023-03-17 08:02] LABS: Albumin Globulin Ratio 1.6 (0.9-2); Albumin Level 3.4 gm/dl (3.4-5.0); BUN Creatinine Ratio 10.3 (10-20); Bilirubin,Total 0.4 mg/dl (0.2-1.0); Calcium 8.6 mg/dl (8.6-10.3); Creatinine Clr Calc Pharmacy 111.2 ml/min; Est GFR (African American) 109.5 ml/min; Est GFR (Non-African American) 94.5 ml/min; Globulin 2.1 gm/dl (2.5-4.0); Magnesium 1.5 mg/dl (1.7-2.4); Potassium 3.9 mmol/L (3.5-5.1); Total Protein 5.5 gm/dl (6.0-8.3)
[2023-03-17] MEDS: INSULIN ASPART PER UNIT CHARGE SC SCH ×3 (08:09→17:29)
[2023-03-17 08:24] LABS: Prothrombin Time 10.5 Seconds (9.0-12.0)
--- NOTE | 2023-03-17 08:40 | Hospitalist Progress Note ---
Date of Service March 17, 2023 Assessment & Plan (1) Seizures: Plan: -Admit to the PCU on tele -The patient is currently afebrile, hemodynamically stable, and stable on RA -The patient experienced multiple seizures for approximately 1.5 hours from noon to arrival in the ED, did not break after multiple doses of Ativan by EMS, currently stable after 2gm IV keppra in the ED -At this time it appears that the patient has been taking his Keppra and Oxcarbazepine as prescribed, however, he is smoking marijuana daily -No acute trauma on extensive trauma workup -Continue seizure precautions -Will give him his 1500 mg of Keppra tonight as IV and continue with PO dosing tomorrow -Will continue BID PO Oxcarbazepine -Will given another 1L LR on admission as he appears dry -Follow urine drug screen -Will hold chemical PPX at this time with his trauma, will start with BL SCD's -AM CBC, CMP, Mag, PT/INR 03/17 -- (2) Elevated troponin: Plan: -Initial high sen trop was WNL, 2 hour repeat was increased from 12.5 --> 29 --> 33.2 -The patient is without chest pain/discomfort and no acute changes on ECG -Will repeat another high sen trop at 1999 and continue to monitor on tele (3) Type 1 diabetes mellitus: Plan: -Initially hyperglycemic with BSG of 319 in the ED, fell to 185 after initial fluid bolus -Monitor BSG q4h until he is eating consistently, goal is 110-140 -Typically on 26 units of glargine qam, did not have his dose today -Will start 10 units glargine BID tonight, continue with a CF of 50 and CR of 15 for now -Pharmacy DM consult placed as he is type 1 and may require multiple adjustments -DM I diet when he clears dysphagia screen (4) Depression: Plan: -Continue fluoxetine (5) Hypertension: Plan: -Stable -Continue amlodipine (6) Polysubstance abuse: Plan: -Follow urine tox screen -Continue to stress the importance of cessation (7) Hyperlipidemia: Plan: -Hold stain until his CK level results Plan The patient was discussed with Dr. Wilder at the time of the admission Admission and Anticipated Discharge Date Admission Date: March 16, 2023 Results & Data Results & Data Vital Signs (Past 12 Hours) Vital Signs Temp Pulse Pulse Resp BP Pulse Ox O2 Del Method 03/17/23 07:57 36.6 C 75 18 167/88 H 95 Room Air 03/17/23 02:38 37 C 75 16 125/74 96 Nasal Cannula 03/16/23 23:08 78 03/16/23 22:29 36.7 C 81 17 156/92 H 98 Room Air 03/16/23 22:28 36.7 C 81 17 156/92 H 98 Room Air 03/16/23 21:33 Nasal Cannula O2 Flow Rate 03/17/23 07:57 03/17/23 02:38 1 03/16/23 23:08 03/16/23 22:29 1 03/16/23 22:28 1 03/16/23 21:33 2 PG Care Time/CCT Total # of Minutes Spent Total Time Spent with Patient: Total time spent is greater than 50% in coordination of care (as documented) at patient's floor/unit and/or counseling patient: Coding Diagnoses Seizures R56.9 Elevated troponin R77.8 Type 1 diabetes mellitus E10.9 Depression F32.A Hypertension I10 Polysubstance abuse F19.10 Hyperlipidemia E78.5
[2023-03-17] MEDS ORDERED: FLUoxetine HCL 20 MG CAP PO SCH (09:00)
[2023-03-17] MEDS ORDERED: LANTUS PER UNIT CHARGE SC SCH (09:00)
[2023-03-17] MEDS ORDERED: levETIRAcetam 500 MG TAB PO SCH (09:00)
[2023-03-17] MEDS ORDERED: OXcarbazepine 150 MG TABLET PO SCH (09:00)
[2023-03-17] MEDS ORDERED: amLODIPine BESYLATE 5 MG TAB PO SCH (09:00)
[2023-03-17] MEDS: MAGNESIUM SULFATE / D5W 1 GM/100 ML BAG IV SCH ×3 (09:10→10:41)
[2023-03-17 09:28] LABS: Estimated Average Glucose 146 mg/dl; Hemoglobin A1C 6.7 % (4.5-5.6)
[2023-03-17 10:44] LABS: Troponin I High Sensitivity 18.4 pg/ml (0-20)
--- NOTE | 2023-03-17 13:09 | Pharmacy Report ---
Pharmacy Glycemic Short Note 2 - Date of Service March 17, 2023 - Glycemic Short BSG Results (Last 24 hours): 03/16/23 03/16/23 03/16/23 13:56 13:59 14:03 Glucose 319 H* POC Glucose 266 H POC Glucose (other) 330 H 03/16/23 03/16/23 03/16/23 16:47 18:42 20:48 Glucose POC Glucose 150 H 130 H 90 POC Glucose (other) 03/16/23 03/17/23 03/17/23 21:18 02:01 06:04 Glucose POC Glucose 139 H 96 91 POC Glucose (other) 03/17/23 03/17/23 03/17/23 06:54 07:16 11:17 Glucose 98 POC Glucose 117 H 124 H POC Glucose (other) OUTPATIENT ANTIDIABETIC REGIMEN: * Lantus 26 units SC AM * Novolog 6 units SC if needed per sliding scale prior to meals * Ozempic 0.25 mg SC once weekly (just recently prescribed and hasn't started yet) ASSESSMENT: 03/17: * Today, fasting BSG 117 mg/dL. Fasting BSG within range today despite greatly reduced TDD of Lantus administered inpatient versus home regimen. * T2DM diet continued, patient consumed 49g of carbs for breakfast today and 38g at lunch. * NovoLog with 30-10 parameters adequately correcting carbs; lunchtime BSG 124 mg/dL. Patient has not required any bolus insulin specifically intended for BSG correction in respect to goal range. * HbA1c 6.7% on today's AM labs. HbA1c was previously measured as 6.5% on 12/08/2203/16 (initial): * 57 yo M admitted on 03/16/23 secondary to seizures. Pharmacy has been consulted to assist with inpatient glycemic management. Patient is a well controlled Type 2 diabetic as an outpatient. Please refer to outpatient regimen and most recent HbA1c above. * Ordered a T2DM diet. Unsure if tolerating at this time but will monitor. LR running at 100 cc/hr. * BSGs since admission have been [phone] mg/dL. Will order insulin regimen based on previous admission data. PLAN FOR INPATIENT GLYCEMIC CONTROL: * Hold outpatient GLP1-RA * Basal insulin * Lantus 10 units SC daily. * Bolus insulin * NovoLog per scale ACHS or Q6hrs while NPO * Goal Range: Low 110 mg/dL - High 140 mg/dL * Correction Factor: 30 mg/dL/unit * Nutritional / Prandial insulin per carb ratio of 1 unit per 10 grams CHO consumed
--- NOTE | 2023-03-17 13:13 | Electrocardiogram Report ---
Test Reason : Blood Pressure : / mmHG Vent. Rate : 097 BPM Atrial Rate : 097 BPM P-R Int : 160 ms QRS Dur : 088 ms QT Int : 330 ms P-R-T Axes : 062 -46 014 degrees QTc Int : 419 ms Poor data quality, interpretation may be adversely affected Normal sinus rhythm Left anterior fascicular block Abnormal ECG When compared with ECG of 23-JUL-2022 03:54, Vent. rate has increased BY 36 BPM T wave inversion no longer evident in Inferior leads Nonspecific T wave abnormality, improved in Anterolateral leads Confirmed by Venkata Kumar ([id number] on 03/17/2023 1:12:36 PM Referred By: REFERRED SELF Confirmed By:Too Kumar
--- NOTE | 2023-03-17 14:13 | Discharge Summary ---
Date of Service March 17, 2023 Admission HPI Per Admitting Provider Chung Riddle is a 57yo male with history of type 1 DM, HTN, Seizure, hyperlipidemia, polysubstance abuse, as-well-as prior opioid use disorder on Suboxone therapy presenting by EMS due to seizure and fall. In the ED the patient's vitals were found to be stable. Labs were remarkable for a stable Hgb of 12, stable Cr of 1.03, initial glucose of 319, ionized calcium of 1.05 otherwise stable electrolytes, initial high sen trop of 12 with 2 hour repeat of 29, lipase of 112, clean UA, negative medical alcohol level, and covid [address] of the head and cervical spine were read as "No acute intracranial abnormality.". CT of the abd/pelvis was read as "No acute traumatic findings within the abdomen or pelvis.". CT of the chest was read as "No acute abnormalities and in particular no evidence of acute fractures.". Xray of the left elbow was read as "No acute fracture or dislocation. 2. Large olecranon enthesophyte. 3. Mild dorsal soft tissue swelling.". And CXR and xray of the pelvis were negative for acute trauma. Prior to admission the patient was given 2gm IV keppra and 2L NSS. At the time of the exam the patient was sleeping comfortably in bed with his [id number]-[id number] sitting bedside, the majority of the history was obtained from the [id number]. She states that the patient and his daughter live with she and her . She and her help to care for the patient, such as organizing and ensure he takes his medications each day. She states that he had been in his normal state of health when they heard a loud noise near the steps. When they found the patient he was lying on his back, with his head leaning against the door, having a seizure. The patient's sister in law explained that she has witnessed his seizures multiple times in the past and this was similar to his prior episodes. She states that the first seizure lasted for approximately 30 seconds to 1 min when the patient regained consciousness. He was confused like his typical postictal states and stated that he could not sit up yet. He then slumped back to the ground and proceeded to have another seizure. The patient's family states that this is not normal for him, typically he only has one seizure but they stop once the first breaks. She states that he had multiple more seizures, even after EMS arrived and gave him Ativan. When asked, the patient's family confirms that he took his PM meds last night but had yet to take his am meds before the seizure occurred. The patient woke when I called his name and gently shook his arm. He was fatigued but alert and answers questions appropriately. He was unaware he had multiple seizures earlier today. When asked, he currently denies any pain or other complaints. When asked about alcohol and recreational drug use he confirms that he is smoking marijuana approximately daily. He will drink vodka "a few" nights a week but it will take him approximately a month to get through a fifth of vodka, his family confirmed. He is not currently on Suboxone or Percocet at t his time. He denies any recent IV drug use. His family explains that he had a left knee replacement early last month at [facility], his family confirms that he finished his last dose of Eliquis today for post-op DVT PPX. I stressed to the patient that marijuana can decrease the seizure threshold, and stressed the improtance with cessation of recreational drugs, he expressed understanding. Please refer to Dr. Wilder's attestation for any changes to the treatment plan Admission Exam Per Admitting Provider Physical Exam: General:In no acute distress, stated age, well-nourished, good hygiene HEENT:Normocephalic, atraumatic, no scleral icterus, pupils around round, symmetrical, and reactive to light, dry mucus membranes, trachea midline, no thyromegaly Chest/Pulm:No respiratory distress, symmetrical chest expansion, clear breath sounds throughout Cardiac:RRR, no murmurs noted Abdomen:Negative for ascites and bruising, normoactive bowel sounds, soft, non-tender to palpation throughout Musculoskeletal:Symmetrical and without signs of acute trauma, upper and lower extremities with full ROM, no tenderness to palpation of the face, head, cervical, thoracic, or lumbar spine, no atrophy, spasticity, or flaccidity Extremities:Radial, dorsalis pedis, and posterior tibial pulses are intact and symmetrical, no edema noted in the BL LE's Skin:Warm, dry, no rashes , lesions, or scars noted Neuro:Alert and oriented to person, month, year, no focal defects, CN II-XII tested and intact, finger to nose test negative, no tremors noted Psych:No acute distress, fatigued but calm and cooperative during the exam Principal Diagnosis Seizure Discharge Exam General: WD/WN male sleeping upon entry, easily awoken, NAD HEENT: head normocephalic, atraumatic, hair in dreads, trachea midline without deviation, mmm Resp: CTA, no w/c, on RA CV: RRR, no significant mrg, no pitting edema GI: +BS, soft/NT : no finley MSK/Neuro: no focal deficit, no slurred speech/facial droop, prior incision to right knee well approximated, no evidence for infection/drainage Psych: AOx3, pleasant and wanting to go home Discharge Data Allergies Allergy/AdvReac Type Severity Reaction Status Date / Time No Known Allergies Allergy Verified 03/16/23 14:55 Consultations 03/16/23 16:18 ED Decision to Admit Stat Ordered Studies Chest X-Ray 03/16/23 14:01 SUPINE PORTABLE AP CHEST RADIOGRAPH CLINICAL HISTORY: Chest pain, nonspecific COMPARISON STUDY: Chest radiograph March 14, [address] performed earli er today. FINDINGS: Lung volumes are at the lower limits of normal. Lungs are clear. There is no pneumothorax or pleural effusion. Cardiac size is normal. Mediastinal contours are normal. There is no evidence for pulmonary edema. IMPRESSION: No acute cardiopulmonary findings. ACT 112: Negative or not required by law. Electronically signed by: Arcadio Godfrey M.D. 03/16/2023 4:32 PM Elbow X-Ray 03/16/23 14:01 XR elbow LT min 3V routine HISTORY: 57 years-old Male l ekbow pain acute left-sided elbow pain without reported trauma COMPARISON: None TECHNIQUE: 3 views of the left elbow FINDINGS: IV catheter noted. Large olecranon enthesophyte with mild dorsal soft tissue swelling. Mild osteoarthritis of the elbow. No acute fracture, dislocation or large joint effusion. IMPRESSION: 1. No acute fracture or dislocation. 2. Large olecranon enthesophyte. 3. Mild dorsal soft tissue swelling. ACT 112: Negative or not required by law. The above report was generated using voice recognition software. It may contain grammatical, syntax or spelling errors. Electronically signed by: Aroldo Tavarez M.D. 03/16/2023 4:32 PM Hip/Pelvis X-Ray 03/16/23 14:01 XR hip LT 2V w pelvis CLINICAL HISTORY: Left hip pain. Fall. COMPARISON: Pelvis and left hip radiograph March 04, 2021. CT of the abdomen and pelvis performed earlier today. FINDINGS: Left hip arthroplasty is intact. Electronic device projects over the left lower quadrant. Sacroiliac joints and symphysis pubis are intact. No acute fracture within the pelvis or hips is identified. Contrast within the ureters and bladder from recent contrast-enhanced CT. Mild joint space narrowing and moderate osteophytosis of the right hip is noted. IMPRESSION: 1. No acute fracture within the pelvis or hips. 2. Intact total left hip arthroplasty. ACT 112: Negative or not required by law. Electronically signed by: Arcadio Godfrey M.D. 03/16/2023 4:[address] 03/16/23 14:03 CT OF THE CERVICAL SPINE WITHOUT CONTRAST CLINICAL HISTORY: Fall. Neck pain. COMPARISON STUDY: Cervical spine CT May 29, 2019. TECHNIQUE: Helical axial images of the cervical spine were obtained without IV contrast. Sagittal and coronal reconstructions were viewed. Automated exposure control was utilized for the study. A dose lowering technique was utilized adhering to the principles of ALARA. FINDINGS: Reversal of the cervical lordosis is unchanged. There is no acute cervical spine fracture. There is moderate to severe multilevel degenerative disc disease and facet arthrosis within the cervical spine. Extensive osteophytosis is noted anteriorly. There has been no significant change in appearance of the cervical spine. IMPRESSION: 1. No acute cervical spine fracture or subluxation. 2. Moderate to severe multilevel degenerative changes within the cervical spine. ACT 112: Negative or not required by law. Electronically signed by: Arcadio Godfrey M.D. 03/16/2023 3:[address] 03/16/23 14:03 CT head/brain wo con CLINICAL HISTORY: 57 years-old Male with tracy. Acute headache TECHNIQUE: Multiple axial CT images of the head were obtained without contrast. A dose lowering technique was utilized adhering to the principles of ALARA. CT DOSE: 3238.85 mGy.cm COMPARISON: 07/22/2022 FINDINGS: No acute intracranial hemorrhage, midline shift, intracranial mass, hydrocephalus, territorial ischemia or abnormal extra-axial collection. Mild white matter hypodensities are again noted suggestive of chronic microvascular ischemic disease. The study is motion degraded. The calvarium is intact. Mastoid air cells are clear. Minimal mucosal thickening of the paranasal sinuses. Unremarkable soft tissues. IMPRESSION: No acute intracranial abnormality. ACT 112: Negative or not required by law. The above report was generated using voice recognition software. It may contain grammatical, syntax or spelling errors. Electronically signed by: Aroldo Tavarez M.D. 03/16/2023 3:42 PM Abdomen/Pelvis CT 03/16/23 14:06 CT OF THE ABDOMEN AND PELVIS WITH CONTRAST CLINICAL HISTORY: Fall. COMPARISON STUDY: CT of the abdomen and pelvis May 29, 2019 and renal ultrasound November 21, 2019. TECHNIQUE: Following IV administration of 87 mL of Optiray, axial images of the abdomen and pelvis were obtained from the lung bases to the proximal femurs. Images were reviewed in the axial, sagittal, and coronal planes. IV contrast was administered without complication. Automated exposure control was utilized for the study. A dose lowering technique was utilized adhering to the principles of ALARA. FINDINGS: Please note that the chest CT will be reported separately. No hemoperitoneum or pneumoperitoneum is present. There is no evidence for traumatic injury to the liver, spleen, adrenal glands, kidneys or pancreas. There is no biliary or pancreatic ductal dilatation. No peripancreatic or pericholecystic stranding is present. A few subcentimeter renal lesions are too small to characterize. A moderate amount stool within the colon and rectum is present. There is no evidence for a bowel obstruction. No free fluid. Caliber and wall thickness of small and large bowel are normal. Left hip arthroplasty is intact. No acute fractures within the visualized skeletal structures are identified. IMPRESSION: No acute traumatic findings within the abdomen or pelvis. ACT 112: Negative or not required by law. Electronically signed by: Arcadio Godfrey M.D. 03/16/2023 3:[address] 03/16/23 14:06 CT chest diagnostic w con CLINICAL HISTORY: fall down stiars confuse TECHNIQUE: Multidetector row helical CT of the chest was performed with intravenous contrast. Coronal and sagittal reformations were obtained. Automated dose lowering techniques and/or adjustment according to patient size were utilized for this exam. Comparison: Comparison is made to CT chest 05/29/2019 FINDINGS: Lungs and pleura: Bronchial wall thickening is seen. There is a stable 4 mm nodule in the right lower lobe (series 10 image 129) and a 4 mm nodule in the right lower lobe (image 125). Heart and pericardium: Heart size is normal. No pericardial effusion. Vessels: Unremarkable. Mediastinum and chelo: Unremarkable. Chest wall and lower neck: Gynecomastia is noted bilaterally. Abdomen: For findings below the diaphragm, please refer to CT of the abdomen dated the same. Bones: Degenerative changes in the thoracic spine. IMPRESSION: No acute abnormalities and in particular no evidence of acute fractures. ACT 112: Negative or not required by law. Electronically signed by: Navneet Treviño M.D. 03/16/2023 4:17 PM Hospital Course (1) Seizures: Multiple seizures at home, occuring ~1.5hours prior to arrival. Did not break after several doses ativan by EMS but rsolved after 2gm IV keppra in ER No trauma on extrensive work-up On Keppra/Oxcarbazepine [employer], follows with Dr Cunninhgam Of note, patient also recently rx for CHantix for smoking cessation --> STOPPED THIS, and recommended NOT to use this medication w/ his history of seizures. Drug screening, +THC (uses medical marijuana) and ecstasy (on fluoxetine, ?false negative -- denied use) Maintained seizure precautions Given 1L LR on admission as well as appeared dehydrated No further seizure activity. Discussed w/ patient about avoiding further chantix, limiting/avoiding MMJ use and discussed f/u pharmacist at dispensary given hx seizures for further discussion if he chooses to continue to use medical marijuana Patient wanting to go home, Keppra level pending at d/c and discussed can have f/u Dr Cunningham outpatient and would need to return for any further seizure actvity (2) Elevated troponin: -Initial high sen trop was WNL, 2 hour repeat was increased from 12.5 --> 29 --> 33.2 --> 18.4 Suspect demand ischemia from seizure/dehydration. NO CHEST PAIN/discomfort reported. No acute changes on EKG NSR on telemetry (3) Type 1 diabetes mellitus: Initially hyperglycemic with BSG of 319 in the ED, fell to 185 after initial fluid bolus Pharmacy consulted, DM I diet BSGs acceptable, to f/u with [facility] outpatient, has evelyn monitor in place (4) Depression: Continue fluoxetine (5) Hypertension: Stable Continued amlodipine Lisinopril on hold on admit given dehydration, to resume at d/c (6) Polysubstance abuse: Smoking cessation for marijuana/follow up discussions w/ pharmacist at his dispensary Drug screen as above (7) Hyperlipidemia: Hold stain until his CK level results -- slightly elevated, given IVF and statin held -- only minimally elevated. urine output acceptable and Cr stable Can resume statin at d/c Total Time Total Time Spent Total Time Spent (In Minutes): 60 Discharge Plan Discharge Items Patient Disposition: Home - Home Health Services Reason For Visit: SEIZURE, FALL Discharge Diagnosis: Seizure Goals: You have been hospitalized for an acute medical problem. During your stay at [facility], we have made an effort to correct the problem that brought you to the hospital while keeping you as comfortable as possible. Medications were used to bring your condition under control and your discharge i nstructions will include directions for any medications you should take after leaving the hospital. Please make sure you see your Primary Care Provider as part of your follow up plan. Activity: Resume your previous activity Non-emergency contact: Primary Care Provider and Neurologist Call non-emergency contact if: you have any medication questions and your symptoms worsen Follow-up/Referrals: Mine Maxwell CRNP [Primary Care Provider] - 03/26/23 10:30 am Nacho Cunningham MD [Physician] - 04/01/23 9:00 am (TELEHEALTH) Diet: Carb Consistent or DM2 and Heart Healthy Addtl Attending Provider Instructions: You have been hospitalized for seizure activity. You were given IV medications and admitted for observation. You had no further seizure activity while in the hospital. CT of the head was negative. You were also given IV hydration. Keppra level is pending at time of discharge. As discussed, your medical marijuana use can lower seizure threshold, and it may be beneficial to discuss with the pharmacist at the dispensary your specific medical history if you continue to use this for more appropriate regimen. Please follow up with Dr Cunningham in the next 1-2 weeks for ongoing treatment/monitoring of seizures. IF keppra level is low, your medications may need altered but you have remained stable on the same dosing. You SHOULD NOT take any more Chantix for smoking cessation given your seizure history as this can increase risks for seizures as well, as discussed. You should follow up with primary care in the next week to monitor your progress. Continue home health therapy. Please return to the ER for any fevers/chills, chest pain, shortness of breath, repeat seizure activity or for any other symptoms concerning for you. It has been a pleasure being a part of the medical team providing for you while you have been in the hospital. Take care! Pending Studies at Discharge: Yes Studies:: Keppra level Stand-Alone Forms: My [facility], Smoking Cessation Medications and DC Order Prescriptions: Continued (DME) blood-glucose meter [Accu-Chek Guide Glucose Meter] Misc See Rx Instructions .ROUTE .MEDSUPPLY Qty: 1 0RF Rx Instructions: test 4x daily DX e11.65 (DME) Accu-Chek Guide test strips Strip See Rx Instructions .ROUTE .MEDSUPPLY Qty: 300 3RF Rx Instructions: Test 3 times a day E11.9 amlodipine 5 mg tablet 5 mg PO DAILY Qty: 90 3RF oxcarbazepine 300 mg tablet 300 mg PO BID 30 Days Qty: 60 5RF levetiracetam 1,000 mg tablet 1,000 mg PO BID Qty: 60 5RF fluoxetine 40 mg capsule 40 mg PO DAILY Qty: 90 1RF Rx Instructions: pt aware dose change hydrocodone-acetaminophen 5-325 mg tablet 1 tab PO BID PRN (Reason: Pain) Qty: 30 0RF Rx Instructions: 1 tab PO BID prn (DME) pen needle, diabetic 32 gauge x 5/16" needle See Rx Instructions .Route Qty: 100 5RF Rx Instructions: Use four times daily with insulin pens Dx:E11.9 levetiracetam 500 mg tablet 500 mg PO BID Qty: 60 2RF Rx Instructions: take with 1000mg dose for total of 1500mg BID atorvastatin 20 mg tablet 20 mg PO QAM Qty: 90 3RF lisinopril 20 mg tablet 20 mg PO QAM Qty: 90 3RF (DME) lancets [Accu-Chek Fastclix Lancet Drum] Misc See Rx Instructions .ROUTE .MEDSUPPLY Qty: 300 5RF Rx Instructions: Test three times daily Ozempic 0.25 mg or 0.5 mg (2 mg/3 mL) pen injector 0.25 mg subcut Q7D Qty: 3 0RF Rx Instructions: PER PT'S [id number] "DID NOT START YET". insulin glargine [Basaglar KwikPen U-100 Insulin] 100 unit/mL (3 mL) insulin pen 26 unit SUBCUT QAM insulin aspart U-100 [Novolog FlexPen U-100 Insulin] 100 unit/mL (3 mL) insulin pen 6 unit SQ TID Rx Instructions: PER PT "ONLY TAKE IF NEEDED". PER SLLIDING SCALE (DME) blood-glucose meter [Blood Glucose Monitoring] Kit See Rx Instructions .Route Qty: 1 0RF Rx Instructions: check 4-5 times a day buprenorphine-naloxone 8-2 mg tablet, sublingual 2 tab SUBLINGUAL QAM (DME) FreeStyle Evelyn 14 Day Sensor Kit See Rx Instructions .Route Qty: 1 0RF Rx Instructions: As directed (DME) FreeStyle Evelyn 14 Day [place] Misc See Rx Instructions .Route Qty: 1 0RF Rx Instructions: As directed Discontinued varenicline [Chantix] 1 mg tablet 1 mg PO BID Qty: 56 4RF Discharge Orders: Discharge Order (Routine); Ordered 03/17/23 Ordered By: Cristina Schultz Admission Data Admit Date/Time: 03/16/23 17:16 Attending Provider: Shad Shahid Admit Provider: Young Wilder Primary Care Provider: Mine Maxwell Other Providers: Young Wilder Other Interventions: Discharge Summary Assessment (RN) Last Done: 03/17/23 15:12 Supervising Physician Co-Signing Physician Notes The patient was seen by me. The chart was reviewed. Case discussed with FRANCOISE Ashford. Agree with assessment and plan. He is stable for discharge to home today, March 17 Coding Level of Care Code 89340 INP/OBS DISCH >30 MIN Diagnoses Seizures R56.9 Elevated troponin R77.8 Type 1 diabetes mellitus E10.9 Depression F32.A Hypertension I10 Polysubstance abuse F19.10 Hyperlipidemia E78.5
--- NOTE | 2023-03-17 15:49 | Communication Note ---
Date of Service: March 17, 2023 By CMS guidelines, a determination that the admission or continued stay is not medically necessary has been made by a member of the UR committee and a phys ician for this hospital stay, therefore a Code 44 will be completed and the Inpatient admission will be changed to outpatient.
--- NOTE | 2023-03-17 15:54 | Communication Note ---
Date of Service: March 17, 2023 By CMS guidelines, a determination that the admission or continued stay is not medically necessary has been made by a member of the UR committee and a phy sician for this hospital stay, therefore a Code 44 will be completed and the Inpatient admission will be changed to outpatient.
[2023-03-22 16:51] LABS: MDA negative; MDEA negative; MDMA (Ecstasy) Urine, Confirm negative; Marijuana Quant, GCMS Urine 56 ng/mL (<5)
== END 2023-03-17 17:55 | disposition home health service (06) | DRG 101 ==
LOC: ED 13:52 → EDINP 17:16 → SUATTDRO 17:16 → INTOOBSV 17:16 → EDINP 21:33 → 2S 21:59